=== PATIENT | male | born 1955 | race American Indian/Alaskan Native ===

== ENCOUNTER 2019-08-22 09:07 | Day surgery (SDC) | payer BC, MEDICARE ==
[2019-08-22] MEDS ORDERED: SODIUM CHLORIDE 0.9% 500 ML 500 ML IV SCH (10:00)
[2019-08-22 10:09] LABS: Basophils # (Auto) 0.1 K/mm3 (0.0-0.1); Basophils % (Auto) 2.2 % (0.0-1.8); Eosinophils # (Auto) 0.2 K/mm3 (0.0-0.4); Eosinophils % (Auto) 3.5 % (0.0-4.3); Hematocrit 35.5 % (35.5-45.6); Hemoglobin 11.8 gm/dl (11.8-15.2); Lymphocytes # (Auto) 2.1 K/mm3 (1.2-5.4); Lymphocytes % (Auto) 31.2 % (13.4-35.0); Mean Corpuscular HGB Conc 33 % (32-34); Mean Corpuscular Volume 80 fl (84-94); Monocytes # (Auto) 0.6 K/mm3 (0.0-0.8); Monocytes % (Auto) 9.3 % (0.0-7.3); Platelet Count 508 K/mm3 (140-440); Red Blood Count 4.47 M/mm3 (3.65-5.03)
[2019-08-22 10:13] LABS: INR 1.38 (0.87-1.13)
[2019-08-22 10:14] LABS: Partial Thromboplastin Time 30.3 Sec. (24.2-36.6)
[2019-08-22 10:20] LABS: Calcium 10.3 mg/dL (8.4-10.2)
[2019-08-22] MEDS ORDERED: HEPARIN/NS 5000 UNIT/500ML 1,500 ML IR ONE (11:43)
[2019-08-22] MEDS ORDERED: LIDOCAINE 1%/EPINEPHRINE 1:100,000 VIAL (20 ML) INFILTRATI ONE (11:43)
[2019-08-22] MEDS ORDERED: NITROGLYCERIN SYRINGE 3 ML ONE (11:46)
[2019-08-22] MEDS ORDERED: SODIUM CHLORIDE 0.9% 500 ML 500 ML ONE (12:04)
[2019-08-22] MEDS: fentaNYL 100 MCG/2 ML INJ ONE ×4 (12:10→13:40)
[2019-08-22] MEDS: MIDAZOLAM 2 MG/2 ML INJ ONE ×4 (12:10→13:40)
[2019-08-22] MEDS ORDERED: VERAPAMIL 5 MG/2 ML INJ ONE (12:27)
[2019-08-22] MEDS ORDERED: SODIUM CHLORIDE 0.9% 1000 ML 1,000 ML ONE (12:27)
[2019-08-22] MEDS ORDERED: NITROGLYCERIN DRIP 50 MG/250 ML BOTTLE ONE (12:27)
[2019-08-22] MEDS: HEPARIN 10,000 UNITS/10 ML VIAL ONE ×2 (12:34→13:19)
--- NOTE | 2019-08-22 13:51 | Short Stay Summary ---
Short Stay Documentation Date of service: 08/22/19 Narrative H&P: See H&P - History H&P: obtained from office - Allergies and Medications Current Medications: Allergies No Known Allergies Allergy (Verified 02/18/19 14:44) Home Medications Medication Instructions Recorded Confirmed Last Taken Type Dorzolamide HCl/Timolol Maleat 1 drop OU BID 02/18/19 08/22/19 08/22/19 History [Dorzolamide-Timolol Eye Drops] Aspirin EC [Halfprin EC] 81 mg PO QDAY #30 tablet 08/12/19 08/22/19 08/22/19 Rx AtorvaSTATin [Lipitor] 40 mg PO QHS #30 tablet 08/12/19 08/22/19 08/21/19 Rx Clopidogrel [Plavix] 75 mg PO QDAY #30 tablet 08/12/19 08/22/19 08/22/19 Rx Furosemide [Lasix TAB] 40 mg PO BID #60 tablet 08/12/19 08/22/19 08/22/19 Rx Spironolactone [Aldactone] 25 mg PO QDAY #30 tablet 08/12/19 08/22/19 08/22/19 Rx hydroCHLOROthiazide [HCTZ] 12.5 mg PO QDAY #30 capsule 08/12/19 08/22/19 08/22/19 Rx lisinopriL [Zestril TAB] 5 mg PO QDAY #30 tablet 08/12/19 08/22/19 08/22/19 Rx oxyCODONE /ACETAMINOPHEN [Percocet 1 tab PO Q6HR PRN #20 tablet 08/12/19 08/22/19 08/21/19 Rx 5/325 mg] Active Medications Sodium Chloride (Nacl 0.9% 500 Ml) 500 mls @ 50 mls/hr IV DIRECT THOMPSON Last Admin: 08/22/19 12:00 Dose: 100 mls Documented by: - Brief post op/procedure progress note Date of procedure: 08/22/19 Pre-op diagnosis: Peripheral Vascular Disease with L Lower Extremity Critical Limb Ischemia Post-op diagnosis: same Procedure: 1. Ultrasound-Guided Access Right Common Femoral Artery 2. Diagnostic Left Lower Extremity Arteriogram (No Previous Films for Comparison) 3. Atherectomy with Angioplasty of Left SFA and Popliteal Artery with CSI 1.25 Solid Diamondback Orbital Atherectomy Catheter and 6.0 x 200 Angiosculpt Balloon and 6.0 x 150 IN.PACT Drug-Coated Balloon 4. Atherectomy with Angioplasty of Left Posterior Tibial Artery with CSI 1.25 Solid Diamondback Orbital Atherectomy Catheter and 3.0-3.5 x 220 Nanocross Balloon and 4.0 x 150 IN.PACT Drug-Coated Balloon x 2 5. Closure of Right Femoral Arteriotomy with Pro-[place] Closure Device 6. Radiologic Supervision with Interpretation Anesthesia: local, other (Monitored moderate sedation) Surgeon: URIAH JERRY Estimated blood loss: minimal Pathology: none Condition: stable - Disposition Condition at discharge: Good Disposition: DC-01 TO HOME OR SELFCARE Short Stay Discharge Plan Activity: other (No strenuous activity for 24 hours) Wound: remove dressing (24 hours), other (Do not soak wound in water for 48 hours but okay to wash the wound with soap and water.) Follow up with: URIAH JERRY MD [Staff Physician] - 14 Days
--- NOTE | 2019-08-22 13:53 | Operative Report ---
Operative Report Operative Report: Date of Procedure: 08/22/2019 Pre-operative Diagnosis: Peripheral Vascular Disease with Left Lower Extremity Critical Limb Ischemia Post-operative Diagnosis: Same Procedure(s): 1. Ultrasound-Guided Access Right Common Femoral Artery 2. Diagnostic Left Lower Extremity Arteriogram (No Previous Films for Salvatore rees) 3. Atherectomy with Angioplasty of Left SFA and Popliteal Artery with CSI 1.25 Solid Diamondback Orbital Atherectomy Catheter and 6.0 x 200 Angiosculpt Balloon and 6.0 x 150 IN.PACT Drug-Coated Balloon 4. Atherectomy with Angioplasty of Left Posterior Tibial Artery with CSI 1.25 Solid Diamondback Orbital Atherectomy Catheter and 3.0-3.5 x 220 Nanocross Balloon and 4.0 x 150 IN.PACT Drug-Coated Balloon x 2 5. Closure of Right Femoral Arteriotomy with Pro-[place] Closure Device 6. Radiologic Supervision with Interpretation Surgeon: Flaquito Nair M.D. Supervisor Telephone Answering Service: None Anesthesia: 1% Lidocaine/Monitored Moderate Sedation EBL: Minimal Counts: Correct Complications: None Condition: Stable Specimen: None Indication: The patient is a 63-year-old male with a history of peripheral vascular disease who has left leg rest pain with gangrene of his left first toe. He had a four- vessel coronary artery bypass in February 2019 and remained in the hospital for approximately 3 months in rehab prior to his discharge. He had intervention on his right lower extremity in June for a nonhealing ulcer and has now developed rest pain in his left lower extremity with the gangrene of his left first toe. Since his right lower extremity intervention he has also required a Life Vest secondary to cardiac arrhythmias. He had an ultrasound that demonstrated femoropopliteal disease as well as tibial disease. He is in need of a diagnostic left lower extremity arteriogram with possible intervention. He was given the risk, benefits, and alternative procedures and consented to the proc edure. Angiogram Findings: The diagnostic left lower extremity arteriogram revealed the left common iliac, hypogastric, and external iliac artery were patent without significant flow- limiting stenosis. The left common femoral artery was patent without evidence of flow-limiting stenosis. The profunda artery was diffusely diseased with severe stenosis in the distal branches. The SFA was diffusely diseased with stenosis ranging from 50 to 75%. The popliteal artery was diffusely diseased with multiple segments of stenosis and occluded in the above knee popliteal artery without evidence of reconstitution. All the tibial vessels were occluded at their origin in the posterior tibial artery reconstituted through collaterals in the distal third of the calf and was patent into the foot with an incomplete arch however was the only pedal vessel that appeared patent in the foot. After intervention the SFA and popliteal artery were patent with less than 15% residual stenosis. The posterior tibial artery was patent with less than 10% residual stenosis. Description of Procedure: The patient was brought to the Court Advocate and laid in supine position. After a timeout was performed his right groin was prepped and draped in normal sterile fashion. Ultrasound was used to identify the right common femoral artery and confirm patency. Once patency was confirmed the overlying skin and soft tissue was anesthetized with lidocaine. An 11 blade was used to make a small stab incision and a curved hemostat was used with ultrasound guidance to bluntly dissect down to the anterior surface of the artery. A 21-gauge micropuncture needle was used with ultrasound guidance to enter the right common femoral artery and a 0.018 wire was advanced into the artery. The needle was removed and a micropuncture sheath was advanced over the wire by Seldinger technique. The inner dilator and wire were removed and a 0.035 Bentson wire was advanced to the aorta under fluoroscopy. The micropuncture sheath was exchanged for 5 Congolese sheath by Seldinger technique. An Omni Flush catheter was advanced over the wire and the catheter and wire were advanced up and over the bifurcation and a left lower extremity arteriogram was performed with the previously described findings. The Bentson wire was then advanced into the distal popliteal artery and the 5 Congolese sheath was exchanged for 6 Congolese 65 cm destination sheath by Seldinger technique. At this point the patient was systemically heparinized with 6000 units of heparin IV. I advanced a Navicross catheter over the Bentson wire and then exchanged the Bentson wire for a 0.018 V18 and was able to traverse the occluded popliteal artery and was able to advance the catheter and wire into the occluded posterior tibial artery within the pedal arch. The wire was advanced into the arch however the catheter would not advance so I exchanged the catheter for a 0.018 crossing catheter. I removed the wire and performed an arteriogram confirming that the catheter was within the vessel and then advanced a 0.014 Viper Wire into the distal posterior tibial artery and then used a CSI 1.25 Solid Diamondback Orbital Atherectomy Catheter to perform atherectomy of the proximal and mid posterior tibial artery, the popliteal artery, and the mid and distal SFA. After performing atherectomy I performed angioplasty of the posterior tibial artery using a 3.0-3.5 x 220 Nanocross extending from the ankle throughout the artery followed by a low pressure inflation in the mid and proximal artery with a 4.0 x 150 IN.PACT Drug-Coated Balloon. This resulted in less than 10% residual stenosis of the posterior tibial artery and tibioperoneal trunk. I used 6.0 x 150 IN.PACT Drug-Coated Balloon to perform angioplasty of the distal popliteal artery resulting in less than 15% residual stenosis in the majority of the artery however there was a short segment in the above-knee portion with approximately 85% residual stenosis so I used a 6.0 x 200 Angioscul pt Balloon to perform angioplasty in this segment as well as the remainder of the popliteal artery and SFA with a result of less than 15% residual stenosis throughout the popliteal artery and SFA. I then pulled the sheath back into the right external iliac artery and advanced the Bentson wire into the aorta and used a Pro-glide closure device to close the right femoral arteriotomy. The right groin was then dressed with a sterile dressing and the patient was transported into the recovery area in stable condition.
[2019-08-22] MEDS ORDERED: oxyCODONE /ACETAMINOPHEN 5-325MG TAB PO PRN (14:00)
[2019-08-22 16:10] VITALS: BP 115/57
== END 2019-08-22 16:50 | disposition home or self-care (01) ==
LOC: CATHLABREC 09:07
PROVIDERS: ATTEND Surgery Vascular Surgery
DX: I73.9 Peripheral vascular disease, unspecified (principal); I99.8 Other disorder of circulatory system; J43.9 Emphysema, unspecified; I11.0 Hypertensive heart disease with heart failure; I50.9 Heart failure, unspecified; H40.9 Unspecified glaucoma; I25.118 Atherosclerotic heart disease of native coronary artery with other forms of angina pectoris; Z79.82 Long term (current) use of aspirin; Z68.25 Body mass index [BMI] 25.0-25.9, adult; Z86.73 Personal history of transient ischemic attack (TIA), and cerebral infarction without residual deficits; Z79.899 Other long term (current) drug therapy; Z87.891 Personal history of nicotine dependence; Z98.890 Other specified postprocedural states; Z95.1 Presence of aortocoronary bypass graft
CPT/HCPCS: 36415; 37225; 37229; 75710; 76937; 80048; 85025; 85610; 85730; 99156; 99157; C1724; C1725; C1760; C1769; C1887; C2623; J1644; J2250; J3010; J7030; J7040; Q9967

== ENCOUNTER 2019-09-07 11:22 | Outpatient (CLI) | payer BC, MEDICARE ==
[2019-09-07] MEDS ORDERED: LIDOCAINE (4%) 40 MG/ML TOPICAL SOLN 50 ML BOTTLE TP ONE (11:40)
== END 2019-09-07 11:23 | disposition home or self-care (01) ==
LOC: WOUND 11:22
PROVIDERS: ATTEND Surgery
DX: L89.153 Pressure ulcer of sacral region, stage 3 (principal); L89.626 Pressure-induced deep tissue damage of left heel; L89.616 Pressure-induced deep tissue damage of right heel; I70.262 Atherosclerosis of native arteries of extremities with gangrene, left leg; I70.261 Atherosclerosis of native arteries of extremities with gangrene, right leg; I11.0 Hypertensive heart disease with heart failure; I50.9 Heart failure, unspecified; I25.2 Old myocardial infarction; Z86.73 Personal history of transient ischemic attack (TIA), and cerebral infarction without residual deficits; Z87.891 Personal history of nicotine dependence; Z95.1 Presence of aortocoronary bypass graft

== ENCOUNTER 2020-01-04 10:23 | Outpatient (CLI) | payer BC, MEDICARE ==
[2020-01-04] MEDS ORDERED: LIDOCAINE (4%) 40 MG/ML TOPICAL SOLN 50 ML BOTTLE TP ONE (10:41)
[2020-01-04] MEDS ORDERED: SILVER NITRATE APPLICATOR 1 EA TP ONE (11:00)
== END 2020-01-04 10:24 | disposition home or self-care (01) ==
LOC: WOUND 10:23
PROVIDERS: ATTEND Surgery
DX: T87.89 Other complications of amputation stump (principal); L89.153 Pressure ulcer of sacral region, stage 3; I70.244 Atherosclerosis of native arteries of left leg with ulceration of heel and midfoot; L89.626 Pressure-induced deep tissue damage of left heel; I70.234 Atherosclerosis of native arteries of right leg with ulceration of heel and midfoot; L89.616 Pressure-induced deep tissue damage of right heel; I70.235 Atherosclerosis of native arteries of right leg with ulceration of other part of foot; L97.513 Non-pressure chronic ulcer of other part of right foot with necrosis of muscle; I70.262 Atherosclerosis of native arteries of extremities with gangrene, left leg; I11.0 Hypertensive heart disease with heart failure; I50.9 Heart failure, unspecified; I25.2 Old myocardial infarction; I25.10 Atherosclerotic heart disease of native coronary artery without angina pectoris; Z86.73 Personal history of transient ischemic attack (TIA), and cerebral infarction without residual deficits; Z87.891 Personal history of nicotine dependence; Z95.1 Presence of aortocoronary bypass graft

== ENCOUNTER 2020-01-18 09:57 | Outpatient (CLI) | payer MEDICARE ==
[2020-01-18] MEDS ORDERED: LIDOCAINE (4%) 40 MG/ML TOPICAL SOLN 50 ML BOTTLE TP ONE (10:25)
== END 2020-01-18 09:58 | disposition home or self-care (01) ==
LOC: WOUND 09:57
PROVIDERS: ATTEND Surgery
DX: T87.89 Other complications of amputation stump (principal); I70.235 Atherosclerosis of native arteries of right leg with ulceration of other part of foot; L97.515 Non-pressure chronic ulcer of other part of right foot with muscle involvement without evidence of necrosis; I70.234 Atherosclerosis of native arteries of right leg with ulceration of heel and midfoot; L89.616 Pressure-induced deep tissue damage of right heel; L97.411 Non-pressure chronic ulcer of right heel and midfoot limited to breakdown of skin; L89.153 Pressure ulcer of sacral region, stage 3; L84 Corns and callosities; I70.262 Atherosclerosis of native arteries of extremities with gangrene, left leg; I11.0 Hypertensive heart disease with heart failure; I50.9 Heart failure, unspecified; I25.2 Old myocardial infarction; I25.10 Atherosclerotic heart disease of native coronary artery without angina pectoris; Z86.73 Personal history of transient ischemic attack (TIA), and cerebral infarction without residual deficits; Z87.891 Personal history of nicotine dependence; Z95.1 Presence of aortocoronary bypass graft; Y83.5 Amputation of limb(s) as the cause of abnormal reaction of the patient, or of later complication, without mention of misadventure at the time of the procedure

== ENCOUNTER 2020-01-18 12:23 | Emergency (ER) | payer BC, MEDICAID, MEDICARE ==
--- NOTE | 2020-01-18 13:28 | Emergency Department Report ---
ED Syncope HPI - General Chief Complaint: Weakness Stated Complaint: PASSED OUT Time Seen by Provider: 01/18/20 13:16 Source: family Exam Limitations: no limitations - History of Present Illness Initial Comments: 65-year-old male with history of CAD, cardiomyopathy with LifeVest, seizure disorder, COPD, hypertension, glaucoma, presents to ED following syncopal episode. Patient had an appointment with the wound care physician for follow-up following amputation of left forefoot and right toes. Patient and report that patient lost "a lot" of blood from his right foot during the office visit. After leaving, was wheeling patient in the wheelchair which she noticed that he had passed out. Patient states he does remember feeling lightheaded and slightly nauseated prior to passing out. Patient denies any chest pain, shortness of breath, headache, palpitations, or electrical shock from his LifeVest. Consulting Sales Executive: Dr Guerra Timing/Prior Episodes: single episode today Precipitating Factors: Positive: lightheadedness, nausea. Negative: diaphoresis, pain, rapid heart beat Context: sitting Loss of Consciousness: brief (seconds) Current Symptoms: back to normal. denies: chest pain, headache - Related Data Allergies/Adverse Reactions: Allergies No Known Allergies Allergy (Verified 01/17/20 15:57) Home Medications: Ambulatory Orders Dorzolamide HCl/Timolol Maleat [Dorzolamide-Timolol Eye Drops] 1 drop OU BID 02/18/19 Aspirin EC [Halfprin EC] 81 mg PO QDAY #30 tablet 08/12/19 AtorvaSTATin [Lipitor] 40 mg PO QHS #30 tablet 08/12/19 Clopidogrel [Plavix] 75 mg PO QDAY #30 tablet 08/12/19 Furosemide [Lasix TAB] 40 mg PO QDAY tablet 09/22/19 carvediloL [Coreg] 3.125 mg PO BID #60 tablet 09/22/19 Apixaban [Eliquis] 5 mg PO BID #60 tablet 10/12/19 Nitroglycerin [Nitrostat] 0.4 mg SL Q5M PRN 10/17/19 lisinopriL [Zestril TAB] 5 mg PO QDAY 10/17/19 Oxycodone HCl/Acetaminophen [Percocet 7.5/325 mg] 1 each PO Q6HR PRN #40 tablet 10/19/19 Azithromycin [Zithromax TAB] 500 mg PO QDAY #2 tablet 11/03/19 oxyCODONE /ACETAMINOPHEN [Percocet 5/325] 1 tab PO TID PRN #15 tablet 11/03/19 ED Review of Systems ROS: Stated complaint: PASSED OUT Other details as noted in HPI Comment: All other systems reviewed and negative Constitutional: denies: chills, fever Respiratory: denies: cough, shortness of breath Cardiovascular: denies: chest pain, palpitations Gastrointestinal: nausea. denies: abdominal pain, vomiting, diarrhea Neurological: denies: headache ED Past Medical Hx - Past Medical History Previous Medical History?: Yes Hx Hypertension: Yes Hx CVA: Yes (right sided weakness from previous stroke) Hx Heart Attack/AMI: Yes (s/p CABG 02/2019; EF 10-15%) Hx Congestive Heart Failure: Yes (CHRONIC HEART FAILURE) Hx Liver Disease: No Hx Renal Disease: No Hx Seizures: Yes Hx COPD: No (noted in chart however patient and deny. No inhalers in med list.) Hx HIV: No Additional medical history: Glaucoma. Legally blind - Surgical History Past Surgical History?: Yes Hx Open Heart Surgery: Yes (CABG X 4 VESSELS 02/2019) Hx Internal Defibrillator: No (wears life vest) Additional Surgical History: Hernia, CABG 4 vessel - Social History Smoking Status: Never Smoker - Medications Home Medications: Home Medications Medication Instructions Recorded Confirmed Last Taken Type Dorzolamide HCl/Timolol Maleat 1 drop OU BID 02/18/19 01/17/20 10/25/19 History [Dorzolamide-Timolol Eye Drops] Aspirin EC [Halfprin EC] 81 mg PO QDAY #30 tablet 08/12/19 01/17/20 10/25/19 Rx AtorvaSTATin [Lipitor] 40 mg PO QHS #30 tablet 08/12/19 01/17/20 10/25/19 Rx Clopidogrel [Plavix] 75 mg PO QDAY #30 tablet 08/12/19 01/17/20 10/25/19 Rx Furosemide [Lasix TAB] 40 mg PO QDAY tablet 09/22/19 01/17/20 10/25/19 Rx carvediloL [Coreg] 3.125 mg PO BID #60 tablet 09/22/19 01/17/20 10/25/19 Rx Apixaban [Eliquis] 5 mg PO BID #60 tablet 10/12/19 01/17/20 10/25/19 Rx Nitroglycerin [Nitrostat] 0.4 mg SL Q5M PRN 10/17/19 01/17/20 Unknown History lisinopriL [Zestril TAB] 5 mg PO QDAY 10/17/19 01/17/20 10/25/19 History Oxycodone HCl/Acetaminophen 1 each PO Q6HR PRN #40 tablet 10/19/19 01/17/20 10/25/19 Rx [Percocet 7.5/325 mg] Azithromycin [Zithromax TAB] 500 mg PO QDAY #2 tablet 11/03/19 01/17/20 Unknown Rx oxyCODONE /ACETAMINOPHEN [Percocet 1 tab PO TID PRN #15 tablet 11/03/19 01/17/20 Unknown Rx 5/325] ED Physical Exam - General Limitations: No Limitations General appearance: alert, in no apparent distress - Head Head exam: Present: atraumatic, normocephalic - Eye Eye exam: Present: normal appearance - ENT ENT exam: Present: mucous membranes moist - Neck Neck exam: Present: normal inspection - Respiratory Respiratory exam: Present: normal lung sounds bilaterally. Absent: respiratory distress - Cardiovascular Cardiovascular Exam: Present: regular rate, normal rhythm - GI/Abdominal GI/Abdominal exam: Present: soft. Absent: distended, tenderness - Extremities Exam Extremities exam: Present: other (bilateral feet in bandages w/ obvious left forefoot amputation) - Neurological Exam Neurological exam: Present: alert, oriented X3 - Psychiatric Psychiatric exam: Present: normal affect, normal mood - Skin Skin exam: Present: warm, dry, intact, normal color ED Course Vital Signs 01/18/20 13:58 Temperature 97.8 F Pulse Rate 58 L Respiratory 18 Rate Blood Pressure 127/48 [Left] O2 Sat by Pulse 98 Oximetry - Reevaluation(s) Reevaluation #1: 01/18/20 14:54 Marco A contacted for interrogation of patient's LifeVest. However, has to go home to get another part of the device. When she returns we will re-contact Marco A. - Consultations Consultation #1: 01/18/20 14:[address] Trimble for review. No STEMI. Suggested obtaining interrogation of LifeVest as arrhythmia may be a cause of patient's syncopal episode. Consultation #2: 01/18/20 15:[address] Guerra, patient's county agricultural agent. Would like a return call after LifeVest is interrogated. ED Medical Decision Making - Lab Data Result diagrams: 01/18/20 13:26 01/18/20 13:26 - EKG Data -: EKG Interpreted by [facility] EKG shows normal: sinus rhythm - EKG Data When compared to previous EKG there are: no significant change (compared to 09/2019) Interpretation: other (LBBB) - Radiology Data Radiology results: report reviewed, image reviewed Critical care attestation.: If time is entered above; I have spent that time in minutes in the direct care of this critically ill patient, excluding procedure time. ED Disposition Clinical Impression: Syncope Condition: Stable Instructions: Syncope (ED)
[2020-01-18 13:46] LABS: Basophils # (Auto) 0.1 K/mm3 (0.0-0.1); Basophils % (Auto) 0.7 % (0.0-1.8); Eosinophils # (Auto) 0.1 K/mm3 (0.0-0.4); Eosinophils % (Auto) 1.9 % (0.0-4.3); Hematocrit 31.5 % (35.5-45.6); Hemoglobin 10.5 gm/dl (11.8-15.2); Lymphocytes # (Auto) 2.3 K/mm3 (1.2-5.4); Lymphocytes % (Auto) 29.5 % (13.4-35.0); Mean Corpuscular HGB Conc 33 % (32-34); Mean Corpuscular Volume 84 fl (84-94); Monocytes # (Auto) 0.4 K/mm3 (0.0-0.8); Monocytes % (Auto) 5.3 % (0.0-7.3); Platelet Count 312 K/mm3 (140-440); Red Blood Count 3.76 M/mm3 (3.65-5.03); Red Cell Distribution Width 14.9 % (13.2-15.2)
[2020-01-18 13:56] LABS: INR 1.66 (0.87-1.13)
[2020-01-18 13:57] LABS: Partial Thromboplastin Time 31.1 Sec. (24.2-36.6)
[2020-01-18 14:06] LABS: BUN/Creatinine Ratio 21; Blood Urea Nitrogen 30 mg/dL (9-20); Calcium 9.9 mg/dL (8.4-10.2); Hemolysis Index 28
--- NOTE | 2020-01-18 15:17 | XRay Report ---
CHEST 1 VIEW INDICATION: syncope COMPARISON: 09/30/2019 FINDINGS: Support devices: Previous sternotomy. External site monitor. Heart: Normal and unchanged Lungs/Pleura: No acute pulmonary or pleural findings. IMPRESSION: 1. No acute disease and no interval change. Signer Name: Balaji Diaz MD Signed: 01/18/2020 3:12 PM Workstation Name: [id number]
--- NOTE | 2020-01-18 16:52 | Emergency Department Report ---
Blank Doc - Documentation Documentation: LifeVest textile designs sales representative came to interrogate the patient's LifeVest and it does not show any arrhythmias. Spoke with Dr. Guerra and the patient can follow-up and his clinic as outpatient. This was discussed with the patient who understood the plan of care.
[2020-01-18 19:04] VITALS: BP 110/47
== END 2020-01-18 17:20 | disposition home or self-care (01) ==
LOC: ED 12:23
DX: R55 Syncope and collapse (principal); I50.9 Heart failure, unspecified; I11.0 Hypertensive heart disease with heart failure; R56.9 Unspecified convulsions; I25.2 Old myocardial infarction; Z86.73 Personal history of transient ischemic attack (TIA), and cerebral infarction without residual deficits; Z98.890 Other specified postprocedural states; Z79.2 Long term (current) use of antibiotics; Z79.899 Other long term (current) drug therapy
CPT/HCPCS: 36415; 71045; 80048; 82962; 84484; 85025; 85610; 85730; 93005

== ENCOUNTER 2020-01-20 07:47 | Day surgery (SDC) | payer BC, MEDICAID, MEDICARE ==
--- NOTE | 2020-01-19 10:47 | Anesthesia Consultation ---
Anesthesia Consult and Med Hx Date of service: 01/20/20 - Airway Anesthetic Teeth Evaluation: Poor ROM Head & Neck: Adequate Mental/Hyoid Distance: Adequate Mallampati Class: Class I Intubation Access Assessment: Probably Good - Pulmonary Exam CTA: Yes - Cardiac Exam Cardiac Exam: RRR - Pre-Operative Health Status ASA Pre-Surgery Classification: ASA4 Proposed Anesthetic Plan: MAC Nerve Block: Ank - Pulmonary Hx Smoking: Yes (quit 01/2019) SOB: Yes (chronic VALDEZ) Hx Sleep Apnea: No ([place]ICA PRE SCREEN HIGH RISK) - Cardiovascular System Hx Hypertension: Yes Hx Coronary Artery Disease: Yes Hx Heart Attack/AMI: Yes (s/p CABG 02/2019; EF 10-15%) Hx Cardia Arrhythmia: No (chronic LBBB on EKG) Hx Internal Defibrillator: No (wears life vest) Hx Peripheral Vascular Disease: Yes (s/p L TMA) - Central Nervous System CVA: Yes (residual right side weakness) Hx Psychiatric Problems: No - Gastrointestinal Hx Gastroesophageal Reflux Disease: No - Endocrine Hx Renal Disease: Yes (CKD) Hx Liver Disease: No Hx Insulin Dependent Diabetes: No Hx Non-Insulin Dependent Diabetes: No Hx Thyroid Disease: No - Hematic Hx Anemia: Yes - Other Systems Hx Obesity: No - Additional Comments Anesthesia Medical History Comments: Patient was evaluated in ED 01/18/20 for syncopal episode while in wound clinic. Life vest was interrogated; no arrhtyhmias and vest functioning properly. Additional work up was significant only for anemia. Patient required no additional interventions and was d/c'd home from the ED. ED physican notes and studies reviewed. Again discussed with patient and the high risk for adverse cardiac events periperatively given severity of medical conditions. Both verbalized understanding. Will plan for MAC + regional block as patient reports this worked well for similar procedure done on the other foot previously.
[~2020-01-20 07:47] MED LIST: LACTATED RINGERS 1,000 ML IV SCH; MIDAZOLAM 2 MG/2 ML INJ IV NR; ceFAZolin/Water 2 GM/20 ML 2 GM/20 ML SYRINGE IV NR
[2020-01-20] MEDS ORDERED: BUPIVACAINE/PF (0.5%) 5 MG/1 ML 30 ML VIAL INFILTRATI ONE (08:11)
--- NOTE | 2020-01-20 09:28 | Anesthesia Day of Surgery ---
Anesthesia Day of Surgery - Day of Surgery Patient Examined: Yes Patient H&P Reviewed: Yes Patient is NPO: Yes
[2020-01-20] MEDS ORDERED: MIDAZOLAM 2 MG/2 ML INJ ONE (09:50)
[2020-01-20] MEDS ORDERED: fentaNYL 100 MCG/2 ML INJ ONE ×2 (09:56→12:12)
[2020-01-20] MEDS ORDERED: KETAMINE/STERILE WATER 50 MG/ML SYRINGE ONE (09:57)
[2020-01-20] MEDS ORDERED: LIDOCAINE (1%) 10 MG/1 ML VIAL 20 ML MDV ONE (10:34)
[2020-01-20] MEDS ORDERED: SODIUM CHLORIDE 0.9% IRR 1,500 ML BOTTLE IR ONE (10:53)
[2020-01-20] MEDS ORDERED: LIDOCAINE (1%) 10 MG/1 ML VIAL 20 ML MDV INFILTRATI ONE (10:53)
--- NOTE | 2020-01-20 11:47 | Short Stay Summary ---
Short Stay Documentation Date of service: 01/20/20 Narrative H&P: See H&P - History H&P: obtained from office - Allergies and Medications Current Medications: Allergies No Known Allergies Allergy (Verified 01/17/20 15:57) Home Medications Medication Instructions Recorded Confirmed Last Taken Type Dorzolamide HCl/Timolol Maleat 1 drop OU BID 02/18/19 01/17/20 01/19/20 History [Dorzolamide-Timolol Eye Drops] Aspirin EC [Halfprin EC] 81 mg PO QDAY #30 tablet 08/12/19 01/17/20 01/19/20 Rx AtorvaSTATin [Lipitor] 40 mg PO QHS #30 tablet 08/12/19 01/17/20 01/19/20 Rx Clopidogrel [Plavix] 75 mg PO QDAY #30 tablet 08/12/19 01/20/20 01/19/20 Rx Furosemide [Lasix TAB] 40 mg PO QDAY tablet 09/22/19 01/17/20 01/19/20 Rx carvediloL [Coreg] 3.125 mg PO BID #60 tablet 09/22/19 01/17/20 01/19/20 Rx Apixaban [Eliquis] 5 mg PO BID #60 tablet 10/12/19 01/20/20 01/20/20 07:15 Rx Nitroglycerin [Nitrostat] 0.4 mg SL Q5M PRN 10/17/19 01/17/20 Unknown History lisinopriL [Zestril TAB] 5 mg PO QDAY 10/17/19 01/17/20 01/19/20 History Azithromycin [Zithromax TAB] 500 mg PO QDAY #2 tablet 11/03/19 01/17/20 01/19/20 Rx oxyCODONE /ACETAMINOPHEN [Percocet 1 tab PO TID PRN #15 tablet 11/03/19 01/17/20 01/19/20 Rx 5/325] Active Medications Cefazolin Sodium (Ancef/Sterile Water 2 Gm/20 Ml) 2 gm in 20 mls @ 80 mls/hr IV PREOP NR; Protocol Stop: 01/20/20 23:00 Lactated Ringer's (Lactated Ringers) 1,000 mls @ 50 mls/hr IV DIRECT THOMPSON Stop: 01/20/20 23:59 Last Admin: 01/20/20 09:10 Dose: 50 mls/hr Documented by: Midazolam HCl (Versed) 2 mg IV PREOP NR Stop: 01/20/20 23:59 Last Admin: 01/20/20 09:15 Dose: 2 mg Documented by: - Brief post op/procedure progress note Date of procedure: 01/20/20 Pre-op diagnosis: Peripheral Vascular Disease with Right Lower Extremity Gangrene Post-op diagnosis: same Procedure: Right Transmetatarsal Amputation Anesthesia: MAC, regional Surgeon: URIAH JERRY Estimated blood loss: other (300 ml) Pathology: list (Right Forefoot) Specimen disposition: to lab Condition: stable - Disposition Condition at discharge: Good Disposition: DC- TO HOME OR SELFCARE Short Stay Discharge Plan Activity: other Weight Bearing Status: Non-Weight Bearing (Right Foot) Wound: remove dressing (48 hours, then change dressing daily. After initial dressing is removed, okay to wash the wound with soap and water but do not soak in water) Follow up with: URIAH JERRY MD [Staff Physician] - 14 Days Prescriptions: Oxycodone HCl/Acetaminophen [Percocet 10/325 mg] 1 each PO Q6HR PRN #40 tablet PRN Reason: Pain
--- NOTE | 2020-01-20 11:54 | Operative Report ---
Operative Report Operative Report: Date of procedure: 01/20/2020 Pre-operative diagnosis: Peripheral Vascular Disease with Right Foot Gangrene Post-operative diagnosis: Same Procedure(s): 1. Right transmetatarsal Amputation Surgeon: Flaquito Nair MD Personnel Records Clerk: None Anesthesia: Regional Block/MAC EBL: 300 mL Counts: Correct Complications: None Condition: Stable Findings: Right foot transmetatarsal amputation was performed and all tissue was healthy and viable. Wound was closed without tension on the incision. Specimen: Right forefoot sent for pathology Indication: The patient is a 64-year-old male with a history of peripheral vascular disease who had a revascularization of his right lower extremity for nonhealing wounds. He had a amputation of his right fifth digit and despite that the wound has healed poorly and is progressed to have gangrene of multiple toes of the right foot. He has adequate flow in the hindfoot so he is a candidate for a transmetatarsal amputation. He was given the risk, benefits, and alternative procedures and consented to the procedure. Description of Procedure: Prior to the patient being transported to the operating room he had an ankle block performed in the preoperative area. The patient was then brought to the operating room and laid in supine position. After he was adequately sedated his right foot was prepped and draped in normal sterile fashion. A transverse incision was then created along the midportion of the metatarsals and carried distally to create a posterior flap. Additional lidocaine was used to further achieve anesthesia in the area of the distal forefoot. Electrocautery was used to take the dissection down to the metatarsals and the periosteum was then elevated on each metatarsal. The oscillating saw was then used to transect each metatarsal and then electrocautery was used to divide the remaining soft tissue and the specimen was passed off. Cautery was then used to achieve hemostasis within the wound and then a rasp was used to smooth each edge of the bone. The wound was copiously irrigated with saline. The wound was then closed in 2 layers using 2-0 Vicryl to reapproximate the deep dermal layer and salma in the skin. The wound was then dressed with Xeroform gauze, fluffs, Kerlix, and an Salvador bandage. The patient tolerated procedure well. All sponge, needle, and instrument counts were correct. The patient was taken to the recovery area in stable condition.
[2020-01-20] MEDS ORDERED: fentaNYL 100 MCG/2 ML INJ IV PRN (12:09)
[2020-01-20] MEDS: fentaNYL 100 MCG/2 ML INJ IV PRN ×2 (12:13→12:30)
--- NOTE | 2020-01-20 13:36 | Post Anesthesia Evaluation ---
- Post Anesthesia Evaluation Patient Participated: Yes Airway Patent: Yes Stable Respiratory Function: Yes Nausea/Vomiting: No Temp > 96.8F: Yes Pain Manageable: Yes Adequeate Hydration: Yes Anesthesia Complications: No
[2020-01-20 14:10] VITALS: BP 143/80
== END 2020-01-20 07:48 | disposition home or self-care (01) ==
LOC: OR 07:47 → EDSTATUS 09:30
PROVIDERS: ATTEND Surgery Vascular Surgery
DX: I70.235 Atherosclerosis of native arteries of right leg with ulceration of other part of foot (principal); Z20.828 Contact with and (suspected) exposure to other viral communicable diseases; I25.2 Old myocardial infarction; J43.9 Emphysema, unspecified; I25.118 Atherosclerotic heart disease of native coronary artery with other forms of angina pectoris; H40.9 Unspecified glaucoma; I13.0 Hypertensive heart and chronic kidney disease with heart failure and stage 1 through stage 4 chronic kidney disease, or unspecified chronic kidney disease; N18.9 Chronic kidney disease, unspecified; I50.9 Heart failure, unspecified; E78.5 Hyperlipidemia, unspecified; E66.9 Obesity, unspecified; Z68.35 Body mass index [BMI] 35.0-35.9, adult; Z79.899 Other long term (current) drug therapy; Z79.82 Long term (current) use of aspirin; Z86.79 Personal history of other diseases of the circulatory system; Z90.49 Acquired absence of other specified parts of digestive tract; Z98.890 Other specified postprocedural states; Z91.81 History of falling; Z95.1 Presence of aortocoronary bypass graft; Z89.431 Acquired absence of right foot; Z86.73 Personal history of transient ischemic attack (TIA), and cerebral infarction without residual deficits; Z86.69 Personal history of other diseases of the nervous system and sense organs; Z82.49 Family history of ischemic heart disease and other diseases of the circulatory system
CPT/HCPCS: 28805; 88307; 88311; J0690; J2250; J3010; J3490; J7120; U0003

== ENCOUNTER 2020-02-15 09:59 | Outpatient (CLI) | payer BC, MEDICAID ==
[2020-02-15] MEDS ORDERED: LIDOCAINE (4%) 40 MG/ML TOPICAL SOLN 50 ML BOTTLE TP NR (10:03)
== END 2020-02-15 10:00 | disposition home or self-care (01) ==
LOC: WOUND 09:59
PROVIDERS: ATTEND Surgery
DX: T87.89 Other complications of amputation stump (principal); I70.235 Atherosclerosis of native arteries of right leg with ulceration of other part of foot; L97.512 Non-pressure chronic ulcer of other part of right foot with fat layer exposed; I70.234 Atherosclerosis of native arteries of right leg with ulceration of heel and midfoot; L89.616 Pressure-induced deep tissue damage of right heel; L89.153 Pressure ulcer of sacral region, stage 3; L84 Corns and callosities; I70.262 Atherosclerosis of native arteries of extremities with gangrene, left leg; I11.0 Hypertensive heart disease with heart failure; I50.9 Heart failure, unspecified; I25.2 Old myocardial infarction; I25.10 Atherosclerotic heart disease of native coronary artery without angina pectoris; Z86.73 Personal history of transient ischemic attack (TIA), and cerebral infarction without residual deficits; Z87.891 Personal history of nicotine dependence; Z95.1 Presence of aortocoronary bypass graft; Y83.5 Amputation of limb(s) as the cause of abnormal reaction of the patient, or of later complication, without mention of misadventure at the time of the procedure

== ENCOUNTER 2020-02-22 09:24 | Outpatient (CLI) | payer BC, MEDICAID ==
[2020-02-22] MEDS ORDERED: LIDOCAINE (4%) 40 MG/ML TOPICAL SOLN 50 ML BOTTLE TP ONE (09:32)
== END 2020-02-22 09:25 | disposition home or self-care (01) ==
LOC: WOUND 09:24
PROVIDERS: ATTEND Surgery
DX: T87.89 Other complications of amputation stump (principal); L95.9 Vasculitis limited to the skin, unspecified; L97.512 Non-pressure chronic ulcer of other part of right foot with fat layer exposed; I70.262 Atherosclerosis of native arteries of extremities with gangrene, left leg; L97.821 Non-pressure chronic ulcer of other part of left lower leg limited to breakdown of skin; I70.261 Atherosclerosis of native arteries of extremities with gangrene, right leg; L97.811 Non-pressure chronic ulcer of other part of right lower leg limited to breakdown of skin; L89.153 Pressure ulcer of sacral region, stage 3; L84 Corns and callosities; I11.0 Hypertensive heart disease with heart failure; I50.9 Heart failure, unspecified; I25.2 Old myocardial infarction; I25.10 Atherosclerotic heart disease of native coronary artery without angina pectoris; Z86.73 Personal history of transient ischemic attack (TIA), and cerebral infarction without residual deficits; Z87.891 Personal history of nicotine dependence; Z95.1 Presence of aortocoronary bypass graft; Y83.5 Amputation of limb(s) as the cause of abnormal reaction of the patient, or of later complication, without mention of misadventure at the time of the procedure

== ENCOUNTER 2020-02-29 09:33 | Outpatient (CLI) | payer BC, MEDICAID ==
[2020-02-29] MEDS ORDERED: LIDOCAINE (4%) 40 MG/ML TOPICAL SOLN 50 ML BOTTLE TP ONE (09:34)
== END 2020-02-29 09:34 | disposition home or self-care (01) ==
LOC: WOUND 09:33
PROVIDERS: ATTEND Surgery
DX: T87.89 Other complications of amputation stump (principal); I70.262 Atherosclerosis of native arteries of extremities with gangrene, left leg; L97.526 Non-pressure chronic ulcer of other part of left foot with bone involvement without evidence of necrosis; L97.821 Non-pressure chronic ulcer of other part of left lower leg limited to breakdown of skin; I70.261 Atherosclerosis of native arteries of extremities with gangrene, right leg; L97.811 Non-pressure chronic ulcer of other part of right lower leg limited to breakdown of skin; L89.153 Pressure ulcer of sacral region, stage 3; L84 Corns and callosities; L95.9 Vasculitis limited to the skin, unspecified; I11.0 Hypertensive heart disease with heart failure; I50.9 Heart failure, unspecified; I25.2 Old myocardial infarction; I25.10 Atherosclerotic heart disease of native coronary artery without angina pectoris; Z86.73 Personal history of transient ischemic attack (TIA), and cerebral infarction without residual deficits; Z87.891 Personal history of nicotine dependence; Z95.1 Presence of aortocoronary bypass graft; Y83.5 Amputation of limb(s) as the cause of abnormal reaction of the patient, or of later complication, without mention of misadventure at the time of the procedure

== ENCOUNTER 2020-03-07 09:35 | Outpatient (CLI) | payer BC, MEDICAID ==
[2020-03-07] MEDS ORDERED: LIDOCAINE (4%) 40 MG/ML TOPICAL SOLN 50 ML BOTTLE TP ONE (09:40)
== END 2020-03-07 09:36 | disposition home or self-care (01) ==
LOC: WOUND 09:35
PROVIDERS: ATTEND Surgery
DX: T87.89 Other complications of amputation stump (principal); I70.263 Atherosclerosis of native arteries of extremities with gangrene, bilateral legs; L97.812 Non-pressure chronic ulcer of other part of right lower leg with fat layer exposed; L89.153 Pressure ulcer of sacral region, stage 3; L84 Corns and callosities; L95.9 Vasculitis limited to the skin, unspecified; I11.0 Hypertensive heart disease with heart failure; I50.9 Heart failure, unspecified; I25.2 Old myocardial infarction; I25.10 Atherosclerotic heart disease of native coronary artery without angina pectoris; Z86.73 Personal history of transient ischemic attack (TIA), and cerebral infarction without residual deficits; Z87.891 Personal history of nicotine dependence; Z95.1 Presence of aortocoronary bypass graft; Y83.5 Amputation of limb(s) as the cause of abnormal reaction of the patient, or of later complication, without mention of misadventure at the time of the procedure

== ENCOUNTER 2020-03-28 09:02 | Outpatient (CLI) | payer BC, MEDICAID ==
[2020-03-28] MEDS ORDERED: LIDOCAINE (4%) 40 MG/ML TOPICAL SOLN 50 ML BOTTLE TP ONE (09:05)
== END 2020-03-28 09:03 | disposition home or self-care (01) ==
LOC: WOUND 09:02
PROVIDERS: ATTEND Surgery
DX: T87.89 Other complications of amputation stump (principal); I70.263 Atherosclerosis of native arteries of extremities with gangrene, bilateral legs; L97.812 Non-pressure chronic ulcer of other part of right lower leg with fat layer exposed; L89.153 Pressure ulcer of sacral region, stage 3; L84 Corns and callosities; L95.9 Vasculitis limited to the skin, unspecified; I11.0 Hypertensive heart disease with heart failure; I50.9 Heart failure, unspecified; I25.2 Old myocardial infarction; I25.10 Atherosclerotic heart disease of native coronary artery without angina pectoris; Z86.73 Personal history of transient ischemic attack (TIA), and cerebral infarction without residual deficits; Z87.891 Personal history of nicotine dependence; Z95.1 Presence of aortocoronary bypass graft; Y83.5 Amputation of limb(s) as the cause of abnormal reaction of the patient, or of later complication, without mention of misadventure at the time of the procedure

== ENCOUNTER 2020-04-25 08:40 | Outpatient (CLI) | payer BC, MEDICARE ==
[2020-04-25] MEDS ORDERED: LIDOCAINE (4%) 40 MG/ML TOPICAL SOLN 50 ML BOTTLE TP ONE (08:54)
== END 2020-04-25 08:41 | disposition home or self-care (01) ==
LOC: WOUND 08:40
PROVIDERS: ATTEND Surgery
DX: T87.89 Other complications of amputation stump (principal); I70.263 Atherosclerosis of native arteries of extremities with gangrene, bilateral legs; L97.815 Non-pressure chronic ulcer of other part of right lower leg with muscle involvement without evidence of necrosis; L89.153 Pressure ulcer of sacral region, stage 3; L84 Corns and callosities; L95.9 Vasculitis limited to the skin, unspecified; I11.0 Hypertensive heart disease with heart failure; I50.9 Heart failure, unspecified; I25.2 Old myocardial infarction; I25.10 Atherosclerotic heart disease of native coronary artery without angina pectoris; Z86.73 Personal history of transient ischemic attack (TIA), and cerebral infarction without residual deficits; Z87.891 Personal history of nicotine dependence; Z95.1 Presence of aortocoronary bypass graft; Y83.5 Amputation of limb(s) as the cause of abnormal reaction of the patient, or of later complication, without mention of misadventure at the time of the procedure

== ENCOUNTER 2020-05-23 09:50 | Outpatient (CLI) | payer BC, MEDICARE | END 2020-05-23 09:51 | disposition home or self-care (01) | LOC: WOUND 09:50 | PROVIDERS: ATTEND Surgery | DX: T87.89 Other complications of amputation stump (principal); I70.263 Atherosclerosis of native arteries of extremities with gangrene, bilateral legs; L89.153 Pressure ulcer of sacral region, stage 3; L84 Corns and callosities; L95.9 Vasculitis limited to the skin, unspecified; I11.0 Hypertensive heart disease with heart failure; I50.9 Heart failure, unspecified; I25.2 Old myocardial infarction; I25.10 Atherosclerotic heart disease of native coronary artery without angina pectoris; Z86.73 Personal history of transient ischemic attack (TIA), and cerebral infarction without residual deficits; Z87.891 Personal history of nicotine dependence; Z95.1 Presence of aortocoronary bypass graft; Y83.5 Amputation of limb(s) as the cause of abnormal reaction of the patient, or of later complication, without mention of misadventure at the time of the procedure ==

== ENCOUNTER 2020-06-06 09:52 | Outpatient (CLI) | payer BC, MEDICARE ==
[2020-06-06] MEDS ORDERED: LIDOCAINE (4%) 40 MG/ML TOPICAL SOLN 50 ML BOTTLE TP ONE (09:53)
== END 2020-06-06 09:53 | disposition home or self-care (01) ==
LOC: WOUND 09:52
PROVIDERS: ATTEND Surgery
DX: T87.89 Other complications of amputation stump (principal); I70.263 Atherosclerosis of native arteries of extremities with gangrene, bilateral legs; L89.153 Pressure ulcer of sacral region, stage 3; L84 Corns and callosities; L95.9 Vasculitis limited to the skin, unspecified; I11.0 Hypertensive heart disease with heart failure; I50.9 Heart failure, unspecified; I25.2 Old myocardial infarction; I25.10 Atherosclerotic heart disease of native coronary artery without angina pectoris; Z86.73 Personal history of transient ischemic attack (TIA), and cerebral infarction without residual deficits; Z87.891 Personal history of nicotine dependence; Z95.1 Presence of aortocoronary bypass graft; Y83.5 Amputation of limb(s) as the cause of abnormal reaction of the patient, or of later complication, without mention of misadventure at the time of the procedure

== ENCOUNTER 2020-06-13 13:17 | Outpatient (CLI) | payer BC, MEDICARE ==
[2020-06-13] MEDS ORDERED: LIDOCAINE (4%) 40 MG/ML TOPICAL SOLN 50 ML BOTTLE TP ONE (13:43)
== END 2020-06-13 13:18 | disposition home or self-care (01) ==
LOC: WOUND 13:17
PROVIDERS: ATTEND Surgery
DX: T87.89 Other complications of amputation stump (principal); I70.263 Atherosclerosis of native arteries of extremities with gangrene, bilateral legs; L89.153 Pressure ulcer of sacral region, stage 3; L84 Corns and callosities; L95.9 Vasculitis limited to the skin, unspecified; I11.0 Hypertensive heart disease with heart failure; I50.9 Heart failure, unspecified; I25.2 Old myocardial infarction; I25.10 Atherosclerotic heart disease of native coronary artery without angina pectoris; Z86.73 Personal history of transient ischemic attack (TIA), and cerebral infarction without residual deficits; Z87.891 Personal history of nicotine dependence; Z95.1 Presence of aortocoronary bypass graft; Y83.5 Amputation of limb(s) as the cause of abnormal reaction of the patient, or of later complication, without mention of misadventure at the time of the procedure

== ENCOUNTER 2020-06-20 13:10 | Outpatient (CLI) | payer BC, MEDICARE ==
[2020-06-20] MEDS ORDERED: LIDOCAINE (4%) 40 MG/ML TOPICAL SOLN 50 ML BOTTLE TP ONE (13:31)
== END 2020-06-20 13:11 | disposition home or self-care (01) ==
LOC: WOUND 13:10
PROVIDERS: ATTEND Surgery
DX: T87.89 Other complications of amputation stump (principal); I70.263 Atherosclerosis of native arteries of extremities with gangrene, bilateral legs; L89.153 Pressure ulcer of sacral region, stage 3; L84 Corns and callosities; I11.0 Hypertensive heart disease with heart failure; I50.9 Heart failure, unspecified; I25.2 Old myocardial infarction; I25.10 Atherosclerotic heart disease of native coronary artery without angina pectoris; Z86.73 Personal history of transient ischemic attack (TIA), and cerebral infarction without residual deficits; Z87.891 Personal history of nicotine dependence; Z95.1 Presence of aortocoronary bypass graft; Y83.5 Amputation of limb(s) as the cause of abnormal reaction of the patient, or of later complication, without mention of misadventure at the time of the procedure

== ENCOUNTER 2020-06-27 14:15 | Outpatient (CLI) | payer BC, MEDICARE ==
[2020-06-27] MEDS ORDERED: LIDOCAINE (4%) 40 MG/ML TOPICAL SOLN 50 ML BOTTLE TP ONE (14:36)
== END 2020-06-27 14:16 | disposition home or self-care (01) ==
LOC: WOUND 14:15
PROVIDERS: ATTEND Surgery
DX: T87.89 Other complications of amputation stump (principal); I70.263 Atherosclerosis of native arteries of extremities with gangrene, bilateral legs; L89.153 Pressure ulcer of sacral region, stage 3; L84 Corns and callosities; I11.0 Hypertensive heart disease with heart failure; I50.9 Heart failure, unspecified; I25.2 Old myocardial infarction; I25.10 Atherosclerotic heart disease of native coronary artery without angina pectoris; Z86.73 Personal history of transient ischemic attack (TIA), and cerebral infarction without residual deficits; Z87.891 Personal history of nicotine dependence; Z95.1 Presence of aortocoronary bypass graft; Y83.5 Amputation of limb(s) as the cause of abnormal reaction of the patient, or of later complication, without mention of misadventure at the time of the procedure

== ENCOUNTER 2020-07-25 11:12 | Outpatient (CLI) | payer BC, MEDICAID ==
[2020-07-25] MEDS ORDERED: LIDOCAINE (4%) 40 MG/ML TOPICAL SOLN 50 ML BOTTLE TP ONE (11:48)
== END 2020-07-25 11:13 | disposition home or self-care (01) ==
LOC: WOUND 11:12
PROVIDERS: ATTEND Surgery
DX: T87.89 Other complications of amputation stump (principal); L89.153 Pressure ulcer of sacral region, stage 3; I70.263 Atherosclerosis of native arteries of extremities with gangrene, bilateral legs; L84 Corns and callosities; I11.0 Hypertensive heart disease with heart failure; I50.9 Heart failure, unspecified; I25.2 Old myocardial infarction; I25.10 Atherosclerotic heart disease of native coronary artery without angina pectoris; Z86.73 Personal history of transient ischemic attack (TIA), and cerebral infarction without residual deficits; Z87.891 Personal history of nicotine dependence; Z95.1 Presence of aortocoronary bypass graft; Y83.5 Amputation of limb(s) as the cause of abnormal reaction of the patient, or of later complication, without mention of misadventure at the time of the procedure

== ENCOUNTER 2020-08-08 09:25 | Outpatient (CLI) | payer BC, MEDICARE ==
[2020-08-08] MEDS ORDERED: LIDOCAINE (4%) 40 MG/ML TOPICAL SOLN 50 ML BOTTLE TP ONE (10:18)
== END 2020-08-08 09:26 | disposition home or self-care (01) ==
LOC: WOUND 09:25
PROVIDERS: ATTEND Surgery
DX: T87.89 Other complications of amputation stump (principal); E11.622 Type 2 diabetes mellitus with other skin ulcer; L89.153 Pressure ulcer of sacral region, stage 3; L98.495 Non-pressure chronic ulcer of skin of other sites with muscle involvement without evidence of necrosis; I70.263 Atherosclerosis of native arteries of extremities with gangrene, bilateral legs; E11.52 Type 2 diabetes mellitus with diabetic peripheral angiopathy with gangrene; E11.22 Type 2 diabetes mellitus with diabetic chronic kidney disease; I13.0 Hypertensive heart and chronic kidney disease with heart failure and stage 1 through stage 4 chronic kidney disease, or unspecified chronic kidney disease; I50.9 Heart failure, unspecified; N18.9 Chronic kidney disease, unspecified; I25.2 Old myocardial infarction; L84 Corns and callosities; I25.10 Atherosclerotic heart disease of native coronary artery without angina pectoris; Z86.73 Personal history of transient ischemic attack (TIA), and cerebral infarction without residual deficits; Z87.891 Personal history of nicotine dependence; Z79.82 Long term (current) use of aspirin; Z79.4 Long term (current) use of insulin; Z79.01 Long term (current) use of anticoagulants; Z95.0 Presence of cardiac pacemaker; Z95.1 Presence of aortocoronary bypass graft; Y83.5 Amputation of limb(s) as the cause of abnormal reaction of the patient, or of later complication, without mention of misadventure at the time of the procedure

== ENCOUNTER 2020-08-15 09:19 | Outpatient (CLI) | payer MEDICARE ==
[2020-08-15] MEDS ORDERED: LIDOCAINE (4%) 40 MG/ML TOPICAL SOLN 50 ML BOTTLE TP ONE (10:00)
== END 2020-08-15 09:20 | disposition home or self-care (01) ==
LOC: WOUND 09:19
PROVIDERS: ATTEND Surgery
DX: T87.89 Other complications of amputation stump (principal); E11.621 Type 2 diabetes mellitus with foot ulcer; I70.262 Atherosclerosis of native arteries of extremities with gangrene, left leg; L97.524 Non-pressure chronic ulcer of other part of left foot with necrosis of bone; E11.52 Type 2 diabetes mellitus with diabetic peripheral angiopathy with gangrene; E11.22 Type 2 diabetes mellitus with diabetic chronic kidney disease; I13.0 Hypertensive heart and chronic kidney disease with heart failure and stage 1 through stage 4 chronic kidney disease, or unspecified chronic kidney disease; I50.9 Heart failure, unspecified; N18.9 Chronic kidney disease, unspecified; I25.2 Old myocardial infarction; I25.10 Atherosclerotic heart disease of native coronary artery without angina pectoris; Z86.73 Personal history of transient ischemic attack (TIA), and cerebral infarction without residual deficits; Z87.891 Personal history of nicotine dependence; Z79.82 Long term (current) use of aspirin; Z79.4 Long term (current) use of insulin; Z79.01 Long term (current) use of anticoagulants; Z95.0 Presence of cardiac pacemaker; Z95.1 Presence of aortocoronary bypass graft; Y83.5 Amputation of limb(s) as the cause of abnormal reaction of the patient, or of later complication, without mention of misadventure at the time of the procedure

== ENCOUNTER 2020-08-29 08:34 | Outpatient (CLI) | payer BC, MEDICARE | END 2020-08-29 08:35 | disposition home or self-care (01) | LOC: WOUND 08:34 | PROVIDERS: ATTEND Surgery | DX: T87.89 Other complications of amputation stump (principal); E11.621 Type 2 diabetes mellitus with foot ulcer; I70.262 Atherosclerosis of native arteries of extremities with gangrene, left leg; L97.524 Non-pressure chronic ulcer of other part of left foot with necrosis of bone; E11.52 Type 2 diabetes mellitus with diabetic peripheral angiopathy with gangrene; E11.22 Type 2 diabetes mellitus with diabetic chronic kidney disease; I13.0 Hypertensive heart and chronic kidney disease with heart failure and stage 1 through stage 4 chronic kidney disease, or unspecified chronic kidney disease; I50.9 Heart failure, unspecified; N18.9 Chronic kidney disease, unspecified; I25.2 Old myocardial infarction; I25.10 Atherosclerotic heart disease of native coronary artery without angina pectoris; Z86.73 Personal history of transient ischemic attack (TIA), and cerebral infarction without residual deficits; Z87.891 Personal history of nicotine dependence; Z79.82 Long term (current) use of aspirin; Z79.4 Long term (current) use of insulin; Z79.01 Long term (current) use of anticoagulants; Z95.0 Presence of cardiac pacemaker; Z95.1 Presence of aortocoronary bypass graft; Y83.5 Amputation of limb(s) as the cause of abnormal reaction of the patient, or of later complication, without mention of misadventure at the time of the procedure ==

== ENCOUNTER 2020-09-05 09:42 | Outpatient (CLI) | payer BC ==
[2020-09-05] MEDS ORDERED: LIDOCAINE (4%) 40 MG/ML TOPICAL SOLN 50 ML BOTTLE TP ONE (09:58)
== END 2020-09-05 09:43 | disposition home or self-care (01) ==
LOC: WOUND 09:42
PROVIDERS: ATTEND Surgery
DX: T87.89 Other complications of amputation stump (principal); E11.621 Type 2 diabetes mellitus with foot ulcer; I70.262 Atherosclerosis of native arteries of extremities with gangrene, left leg; L97.524 Non-pressure chronic ulcer of other part of left foot with necrosis of bone; E11.52 Type 2 diabetes mellitus with diabetic peripheral angiopathy with gangrene; E11.22 Type 2 diabetes mellitus with diabetic chronic kidney disease; I13.0 Hypertensive heart and chronic kidney disease with heart failure and stage 1 through stage 4 chronic kidney disease, or unspecified chronic kidney disease; I50.9 Heart failure, unspecified; N18.9 Chronic kidney disease, unspecified; I25.2 Old myocardial infarction; I25.10 Atherosclerotic heart disease of native coronary artery without angina pectoris; Z86.73 Personal history of transient ischemic attack (TIA), and cerebral infarction without residual deficits; Z87.891 Personal history of nicotine dependence; Z79.82 Long term (current) use of aspirin; Z79.4 Long term (current) use of insulin; Z79.01 Long term (current) use of anticoagulants; Z95.0 Presence of cardiac pacemaker; Z95.1 Presence of aortocoronary bypass graft; Y83.5 Amputation of limb(s) as the cause of abnormal reaction of the patient, or of later complication, without mention of misadventure at the time of the procedure

== ENCOUNTER 2020-09-07 11:15 | Outpatient (CLI) | payer BC ==
--- NOTE | 2020-09-07 12:29 | Cat Scan Report ---
CT LEFT LOWER EXTREMITY WITHOUT CONTRAST INDICATION : CHRONIC ULCER OF OTHER PART OF THE LEFT FOOT. TECHNIQUE: Axial imaging performed through the distal left lower extremity without the use of contra st. All CT scans at this location are performed using CT dose reduction for ALARA by means of automa priscilla exposure control. COMPARISON: None FINDINGS: The distal foot has been amputated near the base of the metatarsals. There is moderate to s evere osteopenia throughout the visualized distal left lower extremity. There is soft tissue ulcerati on with packing gauze adjacent to the remaining distal first and second metatarsals. No convincing pe riostitis or bony destruction is detected to suggest osteomyelitis. No fluid collection or soft tissu e gas is identified. IMPRESSION: Amputation of the distal left foot as described with soft tissue ulceration adjacent to t he remaining first and second metatarsals but no convincing evidence for osteomyelitis. If further ev aluation is needed MRI preferably with IV contrast or triple phase bone scan could be obtained. Signer Name: Derik Lizarraga Jr, MD Signed: 09/07/2020 12:25 PM Workstation Name: [id number]
== END 2020-09-07 11:16 | disposition home or self-care (01) ==
LOC: CT 11:15
PROVIDERS: ATTEND Surgery
DX: L97.524 Non-pressure chronic ulcer of other part of left foot with necrosis of bone (principal); M85.862 Other specified disorders of bone density and structure, left lower leg

== ENCOUNTER 2020-09-12 08:11 | Outpatient (CLI) | payer BC, MEDICAID ==
[2020-09-12] MEDS ORDERED: LIDOCAINE (4%) 40 MG/ML TOPICAL SOLN 50 ML BOTTLE TP SCH (08:30)
== END 2020-09-12 08:12 | disposition home or self-care (01) ==
LOC: WOUND 08:11
PROVIDERS: ATTEND Surgery
DX: T87.89 Other complications of amputation stump (principal); E11.621 Type 2 diabetes mellitus with foot ulcer; I70.262 Atherosclerosis of native arteries of extremities with gangrene, left leg; L97.524 Non-pressure chronic ulcer of other part of left foot with necrosis of bone; E11.52 Type 2 diabetes mellitus with diabetic peripheral angiopathy with gangrene; E11.22 Type 2 diabetes mellitus with diabetic chronic kidney disease; I13.0 Hypertensive heart and chronic kidney disease with heart failure and stage 1 through stage 4 chronic kidney disease, or unspecified chronic kidney disease; I50.9 Heart failure, unspecified; N18.9 Chronic kidney disease, unspecified; I25.2 Old myocardial infarction; I25.10 Atherosclerotic heart disease of native coronary artery without angina pectoris; Z86.73 Personal history of transient ischemic attack (TIA), and cerebral infarction without residual deficits; Z87.891 Personal history of nicotine dependence; Z79.82 Long term (current) use of aspirin; Z79.4 Long term (current) use of insulin; Z79.01 Long term (current) use of anticoagulants; Z95.0 Presence of cardiac pacemaker; Z95.1 Presence of aortocoronary bypass graft; Y83.5 Amputation of limb(s) as the cause of abnormal reaction of the patient, or of later complication, without mention of misadventure at the time of the procedure

== ENCOUNTER 2020-09-26 08:38 | Outpatient (CLI) | payer BC, MEDICAID ==
[2020-09-26] MEDS ORDERED: LIDOCAINE (4%) 40 MG/ML TOPICAL SOLN 50 ML BOTTLE TP ONE (14:04)
== END 2020-09-26 08:39 | disposition home or self-care (01) ==
LOC: WOUND 08:38
PROVIDERS: ATTEND Surgery
DX: T87.89 Other complications of amputation stump (principal); E11.621 Type 2 diabetes mellitus with foot ulcer; I70.262 Atherosclerosis of native arteries of extremities with gangrene, left leg; L97.524 Non-pressure chronic ulcer of other part of left foot with necrosis of bone; E11.52 Type 2 diabetes mellitus with diabetic peripheral angiopathy with gangrene; E11.22 Type 2 diabetes mellitus with diabetic chronic kidney disease; I13.0 Hypertensive heart and chronic kidney disease with heart failure and stage 1 through stage 4 chronic kidney disease, or unspecified chronic kidney disease; I50.9 Heart failure, unspecified; N18.9 Chronic kidney disease, unspecified; I25.2 Old myocardial infarction; I25.10 Atherosclerotic heart disease of native coronary artery without angina pectoris; Z86.73 Personal history of transient ischemic attack (TIA), and cerebral infarction without residual deficits; Z87.891 Personal history of nicotine dependence; Z79.82 Long term (current) use of aspirin; Z79.4 Long term (current) use of insulin; Z79.01 Long term (current) use of anticoagulants; Z95.0 Presence of cardiac pacemaker; Z95.1 Presence of aortocoronary bypass graft; Y83.5 Amputation of limb(s) as the cause of abnormal reaction of the patient, or of later complication, without mention of misadventure at the time of the procedure

== ENCOUNTER 2020-10-03 08:49 | Outpatient (CLI) | payer BC, MEDICAID ==
[2020-10-03] MEDS ORDERED: LIDOCAINE (4%) 40 MG/ML TOPICAL SOLN 50 ML BOTTLE TP ONE (08:58)
== END 2020-10-03 08:50 | disposition home or self-care (01) ==
LOC: WOUND 08:49
PROVIDERS: ATTEND Surgery
DX: E11.621 Type 2 diabetes mellitus with foot ulcer (principal); I70.262 Atherosclerosis of native arteries of extremities with gangrene, left leg; L97.524 Non-pressure chronic ulcer of other part of left foot with necrosis of bone; T87.89 Other complications of amputation stump; E11.22 Type 2 diabetes mellitus with diabetic chronic kidney disease; I13.0 Hypertensive heart and chronic kidney disease with heart failure and stage 1 through stage 4 chronic kidney disease, or unspecified chronic kidney disease; I50.9 Heart failure, unspecified; N18.9 Chronic kidney disease, unspecified; I25.2 Old myocardial infarction; I25.10 Atherosclerotic heart disease of native coronary artery without angina pectoris; Z86.73 Personal history of transient ischemic attack (TIA), and cerebral infarction without residual deficits; Z87.891 Personal history of nicotine dependence; Z79.82 Long term (current) use of aspirin; Z79.4 Long term (current) use of insulin; Z79.01 Long term (current) use of anticoagulants; Z95.0 Presence of cardiac pacemaker; Z95.1 Presence of aortocoronary bypass graft; Y83.5 Amputation of limb(s) as the cause of abnormal reaction of the patient, or of later complication, without mention of misadventure at the time of the procedure

== ENCOUNTER 2020-10-08 09:00 | Outpatient (CLI) | payer BC, MEDICAID ==
--- NOTE | 2020-10-08 14:36 | Nuclear Medicine Report ---
THREE PHASE BONE SCAN, LEFT HISTORY: Evaluate for osteomyelitis or cellulitis, diabetes, partial left foot amputation COMPARISON: CT left lower extremity 09/08/2019 TECHNIQUE: Following administration of Tc-99m-MDP, sequential immediate dynamic and early static imag es of the left foot were acquired followed by anterior and posterior delayed images several hours lat er. RADIOPHARMACEUTICAL: 26.5 mCi Tc-99m-MDP. FINDINGS: FLOW AND BLOOD POOL IMAGING: There is increased radiotracer accumulation in the distal left foot on the blood flow and blood flow images. DELAYED IMAGING: There is focal increased uptake in the distal left foot in the vicinity of the first metatarsal. Additional Findings: None. IMPRESSION: Findings consistent with osteomyelitis of the distal left foot as described. Signer Name: Derik Lizarraga Jr, MD Signed: 10/08/2020 2:31 PM Workstation Name: [id number]
== END 2020-10-08 09:01 | disposition home or self-care (01) ==
LOC: NM 09:00
PROVIDERS: ATTEND Surgery
DX: E11.9 Type 2 diabetes mellitus without complications (principal); Z89.432 Acquired absence of left foot
CPT/HCPCS: 78315; A9503

== ENCOUNTER 2020-10-10 09:14 | Outpatient (CLI) | payer BC, MEDICAID ==
[2020-10-10] MEDS ORDERED: LIDOCAINE (4%) 40 MG/ML TOPICAL SOLN 50 ML BOTTLE TP ONE (09:30)
== END 2020-10-10 09:15 | disposition home or self-care (01) ==
LOC: WOUND 09:14
PROVIDERS: ATTEND Surgery
DX: E11.621 Type 2 diabetes mellitus with foot ulcer (principal); I70.262 Atherosclerosis of native arteries of extremities with gangrene, left leg; L97.524 Non-pressure chronic ulcer of other part of left foot with necrosis of bone; T87.89 Other complications of amputation stump; E11.22 Type 2 diabetes mellitus with diabetic chronic kidney disease; I13.0 Hypertensive heart and chronic kidney disease with heart failure and stage 1 through stage 4 chronic kidney disease, or unspecified chronic kidney disease; I50.9 Heart failure, unspecified; N18.9 Chronic kidney disease, unspecified; I25.2 Old myocardial infarction; I25.10 Atherosclerotic heart disease of native coronary artery without angina pectoris; Z86.73 Personal history of transient ischemic attack (TIA), and cerebral infarction without residual deficits; Z87.891 Personal history of nicotine dependence; Z79.82 Long term (current) use of aspirin; Z79.4 Long term (current) use of insulin; Z79.01 Long term (current) use of anticoagulants; Z95.0 Presence of cardiac pacemaker; Z95.1 Presence of aortocoronary bypass graft; Y83.5 Amputation of limb(s) as the cause of abnormal reaction of the patient, or of later complication, without mention of misadventure at the time of the procedure

== ENCOUNTER 2020-10-24 09:24 | Outpatient (CLI) | payer BC, MEDICAID ==
[2020-10-24] MEDS ORDERED: LIDOCAINE (4%) 40 MG/ML TOPICAL SOLN 50 ML BOTTLE TP ONE (09:45)
== END 2020-10-24 09:25 | disposition home or self-care (01) ==
LOC: WOUND 09:24
PROVIDERS: ATTEND Surgery
DX: T87.89 Other complications of amputation stump (principal); E11.621 Type 2 diabetes mellitus with foot ulcer; I70.262 Atherosclerosis of native arteries of extremities with gangrene, left leg; L97.524 Non-pressure chronic ulcer of other part of left foot with necrosis of bone; E11.22 Type 2 diabetes mellitus with diabetic chronic kidney disease; I13.0 Hypertensive heart and chronic kidney disease with heart failure and stage 1 through stage 4 chronic kidney disease, or unspecified chronic kidney disease; I50.9 Heart failure, unspecified; N18.9 Chronic kidney disease, unspecified; I25.2 Old myocardial infarction; I25.10 Atherosclerotic heart disease of native coronary artery without angina pectoris; Z86.73 Personal history of transient ischemic attack (TIA), and cerebral infarction without residual deficits; Z87.891 Personal history of nicotine dependence; Z79.82 Long term (current) use of aspirin; Z79.4 Long term (current) use of insulin; Z79.01 Long term (current) use of anticoagulants; Z95.0 Presence of cardiac pacemaker; Z95.1 Presence of aortocoronary bypass graft; Y83.5 Amputation of limb(s) as the cause of abnormal reaction of the patient, or of later complication, without mention of misadventure at the time of the procedure

== ENCOUNTER 2020-11-14 08:31 | Outpatient (CLI) | payer BC, MEDICAID ==
[2020-11-14] MEDS ORDERED: LIDOCAINE (4%) 40 MG/ML TOPICAL SOLN 50 ML BOTTLE TP ONE (08:52)
== END 2020-11-14 08:32 | disposition home or self-care (01) ==
LOC: WOUND 08:31
PROVIDERS: ATTEND Surgery
DX: E11.69 Type 2 diabetes mellitus with other specified complication (principal); M86.672 Other chronic osteomyelitis, left ankle and foot; T87.89 Other complications of amputation stump; E11.621 Type 2 diabetes mellitus with foot ulcer; I70.262 Atherosclerosis of native arteries of extremities with gangrene, left leg; L97.524 Non-pressure chronic ulcer of other part of left foot with necrosis of bone; E11.22 Type 2 diabetes mellitus with diabetic chronic kidney disease; I13.0 Hypertensive heart and chronic kidney disease with heart failure and stage 1 through stage 4 chronic kidney disease, or unspecified chronic kidney disease; I50.9 Heart failure, unspecified; N18.9 Chronic kidney disease, unspecified; I25.2 Old myocardial infarction; I25.10 Atherosclerotic heart disease of native coronary artery without angina pectoris; Z86.73 Personal history of transient ischemic attack (TIA), and cerebral infarction without residual deficits; Z87.891 Personal history of nicotine dependence; Z79.82 Long term (current) use of aspirin; Z79.4 Long term (current) use of insulin; Z79.01 Long term (current) use of anticoagulants; Z95.0 Presence of cardiac pacemaker; Z95.1 Presence of aortocoronary bypass graft; Y83.5 Amputation of limb(s) as the cause of abnormal reaction of the patient, or of later complication, without mention of misadventure at the time of the procedure
CPT/HCPCS: 11043; 82962; G0277; 99183

== ENCOUNTER 2020-11-15 08:10 | Outpatient (CLI) | payer BC, MEDICAID | END 2020-11-15 08:11 | disposition home or self-care (01) | LOC: WOUND 08:10 | PROVIDERS: ATTEND Internal Medicine | DX: E11.69 Type 2 diabetes mellitus with other specified complication (principal); M86.672 Other chronic osteomyelitis, left ankle and foot; T87.89 Other complications of amputation stump; E11.621 Type 2 diabetes mellitus with foot ulcer; I70.262 Atherosclerosis of native arteries of extremities with gangrene, left leg; L97.524 Non-pressure chronic ulcer of other part of left foot with necrosis of bone; E11.22 Type 2 diabetes mellitus with diabetic chronic kidney disease; I13.0 Hypertensive heart and chronic kidney disease with heart failure and stage 1 through stage 4 chronic kidney disease, or unspecified chronic kidney disease; I50.9 Heart failure, unspecified; N18.9 Chronic kidney disease, unspecified; I25.2 Old myocardial infarction; I25.10 Atherosclerotic heart disease of native coronary artery without angina pectoris; Z86.73 Personal history of transient ischemic attack (TIA), and cerebral infarction without residual deficits; Z87.891 Personal history of nicotine dependence; Z79.82 Long term (current) use of aspirin; Z79.4 Long term (current) use of insulin; Z79.01 Long term (current) use of anticoagulants; Z95.0 Presence of cardiac pacemaker; Z95.1 Presence of aortocoronary bypass graft; Y83.5 Amputation of limb(s) as the cause of abnormal reaction of the patient, or of later complication, without mention of misadventure at the time of the procedure | CPT/HCPCS: 82962; G0277; 99183 ==

== ENCOUNTER 2020-11-16 08:16 | Outpatient (CLI) | payer BC, MEDICAID | END 2020-11-16 08:17 | disposition home or self-care (01) | LOC: WOUND 08:16 | PROVIDERS: ATTEND Internal Medicine | DX: E11.69 Type 2 diabetes mellitus with other specified complication (principal); M86.672 Other chronic osteomyelitis, left ankle and foot; T87.89 Other complications of amputation stump; E11.621 Type 2 diabetes mellitus with foot ulcer; I70.262 Atherosclerosis of native arteries of extremities with gangrene, left leg; L89.626 Pressure-induced deep tissue damage of left heel; L97.421 Non-pressure chronic ulcer of left heel and midfoot limited to breakdown of skin; L97.411 Non-pressure chronic ulcer of right heel and midfoot limited to breakdown of skin; L97.524 Non-pressure chronic ulcer of other part of left foot with necrosis of bone; L97.511 Non-pressure chronic ulcer of other part of right foot limited to breakdown of skin; E11.52 Type 2 diabetes mellitus with diabetic peripheral angiopathy with gangrene; E11.22 Type 2 diabetes mellitus with diabetic chronic kidney disease; I13.0 Hypertensive heart and chronic kidney disease with heart failure and stage 1 through stage 4 chronic kidney disease, or unspecified chronic kidney disease; I50.9 Heart failure, unspecified; N18.9 Chronic kidney disease, unspecified; I25.2 Old myocardial infarction; I25.10 Atherosclerotic heart disease of native coronary artery without angina pectoris; Z86.73 Personal history of transient ischemic attack (TIA), and cerebral infarction without residual deficits; Z87.891 Personal history of nicotine dependence; Z79.82 Long term (current) use of aspirin; Z79.4 Long term (current) use of insulin; Z79.01 Long term (current) use of anticoagulants; Z95.0 Presence of cardiac pacemaker; Z95.1 Presence of aortocoronary bypass graft; Y83.5 Amputation of limb(s) as the cause of abnormal reaction of the patient, or of later complication, without mention of misadventure at the time of the procedure | CPT/HCPCS: 82962; G0277; 99183 ==

== ENCOUNTER 2020-11-20 08:00 | Outpatient (CLI) | payer BC, MEDICAID | END 2020-11-20 08:01 | disposition home or self-care (01) | LOC: WOUND 08:00 | PROVIDERS: ATTEND Internal Medicine | DX: E11.69 Type 2 diabetes mellitus with other specified complication (principal); M86.672 Other chronic osteomyelitis, left ankle and foot; T87.89 Other complications of amputation stump; E11.621 Type 2 diabetes mellitus with foot ulcer; I70.262 Atherosclerosis of native arteries of extremities with gangrene, left leg; L89.626 Pressure-induced deep tissue damage of left heel; L97.421 Non-pressure chronic ulcer of left heel and midfoot limited to breakdown of skin; L97.411 Non-pressure chronic ulcer of right heel and midfoot limited to breakdown of skin; L97.524 Non-pressure chronic ulcer of other part of left foot with necrosis of bone; L97.511 Non-pressure chronic ulcer of other part of right foot limited to breakdown of skin; E11.52 Type 2 diabetes mellitus with diabetic peripheral angiopathy with gangrene; E11.22 Type 2 diabetes mellitus with diabetic chronic kidney disease; I13.0 Hypertensive heart and chronic kidney disease with heart failure and stage 1 through stage 4 chronic kidney disease, or unspecified chronic kidney disease; I50.9 Heart failure, unspecified; N18.9 Chronic kidney disease, unspecified; I25.2 Old myocardial infarction; I25.10 Atherosclerotic heart disease of native coronary artery without angina pectoris; Z86.73 Personal history of transient ischemic attack (TIA), and cerebral infarction without residual deficits; Z87.891 Personal history of nicotine dependence; Z79.82 Long term (current) use of aspirin; Z79.4 Long term (current) use of insulin; Z79.01 Long term (current) use of anticoagulants; Z95.0 Presence of cardiac pacemaker; Z95.1 Presence of aortocoronary bypass graft; Y83.5 Amputation of limb(s) as the cause of abnormal reaction of the patient, or of later complication, without mention of misadventure at the time of the procedure | CPT/HCPCS: 82962; G0277; 99183 ==

== ENCOUNTER 2020-11-21 08:00 | Outpatient (CLI) | payer BC, MEDICAID ==
[2020-11-21] MEDS ORDERED: LIDOCAINE (4%) 40 MG/ML TOPICAL SOLN 50 ML BOTTLE TP ONE (10:44)
== END 2020-11-21 23:59 | disposition home or self-care (01) ==
LOC: WOUND 08:00
PROVIDERS: ATTEND Surgery
DX: E11.69 Type 2 diabetes mellitus with other specified complication (principal); M86.672 Other chronic osteomyelitis, left ankle and foot; T87.89 Other complications of amputation stump; E11.621 Type 2 diabetes mellitus with foot ulcer; L97.524 Non-pressure chronic ulcer of other part of left foot with necrosis of bone; I70.262 Atherosclerosis of native arteries of extremities with gangrene, left leg; L89.626 Pressure-induced deep tissue damage of left heel; L97.421 Non-pressure chronic ulcer of left heel and midfoot limited to breakdown of skin; L97.411 Non-pressure chronic ulcer of right heel and midfoot limited to breakdown of skin; L97.511 Non-pressure chronic ulcer of other part of right foot limited to breakdown of skin; E11.22 Type 2 diabetes mellitus with diabetic chronic kidney disease; I13.0 Hypertensive heart and chronic kidney disease with heart failure and stage 1 through stage 4 chronic kidney disease, or unspecified chronic kidney disease; N18.9 Chronic kidney disease, unspecified; I50.9 Heart failure, unspecified; I25.2 Old myocardial infarction; I25.10 Atherosclerotic heart disease of native coronary artery without angina pectoris; E11.52 Type 2 diabetes mellitus with diabetic peripheral angiopathy with gangrene; Z86.73 Personal history of transient ischemic attack (TIA), and cerebral infarction without residual deficits; Z87.891 Personal history of nicotine dependence; Z79.82 Long term (current) use of aspirin; Z79.4 Long term (current) use of insulin; Z79.01 Long term (current) use of anticoagulants; Z95.0 Presence of cardiac pacemaker; Z95.1 Presence of aortocoronary bypass graft; Y83.5 Amputation of limb(s) as the cause of abnormal reaction of the patient, or of later complication, without mention of misadventure at the time of the procedure
CPT/HCPCS: 11043; 82962; G0277; 99183

== ENCOUNTER 2020-11-23 08:00 | Outpatient (CLI) | payer BC, MEDICAID | END 2020-11-23 23:59 | disposition home or self-care (01) | LOC: WOUND 08:00 | PROVIDERS: ATTEND Internal Medicine | DX: E11.69 Type 2 diabetes mellitus with other specified complication (principal); M86.372 Chronic multifocal osteomyelitis, left ankle and foot; T87.89 Other complications of amputation stump; E11.621 Type 2 diabetes mellitus with foot ulcer; I70.262 Atherosclerosis of native arteries of extremities with gangrene, left leg; L89.626 Pressure-induced deep tissue damage of left heel; L97.524 Non-pressure chronic ulcer of other part of left foot with necrosis of bone; L97.421 Non-pressure chronic ulcer of left heel and midfoot limited to breakdown of skin; L97.511 Non-pressure chronic ulcer of other part of right foot limited to breakdown of skin; E11.52 Type 2 diabetes mellitus with diabetic peripheral angiopathy with gangrene; E11.22 Type 2 diabetes mellitus with diabetic chronic kidney disease; I13.0 Hypertensive heart and chronic kidney disease with heart failure and stage 1 through stage 4 chronic kidney disease, or unspecified chronic kidney disease; I50.9 Heart failure, unspecified; N18.9 Chronic kidney disease, unspecified; I25.2 Old myocardial infarction; I25.10 Atherosclerotic heart disease of native coronary artery without angina pectoris; Z86.73 Personal history of transient ischemic attack (TIA), and cerebral infarction without residual deficits; Z87.891 Personal history of nicotine dependence; Z79.82 Long term (current) use of aspirin; Z79.4 Long term (current) use of insulin; Z79.01 Long term (current) use of anticoagulants; Z95.0 Presence of cardiac pacemaker; Z95.1 Presence of aortocoronary bypass graft; Y83.5 Amputation of limb(s) as the cause of abnormal reaction of the patient, or of later complication, without mention of misadventure at the time of the procedure | CPT/HCPCS: 82962; G0277; 99183 ==

== ENCOUNTER 2020-11-26 08:25 | Outpatient (CLI) | payer BC, MEDICAID | END 2020-11-26 08:26 | disposition home or self-care (01) | LOC: WOUND 08:25 | PROVIDERS: ATTEND Surgery | DX: E11.69 Type 2 diabetes mellitus with other specified complication (principal); M86.672 Other chronic osteomyelitis, left ankle and foot; T87.89 Other complications of amputation stump; E11.621 Type 2 diabetes mellitus with foot ulcer; I70.262 Atherosclerosis of native arteries of extremities with gangrene, left leg; L89.626 Pressure-induced deep tissue damage of left heel; L97.421 Non-pressure chronic ulcer of left heel and midfoot limited to breakdown of skin; L97.411 Non-pressure chronic ulcer of right heel and midfoot limited to breakdown of skin; L97.524 Non-pressure chronic ulcer of other part of left foot with necrosis of bone; L97.511 Non-pressure chronic ulcer of other part of right foot limited to breakdown of skin; E11.52 Type 2 diabetes mellitus with diabetic peripheral angiopathy with gangrene; E11.22 Type 2 diabetes mellitus with diabetic chronic kidney disease; I13.0 Hypertensive heart and chronic kidney disease with heart failure and stage 1 through stage 4 chronic kidney disease, or unspecified chronic kidney disease; I50.9 Heart failure, unspecified; N18.9 Chronic kidney disease, unspecified; I25.2 Old myocardial infarction; I25.10 Atherosclerotic heart disease of native coronary artery without angina pectoris; Z86.73 Personal history of transient ischemic attack (TIA), and cerebral infarction without residual deficits; Z87.891 Personal history of nicotine dependence; Z79.82 Long term (current) use of aspirin; Z79.4 Long term (current) use of insulin; Z79.01 Long term (current) use of anticoagulants; Z95.0 Presence of cardiac pacemaker; Z95.1 Presence of aortocoronary bypass graft; Y83.5 Amputation of limb(s) as the cause of abnormal reaction of the patient, or of later complication, without mention of misadventure at the time of the procedure | CPT/HCPCS: 82962; G0277; 99183 ==

== ENCOUNTER 2020-11-27 08:14 | Outpatient (CLI) | payer BC, MEDICAID | END 2020-11-27 08:15 | disposition home or self-care (01) | LOC: WOUND 08:14 | PROVIDERS: ATTEND Internal Medicine | DX: M86.672 Other chronic osteomyelitis, left ankle and foot (principal); E11.621 Type 2 diabetes mellitus with foot ulcer; L97.524 Non-pressure chronic ulcer of other part of left foot with necrosis of bone; E11.69 Type 2 diabetes mellitus with other specified complication; T87.89 Other complications of amputation stump; I70.262 Atherosclerosis of native arteries of extremities with gangrene, left leg; L89.626 Pressure-induced deep tissue damage of left heel; L97.421 Non-pressure chronic ulcer of left heel and midfoot limited to breakdown of skin; L97.411 Non-pressure chronic ulcer of right heel and midfoot limited to breakdown of skin; L97.511 Non-pressure chronic ulcer of other part of right foot limited to breakdown of skin; E11.22 Type 2 diabetes mellitus with diabetic chronic kidney disease; I13.0 Hypertensive heart and chronic kidney disease with heart failure and stage 1 through stage 4 chronic kidney disease, or unspecified chronic kidney disease; N18.9 Chronic kidney disease, unspecified; I50.9 Heart failure, unspecified; E11.52 Type 2 diabetes mellitus with diabetic peripheral angiopathy with gangrene; I25.10 Atherosclerotic heart disease of native coronary artery without angina pectoris; I25.2 Old myocardial infarction; Z86.73 Personal history of transient ischemic attack (TIA), and cerebral infarction without residual deficits; Z95.1 Presence of aortocoronary bypass graft; Z87.891 Personal history of nicotine dependence; Z79.82 Long term (current) use of aspirin; Z79.899 Other long term (current) drug therapy; Z79.4 Long term (current) use of insulin; Z79.01 Long term (current) use of anticoagulants; Z95.0 Presence of cardiac pacemaker; Y83.5 Amputation of limb(s) as the cause of abnormal reaction of the patient, or of later complication, without mention of misadventure at the time of the procedure | CPT/HCPCS: 82962; G0277; 99183 ==

== ENCOUNTER 2020-11-28 08:05 | Outpatient (CLI) | payer BC, MEDICAID ==
[2020-11-28] MEDS ORDERED: LIDOCAINE (4%) 40 MG/ML TOPICAL SOLN 50 ML BOTTLE TP SCH (11:30)
== END 2020-11-28 08:06 | disposition home or self-care (01) ==
LOC: WOUND 08:05
PROVIDERS: ATTEND Surgery
DX: E11.69 Type 2 diabetes mellitus with other specified complication (principal); M86.672 Other chronic osteomyelitis, left ankle and foot; T87.89 Other complications of amputation stump; E11.621 Type 2 diabetes mellitus with foot ulcer; L97.524 Non-pressure chronic ulcer of other part of left foot with necrosis of bone; E11.22 Type 2 diabetes mellitus with diabetic chronic kidney disease; I13.0 Hypertensive heart and chronic kidney disease with heart failure and stage 1 through stage 4 chronic kidney disease, or unspecified chronic kidney disease; I50.9 Heart failure, unspecified; N18.9 Chronic kidney disease, unspecified; I25.2 Old myocardial infarction; I25.10 Atherosclerotic heart disease of native coronary artery without angina pectoris; Y83.5 Amputation of limb(s) as the cause of abnormal reaction of the patient, or of later complication, without mention of misadventure at the time of the procedure; Z86.73 Personal history of transient ischemic attack (TIA), and cerebral infarction without residual deficits; Z87.891 Personal history of nicotine dependence; Z79.82 Long term (current) use of aspirin; Z79.2 Long term (current) use of antibiotics; Z79.4 Long term (current) use of insulin; Z95.0 Presence of cardiac pacemaker; Z95.1 Presence of aortocoronary bypass graft
CPT/HCPCS: 11043; 82962; G0277; 99183

== ENCOUNTER 2020-11-29 08:08 | Outpatient (CLI) | payer BC, MEDICAID | END 2020-11-29 08:09 | disposition home or self-care (01) | LOC: WOUND 08:08 | PROVIDERS: ATTEND Internal Medicine | DX: E11.69 Type 2 diabetes mellitus with other specified complication (principal); M86.672 Other chronic osteomyelitis, left ankle and foot; T87.89 Other complications of amputation stump; E11.621 Type 2 diabetes mellitus with foot ulcer; L97.524 Non-pressure chronic ulcer of other part of left foot with necrosis of bone; E11.22 Type 2 diabetes mellitus with diabetic chronic kidney disease; I13.0 Hypertensive heart and chronic kidney disease with heart failure and stage 1 through stage 4 chronic kidney disease, or unspecified chronic kidney disease; I50.9 Heart failure, unspecified; N18.9 Chronic kidney disease, unspecified; I25.2 Old myocardial infarction; I25.10 Atherosclerotic heart disease of native coronary artery without angina pectoris; Z86.73 Personal history of transient ischemic attack (TIA), and cerebral infarction without residual deficits; Z87.891 Personal history of nicotine dependence; Z79.82 Long term (current) use of aspirin; Z79.2 Long term (current) use of antibiotics; Z79.4 Long term (current) use of insulin; Z95.0 Presence of cardiac pacemaker; Z95.1 Presence of aortocoronary bypass graft; Y83.5 Amputation of limb(s) as the cause of abnormal reaction of the patient, or of later complication, without mention of misadventure at the time of the procedure | CPT/HCPCS: 82962; G0277; 99183 ==

== ENCOUNTER 2020-11-30 08:00 | Outpatient (CLI) | payer BC, MEDICAID | END 2020-11-30 23:59 | disposition home or self-care (01) | LOC: WOUND 08:00 | PROVIDERS: ATTEND Internal Medicine | DX: E11.69 Type 2 diabetes mellitus with other specified complication (principal); M86.672 Other chronic osteomyelitis, left ankle and foot; T87.89 Other complications of amputation stump; E11.621 Type 2 diabetes mellitus with foot ulcer; L97.524 Non-pressure chronic ulcer of other part of left foot with necrosis of bone; E11.22 Type 2 diabetes mellitus with diabetic chronic kidney disease; I13.0 Hypertensive heart and chronic kidney disease with heart failure and stage 1 through stage 4 chronic kidney disease, or unspecified chronic kidney disease; I50.9 Heart failure, unspecified; N18.9 Chronic kidney disease, unspecified; I25.2 Old myocardial infarction; I25.10 Atherosclerotic heart disease of native coronary artery without angina pectoris; Z86.73 Personal history of transient ischemic attack (TIA), and cerebral infarction without residual deficits; Z87.891 Personal history of nicotine dependence; Z79.82 Long term (current) use of aspirin; Z79.2 Long term (current) use of antibiotics; Z79.4 Long term (current) use of insulin; Z95.0 Presence of cardiac pacemaker; Z95.1 Presence of aortocoronary bypass graft; Y83.5 Amputation of limb(s) as the cause of abnormal reaction of the patient, or of later complication, without mention of misadventure at the time of the procedure | CPT/HCPCS: 82962; G0277; 99183 ==

== ENCOUNTER 2020-12-03 08:23 | Outpatient (CLI) | payer BC, MEDICAID | END 2020-12-03 08:24 | disposition home or self-care (01) | LOC: WOUND 08:23 | PROVIDERS: ATTEND Internal Medicine | DX: E11.69 Type 2 diabetes mellitus with other specified complication (principal); M86.672 Other chronic osteomyelitis, left ankle and foot; T87.89 Other complications of amputation stump; E11.621 Type 2 diabetes mellitus with foot ulcer; I70.262 Atherosclerosis of native arteries of extremities with gangrene, left leg; L97.524 Non-pressure chronic ulcer of other part of left foot with necrosis of bone; E11.22 Type 2 diabetes mellitus with diabetic chronic kidney disease; I13.0 Hypertensive heart and chronic kidney disease with heart failure and stage 1 through stage 4 chronic kidney disease, or unspecified chronic kidney disease; I50.9 Heart failure, unspecified; N18.9 Chronic kidney disease, unspecified; I25.2 Old myocardial infarction; I25.10 Atherosclerotic heart disease of native coronary artery without angina pectoris; Z86.73 Personal history of transient ischemic attack (TIA), and cerebral infarction without residual deficits; Z87.891 Personal history of nicotine dependence; Z79.82 Long term (current) use of aspirin; Z79.4 Long term (current) use of insulin; Z79.01 Long term (current) use of anticoagulants; Z95.0 Presence of cardiac pacemaker; Z95.1 Presence of aortocoronary bypass graft; Y83.5 Amputation of limb(s) as the cause of abnormal reaction of the patient, or of later complication, without mention of misadventure at the time of the procedure | CPT/HCPCS: 82962; G0277; 99183 ==

== ENCOUNTER 2020-12-04 08:04 | Outpatient (CLI) | payer BC, MEDICAID | END 2020-12-04 08:05 | disposition home or self-care (01) | LOC: WOUND 08:04 | PROVIDERS: ATTEND Internal Medicine | DX: E11.69 Type 2 diabetes mellitus with other specified complication (principal); M86.672 Other chronic osteomyelitis, left ankle and foot; T87.89 Other complications of amputation stump; E11.621 Type 2 diabetes mellitus with foot ulcer; I70.262 Atherosclerosis of native arteries of extremities with gangrene, left leg; L89.626 Pressure-induced deep tissue damage of left heel; L97.421 Non-pressure chronic ulcer of left heel and midfoot limited to breakdown of skin; L97.411 Non-pressure chronic ulcer of right heel and midfoot limited to breakdown of skin; L97.524 Non-pressure chronic ulcer of other part of left foot with necrosis of bone; L97.511 Non-pressure chronic ulcer of other part of right foot limited to breakdown of skin; E11.52 Type 2 diabetes mellitus with diabetic peripheral angiopathy with gangrene; E11.22 Type 2 diabetes mellitus with diabetic chronic kidney disease; I13.0 Hypertensive heart and chronic kidney disease with heart failure and stage 1 through stage 4 chronic kidney disease, or unspecified chronic kidney disease; I50.9 Heart failure, unspecified; N18.9 Chronic kidney disease, unspecified; I25.2 Old myocardial infarction; I25.10 Atherosclerotic heart disease of native coronary artery without angina pectoris; Z86.73 Personal history of transient ischemic attack (TIA), and cerebral infarction without residual deficits; Z87.891 Personal history of nicotine dependence; Z79.82 Long term (current) use of aspirin; Z79.4 Long term (current) use of insulin; Z79.01 Long term (current) use of anticoagulants; Z95.0 Presence of cardiac pacemaker; Z95.1 Presence of aortocoronary bypass graft; Y83.5 Amputation of limb(s) as the cause of abnormal reaction of the patient, or of later complication, without mention of misadventure at the time of the procedure | CPT/HCPCS: 82962; G0277; 99183 ==

== ENCOUNTER 2020-12-05 08:11 | Outpatient (CLI) | payer BC, MEDICAID ==
[2020-12-05] MEDS ORDERED: LIDOCAINE (4%) 40 MG/ML TOPICAL SOLN 50 ML BOTTLE TP ONE (10:51)
== END 2020-12-05 08:12 | disposition home or self-care (01) ==
LOC: WOUND 08:11
PROVIDERS: ATTEND Surgery
DX: E11.69 Type 2 diabetes mellitus with other specified complication (principal); M86.672 Other chronic osteomyelitis, left ankle and foot; T87.89 Other complications of amputation stump; E11.621 Type 2 diabetes mellitus with foot ulcer; I70.262 Atherosclerosis of native arteries of extremities with gangrene, left leg; L97.524 Non-pressure chronic ulcer of other part of left foot with necrosis of bone; E11.51 Type 2 diabetes mellitus with diabetic peripheral angiopathy without gangrene; E11.22 Type 2 diabetes mellitus with diabetic chronic kidney disease; I11.0 Hypertensive heart disease with heart failure; I50.9 Heart failure, unspecified; N18.9 Chronic kidney disease, unspecified; I25.2 Old myocardial infarction; I25.10 Atherosclerotic heart disease of native coronary artery without angina pectoris; Z86.73 Personal history of transient ischemic attack (TIA), and cerebral infarction without residual deficits; Z87.891 Personal history of nicotine dependence; Z79.82 Long term (current) use of aspirin; Z79.4 Long term (current) use of insulin; Z79.01 Long term (current) use of anticoagulants; Z95.0 Presence of cardiac pacemaker; Z95.1 Presence of aortocoronary bypass graft; Y83.5 Amputation of limb(s) as the cause of abnormal reaction of the patient, or of later complication, without mention of misadventure at the time of the procedure
CPT/HCPCS: 11043; 82962; G0277; 99183

== ENCOUNTER 2020-12-06 14:47 | Outpatient (CLI) | payer BC, MEDICAID | END 2020-12-06 14:48 | disposition home or self-care (01) | LOC: WOUND 14:47 | PROVIDERS: ATTEND Surgery | DX: E11.69 Type 2 diabetes mellitus with other specified complication (principal); M86.672 Other chronic osteomyelitis, left ankle and foot; T87.89 Other complications of amputation stump; E11.621 Type 2 diabetes mellitus with foot ulcer; I70.262 Atherosclerosis of native arteries of extremities with gangrene, left leg; L89.626 Pressure-induced deep tissue damage of left heel; L97.421 Non-pressure chronic ulcer of left heel and midfoot limited to breakdown of skin; L97.411 Non-pressure chronic ulcer of right heel and midfoot limited to breakdown of skin; L97.524 Non-pressure chronic ulcer of other part of left foot with necrosis of bone; L97.511 Non-pressure chronic ulcer of other part of right foot limited to breakdown of skin; E11.52 Type 2 diabetes mellitus with diabetic peripheral angiopathy with gangrene; E11.22 Type 2 diabetes mellitus with diabetic chronic kidney disease; I13.0 Hypertensive heart and chronic kidney disease with heart failure and stage 1 through stage 4 chronic kidney disease, or unspecified chronic kidney disease; I50.9 Heart failure, unspecified; N18.9 Chronic kidney disease, unspecified; I25.2 Old myocardial infarction; I25.10 Atherosclerotic heart disease of native coronary artery without angina pectoris; Z86.73 Personal history of transient ischemic attack (TIA), and cerebral infarction without residual deficits; Z87.891 Personal history of nicotine dependence; Z79.82 Long term (current) use of aspirin; Z79.4 Long term (current) use of insulin; Z79.01 Long term (current) use of anticoagulants; Z95.0 Presence of cardiac pacemaker; Z95.1 Presence of aortocoronary bypass graft; Y83.5 Amputation of limb(s) as the cause of abnormal reaction of the patient, or of later complication, without mention of misadventure at the time of the procedure | CPT/HCPCS: 82962; G0277; 99183 ==

== ENCOUNTER 2020-12-07 08:00 | Outpatient (CLI) | payer BC, MEDICAID | END 2020-12-07 23:59 | disposition home or self-care (01) | LOC: WOUND 08:00 | PROVIDERS: ATTEND Internal Medicine | DX: E11.69 Type 2 diabetes mellitus with other specified complication (principal); M86.672 Other chronic osteomyelitis, left ankle and foot; T87.89 Other complications of amputation stump; E11.621 Type 2 diabetes mellitus with foot ulcer; L97.524 Non-pressure chronic ulcer of other part of left foot with necrosis of bone; E11.22 Type 2 diabetes mellitus with diabetic chronic kidney disease; I13.0 Hypertensive heart and chronic kidney disease with heart failure and stage 1 through stage 4 chronic kidney disease, or unspecified chronic kidney disease; I50.9 Heart failure, unspecified; N18.9 Chronic kidney disease, unspecified; I25.2 Old myocardial infarction; I25.10 Atherosclerotic heart disease of native coronary artery without angina pectoris; Z86.73 Personal history of transient ischemic attack (TIA), and cerebral infarction without residual deficits; Z87.891 Personal history of nicotine dependence; Z79.82 Long term (current) use of aspirin; Z79.2 Long term (current) use of antibiotics; Z79.4 Long term (current) use of insulin | CPT/HCPCS: 82962; G0277; 99183 ==

== ENCOUNTER 2020-12-11 08:00 | Outpatient (CLI) | payer BC, MEDICAID | END 2020-12-11 08:01 | disposition home or self-care (01) | LOC: WOUND 08:00 | PROVIDERS: ATTEND Internal Medicine | DX: E11.69 Type 2 diabetes mellitus with other specified complication (principal); M86.672 Other chronic osteomyelitis, left ankle and foot; T87.89 Other complications of amputation stump; E11.621 Type 2 diabetes mellitus with foot ulcer; L97.524 Non-pressure chronic ulcer of other part of left foot with necrosis of bone; E11.22 Type 2 diabetes mellitus with diabetic chronic kidney disease; I13.0 Hypertensive heart and chronic kidney disease with heart failure and stage 1 through stage 4 chronic kidney disease, or unspecified chronic kidney disease; I50.9 Heart failure, unspecified; N18.9 Chronic kidney disease, unspecified; I25.2 Old myocardial infarction; I25.10 Atherosclerotic heart disease of native coronary artery without angina pectoris; Z86.73 Personal history of transient ischemic attack (TIA), and cerebral infarction without residual deficits; Z87.891 Personal history of nicotine dependence; Z79.82 Long term (current) use of aspirin; Z79.2 Long term (current) use of antibiotics; Z79.4 Long term (current) use of insulin; Z95.0 Presence of cardiac pacemaker; Z95.1 Presence of aortocoronary bypass graft; Y83.5 Amputation of limb(s) as the cause of abnormal reaction of the patient, or of later complication, without mention of misadventure at the time of the procedure | CPT/HCPCS: 82962; G0277; 99183 ==

== ENCOUNTER 2020-12-12 11:03 | Outpatient (CLI) | payer BC, MEDICAID ==
[2020-12-12] MEDS ORDERED: LIDOCAINE (4%) 40 MG/ML TOPICAL SOLN 50 ML BOTTLE TP ONE (12:05)
== END 2020-12-12 11:04 | disposition home or self-care (01) ==
LOC: WOUND 11:03
PROVIDERS: ATTEND Surgery
DX: E11.69 Type 2 diabetes mellitus with other specified complication (principal); M86.672 Other chronic osteomyelitis, left ankle and foot; T87.89 Other complications of amputation stump; E11.621 Type 2 diabetes mellitus with foot ulcer; I70.262 Atherosclerosis of native arteries of extremities with gangrene, left leg; L89.626 Pressure-induced deep tissue damage of left heel; L97.421 Non-pressure chronic ulcer of left heel and midfoot limited to breakdown of skin; L97.411 Non-pressure chronic ulcer of right heel and midfoot limited to breakdown of skin; L97.524 Non-pressure chronic ulcer of other part of left foot with necrosis of bone; L97.511 Non-pressure chronic ulcer of other part of right foot limited to breakdown of skin; E11.52 Type 2 diabetes mellitus with diabetic peripheral angiopathy with gangrene; E11.22 Type 2 diabetes mellitus with diabetic chronic kidney disease; I13.0 Hypertensive heart and chronic kidney disease with heart failure and stage 1 through stage 4 chronic kidney disease, or unspecified chronic kidney disease; I50.9 Heart failure, unspecified; N18.9 Chronic kidney disease, unspecified; I25.2 Old myocardial infarction; I25.10 Atherosclerotic heart disease of native coronary artery without angina pectoris; Z86.73 Personal history of transient ischemic attack (TIA), and cerebral infarction without residual deficits; Z87.891 Personal history of nicotine dependence; Z79.82 Long term (current) use of aspirin; Z79.4 Long term (current) use of insulin; Z79.01 Long term (current) use of anticoagulants; Z95.0 Presence of cardiac pacemaker; Z95.1 Presence of aortocoronary bypass graft; Y83.5 Amputation of limb(s) as the cause of abnormal reaction of the patient, or of later complication, without mention of misadventure at the time of the procedure
CPT/HCPCS: 11043; 82962; G0277; 99183

== ENCOUNTER 2020-12-13 08:12 | Outpatient (CLI) | payer BC, MEDICAID | END 2020-12-13 08:13 | disposition home or self-care (01) | LOC: WOUND 08:12 | PROVIDERS: ATTEND Internal Medicine | DX: E11.69 Type 2 diabetes mellitus with other specified complication (principal); M86.672 Other chronic osteomyelitis, left ankle and foot; T87.89 Other complications of amputation stump; E11.621 Type 2 diabetes mellitus with foot ulcer; I70.262 Atherosclerosis of native arteries of extremities with gangrene, left leg; L89.626 Pressure-induced deep tissue damage of left heel; L97.421 Non-pressure chronic ulcer of left heel and midfoot limited to breakdown of skin; L97.411 Non-pressure chronic ulcer of right heel and midfoot limited to breakdown of skin; L97.524 Non-pressure chronic ulcer of other part of left foot with necrosis of bone; L97.511 Non-pressure chronic ulcer of other part of right foot limited to breakdown of skin; E11.52 Type 2 diabetes mellitus with diabetic peripheral angiopathy with gangrene; E11.22 Type 2 diabetes mellitus with diabetic chronic kidney disease; I13.0 Hypertensive heart and chronic kidney disease with heart failure and stage 1 through stage 4 chronic kidney disease, or unspecified chronic kidney disease; I50.9 Heart failure, unspecified; N18.9 Chronic kidney disease, unspecified; I25.2 Old myocardial infarction; I25.10 Atherosclerotic heart disease of native coronary artery without angina pectoris; Z86.73 Personal history of transient ischemic attack (TIA), and cerebral infarction without residual deficits; Z87.891 Personal history of nicotine dependence; Z79.82 Long term (current) use of aspirin; Z79.4 Long term (current) use of insulin; Z79.01 Long term (current) use of anticoagulants; Z95.0 Presence of cardiac pacemaker; Z95.1 Presence of aortocoronary bypass graft; Y83.5 Amputation of limb(s) as the cause of abnormal reaction of the patient, or of later complication, without mention of misadventure at the time of the procedure | CPT/HCPCS: 82962; G0277; 99183 ==

== ENCOUNTER 2020-12-18 08:00 | Outpatient (CLI) | payer BC, MEDICAID | END 2020-12-18 08:01 | disposition home or self-care (01) | LOC: WOUND 08:00 | PROVIDERS: ATTEND Internal Medicine | DX: E11.69 Type 2 diabetes mellitus with other specified complication (principal); M86.372 Chronic multifocal osteomyelitis, left ankle and foot; T87.89 Other complications of amputation stump; E11.621 Type 2 diabetes mellitus with foot ulcer; I70.262 Atherosclerosis of native arteries of extremities with gangrene, left leg; L89.626 Pressure-induced deep tissue damage of left heel; L97.421 Non-pressure chronic ulcer of left heel and midfoot limited to breakdown of skin; L97.411 Non-pressure chronic ulcer of right heel and midfoot limited to breakdown of skin; L97.524 Non-pressure chronic ulcer of other part of left foot with necrosis of bone; L97.511 Non-pressure chronic ulcer of other part of right foot limited to breakdown of skin; E11.52 Type 2 diabetes mellitus with diabetic peripheral angiopathy with gangrene; E11.22 Type 2 diabetes mellitus with diabetic chronic kidney disease; I13.0 Hypertensive heart and chronic kidney disease with heart failure and stage 1 through stage 4 chronic kidney disease, or unspecified chronic kidney disease; I50.9 Heart failure, unspecified; N18.9 Chronic kidney disease, unspecified; I25.2 Old myocardial infarction; I25.10 Atherosclerotic heart disease of native coronary artery without angina pectoris; Z86.73 Personal history of transient ischemic attack (TIA), and cerebral infarction without residual deficits; Z87.891 Personal history of nicotine dependence; Z79.82 Long term (current) use of aspirin; Z79.4 Long term (current) use of insulin; Z79.01 Long term (current) use of anticoagulants; Z95.0 Presence of cardiac pacemaker; Z95.1 Presence of aortocoronary bypass graft; Y83.8 Other surgical procedures as the cause of abnormal reaction of the patient, or of later complication, without mention of misadventure at the time of the procedure | CPT/HCPCS: 82962; G0277; 99183 ==

== ENCOUNTER 2020-12-19 08:21 | Outpatient (CLI) | payer BC, MEDICAID ==
[2020-12-19] MEDS ORDERED: LIDOCAINE (4%) 40 MG/ML TOPICAL SOLN 50 ML BOTTLE TP SCH (08:30)
== END 2020-12-19 08:22 | disposition home or self-care (01) ==
LOC: WOUND 08:21
PROVIDERS: ATTEND Surgery
DX: E11.69 Type 2 diabetes mellitus with other specified complication (principal); M86.372 Chronic multifocal osteomyelitis, left ankle and foot; T87.89 Other complications of amputation stump; E11.621 Type 2 diabetes mellitus with foot ulcer; I70.262 Atherosclerosis of native arteries of extremities with gangrene, left leg; L89.626 Pressure-induced deep tissue damage of left heel; L97.524 Non-pressure chronic ulcer of other part of left foot with necrosis of bone; L97.421 Non-pressure chronic ulcer of left heel and midfoot limited to breakdown of skin; L97.411 Non-pressure chronic ulcer of right heel and midfoot limited to breakdown of skin; L97.511 Non-pressure chronic ulcer of other part of right foot limited to breakdown of skin; E11.52 Type 2 diabetes mellitus with diabetic peripheral angiopathy with gangrene; E11.22 Type 2 diabetes mellitus with diabetic chronic kidney disease; I13.0 Hypertensive heart and chronic kidney disease with heart failure and stage 1 through stage 4 chronic kidney disease, or unspecified chronic kidney disease; I50.9 Heart failure, unspecified; N18.9 Chronic kidney disease, unspecified; I25.2 Old myocardial infarction; I25.10 Atherosclerotic heart disease of native coronary artery without angina pectoris; Z86.73 Personal history of transient ischemic attack (TIA), and cerebral infarction without residual deficits; Z87.891 Personal history of nicotine dependence; Z79.82 Long term (current) use of aspirin; Z79.4 Long term (current) use of insulin; Z79.01 Long term (current) use of anticoagulants; Z95.0 Presence of cardiac pacemaker; Z95.1 Presence of aortocoronary bypass graft; Y83.8 Other surgical procedures as the cause of abnormal reaction of the patient, or of later complication, without mention of misadventure at the time of the procedure
CPT/HCPCS: 11043; 82962; G0277; 99183

== ENCOUNTER 2020-12-20 08:00 | Outpatient (CLI) | payer BC, MEDICAID | END 2020-12-20 23:59 | disposition home or self-care (01) | LOC: WOUND 08:00 | PROVIDERS: ATTEND Internal Medicine | DX: E11.69 Type 2 diabetes mellitus with other specified complication (principal); M86.372 Chronic multifocal osteomyelitis, left ankle and foot; T87.89 Other complications of amputation stump; E11.621 Type 2 diabetes mellitus with foot ulcer; I70.262 Atherosclerosis of native arteries of extremities with gangrene, left leg; L89.626 Pressure-induced deep tissue damage of left heel; L97.524 Non-pressure chronic ulcer of other part of left foot with necrosis of bone; L97.421 Non-pressure chronic ulcer of left heel and midfoot limited to breakdown of skin; L97.411 Non-pressure chronic ulcer of right heel and midfoot limited to breakdown of skin; L97.511 Non-pressure chronic ulcer of other part of right foot limited to breakdown of skin; E11.52 Type 2 diabetes mellitus with diabetic peripheral angiopathy with gangrene; E11.22 Type 2 diabetes mellitus with diabetic chronic kidney disease; I13.0 Hypertensive heart and chronic kidney disease with heart failure and stage 1 through stage 4 chronic kidney disease, or unspecified chronic kidney disease; I50.9 Heart failure, unspecified; N18.9 Chronic kidney disease, unspecified; I25.2 Old myocardial infarction; I25.10 Atherosclerotic heart disease of native coronary artery without angina pectoris; Z86.73 Personal history of transient ischemic attack (TIA), and cerebral infarction without residual deficits; Z87.891 Personal history of nicotine dependence; Z79.82 Long term (current) use of aspirin; Z79.4 Long term (current) use of insulin; Z79.01 Long term (current) use of anticoagulants; Z95.0 Presence of cardiac pacemaker; Z95.1 Presence of aortocoronary bypass graft; Y83.5 Amputation of limb(s) as the cause of abnormal reaction of the patient, or of later complication, without mention of misadventure at the time of the procedure | CPT/HCPCS: 82962; G0277; 99183 ==

== ENCOUNTER 2020-12-25 08:00 | Outpatient (CLI) | payer BC, MEDICAID | END 2020-12-25 08:01 | disposition home or self-care (01) | LOC: WOUND 08:00 | PROVIDERS: ATTEND Surgery | DX: E11.69 Type 2 diabetes mellitus with other specified complication (principal); M86.372 Chronic multifocal osteomyelitis, left ankle and foot; T87.89 Other complications of amputation stump; E11.621 Type 2 diabetes mellitus with foot ulcer; I70.262 Atherosclerosis of native arteries of extremities with gangrene, left leg; L89.626 Pressure-induced deep tissue damage of left heel; L97.524 Non-pressure chronic ulcer of other part of left foot with necrosis of bone; L97.421 Non-pressure chronic ulcer of left heel and midfoot limited to breakdown of skin; L97.411 Non-pressure chronic ulcer of right heel and midfoot limited to breakdown of skin; L97.511 Non-pressure chronic ulcer of other part of right foot limited to breakdown of skin; E11.52 Type 2 diabetes mellitus with diabetic peripheral angiopathy with gangrene; E11.22 Type 2 diabetes mellitus with diabetic chronic kidney disease; I13.0 Hypertensive heart and chronic kidney disease with heart failure and stage 1 through stage 4 chronic kidney disease, or unspecified chronic kidney disease; I50.9 Heart failure, unspecified; N18.9 Chronic kidney disease, unspecified; I25.2 Old myocardial infarction; I25.10 Atherosclerotic heart disease of native coronary artery without angina pectoris; Z86.73 Personal history of transient ischemic attack (TIA), and cerebral infarction without residual deficits; Z87.891 Personal history of nicotine dependence; Z79.82 Long term (current) use of aspirin; Z79.4 Long term (current) use of insulin; Z79.01 Long term (current) use of anticoagulants; Z95.0 Presence of cardiac pacemaker; Z95.1 Presence of aortocoronary bypass graft; Y83.5 Amputation of limb(s) as the cause of abnormal reaction of the patient, or of later complication, without mention of misadventure at the time of the procedure | CPT/HCPCS: 82962; G0277; 99183 ==

== ENCOUNTER 2020-12-26 08:00 | Outpatient (CLI) | payer BC, MEDICAID ==
[2020-12-26] MEDS ORDERED: LIDOCAINE (4%) 40 MG/ML TOPICAL SOLN 50 ML BOTTLE TP ONE (11:04)
== END 2020-12-26 08:01 | disposition home or self-care (01) ==
LOC: WOUND 08:00
PROVIDERS: ATTEND Surgery
DX: E11.69 Type 2 diabetes mellitus with other specified complication (principal); M86.372 Chronic multifocal osteomyelitis, left ankle and foot; T87.89 Other complications of amputation stump; E11.621 Type 2 diabetes mellitus with foot ulcer; I70.262 Atherosclerosis of native arteries of extremities with gangrene, left leg; L89.626 Pressure-induced deep tissue damage of left heel; L97.524 Non-pressure chronic ulcer of other part of left foot with necrosis of bone; L97.421 Non-pressure chronic ulcer of left heel and midfoot limited to breakdown of skin; L97.411 Non-pressure chronic ulcer of right heel and midfoot limited to breakdown of skin; L97.511 Non-pressure chronic ulcer of other part of right foot limited to breakdown of skin; E11.52 Type 2 diabetes mellitus with diabetic peripheral angiopathy with gangrene; E11.22 Type 2 diabetes mellitus with diabetic chronic kidney disease; I13.0 Hypertensive heart and chronic kidney disease with heart failure and stage 1 through stage 4 chronic kidney disease, or unspecified chronic kidney disease; I50.9 Heart failure, unspecified; N18.9 Chronic kidney disease, unspecified; I25.2 Old myocardial infarction; I25.10 Atherosclerotic heart disease of native coronary artery without angina pectoris; Z86.73 Personal history of transient ischemic attack (TIA), and cerebral infarction without residual deficits; Z87.891 Personal history of nicotine dependence; Z79.82 Long term (current) use of aspirin; Z79.4 Long term (current) use of insulin; Z79.01 Long term (current) use of anticoagulants; Z95.0 Presence of cardiac pacemaker; Z95.1 Presence of aortocoronary bypass graft; Y83.5 Amputation of limb(s) as the cause of abnormal reaction of the patient, or of later complication, without mention of misadventure at the time of the procedure
CPT/HCPCS: 11043; 82962; G0277; 99183

== ENCOUNTER 2020-12-27 08:00 | Outpatient (CLI) | payer BC, MEDICAID | END 2020-12-27 08:01 | disposition home or self-care (01) | LOC: WOUND 08:00 | PROVIDERS: ATTEND Surgery | DX: E11.69 Type 2 diabetes mellitus with other specified complication (principal); M86.372 Chronic multifocal osteomyelitis, left ankle and foot; T87.89 Other complications of amputation stump; E11.621 Type 2 diabetes mellitus with foot ulcer; I70.262 Atherosclerosis of native arteries of extremities with gangrene, left leg; L89.626 Pressure-induced deep tissue damage of left heel; L97.524 Non-pressure chronic ulcer of other part of left foot with necrosis of bone; L97.421 Non-pressure chronic ulcer of left heel and midfoot limited to breakdown of skin; L97.511 Non-pressure chronic ulcer of other part of right foot limited to breakdown of skin; E11.52 Type 2 diabetes mellitus with diabetic peripheral angiopathy with gangrene; E11.22 Type 2 diabetes mellitus with diabetic chronic kidney disease; I13.0 Hypertensive heart and chronic kidney disease with heart failure and stage 1 through stage 4 chronic kidney disease, or unspecified chronic kidney disease; I50.9 Heart failure, unspecified; N18.9 Chronic kidney disease, unspecified; I25.2 Old myocardial infarction; I25.10 Atherosclerotic heart disease of native coronary artery without angina pectoris; Z86.73 Personal history of transient ischemic attack (TIA), and cerebral infarction without residual deficits; Z87.891 Personal history of nicotine dependence; Z79.82 Long term (current) use of aspirin; Z79.4 Long term (current) use of insulin; Z79.01 Long term (current) use of anticoagulants; Z95.0 Presence of cardiac pacemaker; Z95.1 Presence of aortocoronary bypass graft; Y83.5 Amputation of limb(s) as the cause of abnormal reaction of the patient, or of later complication, without mention of misadventure at the time of the procedure | CPT/HCPCS: 82962; G0277; 99183 ==

== ENCOUNTER 2020-12-28 08:09 | Outpatient (CLI) | payer BC, MEDICAID | END 2020-12-28 08:10 | disposition home or self-care (01) | LOC: WOUND 08:09 | PROVIDERS: ATTEND Surgery | DX: E11.69 Type 2 diabetes mellitus with other specified complication (principal); M86.372 Chronic multifocal osteomyelitis, left ankle and foot; T87.89 Other complications of amputation stump; E11.621 Type 2 diabetes mellitus with foot ulcer; I70.262 Atherosclerosis of native arteries of extremities with gangrene, left leg; L89.626 Pressure-induced deep tissue damage of left heel; L97.524 Non-pressure chronic ulcer of other part of left foot with necrosis of bone; L97.421 Non-pressure chronic ulcer of left heel and midfoot limited to breakdown of skin; L97.511 Non-pressure chronic ulcer of other part of right foot limited to breakdown of skin; E11.52 Type 2 diabetes mellitus with diabetic peripheral angiopathy with gangrene; E11.22 Type 2 diabetes mellitus with diabetic chronic kidney disease; I13.0 Hypertensive heart and chronic kidney disease with heart failure and stage 1 through stage 4 chronic kidney disease, or unspecified chronic kidney disease; I50.9 Heart failure, unspecified; N18.9 Chronic kidney disease, unspecified; I25.2 Old myocardial infarction; I25.10 Atherosclerotic heart disease of native coronary artery without angina pectoris; Z86.73 Personal history of transient ischemic attack (TIA), and cerebral infarction without residual deficits; Z87.891 Personal history of nicotine dependence; Z79.82 Long term (current) use of aspirin; Z79.4 Long term (current) use of insulin; Z79.01 Long term (current) use of anticoagulants; Z95.0 Presence of cardiac pacemaker; Z95.1 Presence of aortocoronary bypass graft; Y83.5 Amputation of limb(s) as the cause of abnormal reaction of the patient, or of later complication, without mention of misadventure at the time of the procedure | CPT/HCPCS: 82962; G0277; 99183 ==

== ENCOUNTER 2020-12-31 08:00 | Outpatient (CLI) | payer BC, MEDICAID | END 2020-12-31 08:01 | disposition home or self-care (01) | LOC: WOUND 08:00 | PROVIDERS: ATTEND Surgery | DX: E11.69 Type 2 diabetes mellitus with other specified complication (principal); M86.672 Other chronic osteomyelitis, left ankle and foot; T87.89 Other complications of amputation stump; E11.621 Type 2 diabetes mellitus with foot ulcer; I70.262 Atherosclerosis of native arteries of extremities with gangrene, left leg; L89.626 Pressure-induced deep tissue damage of left heel; L97.524 Non-pressure chronic ulcer of other part of left foot with necrosis of bone; L97.421 Non-pressure chronic ulcer of left heel and midfoot limited to breakdown of skin; L97.511 Non-pressure chronic ulcer of other part of right foot limited to breakdown of skin; E11.52 Type 2 diabetes mellitus with diabetic peripheral angiopathy with gangrene; E11.22 Type 2 diabetes mellitus with diabetic chronic kidney disease; I13.0 Hypertensive heart and chronic kidney disease with heart failure and stage 1 through stage 4 chronic kidney disease, or unspecified chronic kidney disease; I50.9 Heart failure, unspecified; N18.9 Chronic kidney disease, unspecified; I25.2 Old myocardial infarction; I25.10 Atherosclerotic heart disease of native coronary artery without angina pectoris; Z86.73 Personal history of transient ischemic attack (TIA), and cerebral infarction without residual deficits; Z87.891 Personal history of nicotine dependence; Z79.82 Long term (current) use of aspirin; Z79.4 Long term (current) use of insulin; Z79.01 Long term (current) use of anticoagulants; Z95.0 Presence of cardiac pacemaker; Z95.1 Presence of aortocoronary bypass graft; Y83.5 Amputation of limb(s) as the cause of abnormal reaction of the patient, or of later complication, without mention of misadventure at the time of the procedure | CPT/HCPCS: 82962; G0277; 99183 ==

== ENCOUNTER 2021-01-01 08:00 | Outpatient (CLI) | payer BC, MEDICAID | END 2021-01-01 23:59 | disposition home or self-care (01) | LOC: WOUND 08:00 | PROVIDERS: ATTEND Internal Medicine | DX: E11.69 Type 2 diabetes mellitus with other specified complication (principal); M86.672 Other chronic osteomyelitis, left ankle and foot; T87.89 Other complications of amputation stump; E11.621 Type 2 diabetes mellitus with foot ulcer; I70.262 Atherosclerosis of native arteries of extremities with gangrene, left leg; L89.626 Pressure-induced deep tissue damage of left heel; L97.524 Non-pressure chronic ulcer of other part of left foot with necrosis of bone; L97.421 Non-pressure chronic ulcer of left heel and midfoot limited to breakdown of skin; L97.511 Non-pressure chronic ulcer of other part of right foot limited to breakdown of skin; E11.52 Type 2 diabetes mellitus with diabetic peripheral angiopathy with gangrene; E11.22 Type 2 diabetes mellitus with diabetic chronic kidney disease; I13.0 Hypertensive heart and chronic kidney disease with heart failure and stage 1 through stage 4 chronic kidney disease, or unspecified chronic kidney disease; I50.9 Heart failure, unspecified; N18.9 Chronic kidney disease, unspecified; I25.2 Old myocardial infarction; I25.10 Atherosclerotic heart disease of native coronary artery without angina pectoris; Z86.73 Personal history of transient ischemic attack (TIA), and cerebral infarction without residual deficits; Z87.891 Personal history of nicotine dependence; Z79.82 Long term (current) use of aspirin; Z79.4 Long term (current) use of insulin; Z79.01 Long term (current) use of anticoagulants; Z95.0 Presence of cardiac pacemaker; Z95.1 Presence of aortocoronary bypass graft; Y83.5 Amputation of limb(s) as the cause of abnormal reaction of the patient, or of later complication, without mention of misadventure at the time of the procedure | CPT/HCPCS: 82962; G0277; 99183 ==

== ENCOUNTER 2021-01-02 08:19 | Outpatient (CLI) | payer BC, MEDICAID ==
[2021-01-02] MEDS ORDERED: LIDOCAINE (4%) 40 MG/ML TOPICAL SOLN 50 ML BOTTLE TP SCH (12:00)
== END 2021-01-02 08:20 | disposition home or self-care (01) ==
LOC: WOUND 08:19
PROVIDERS: ATTEND Surgery
DX: E11.69 Type 2 diabetes mellitus with other specified complication (principal); M86.672 Other chronic osteomyelitis, left ankle and foot; T87.89 Other complications of amputation stump; E11.621 Type 2 diabetes mellitus with foot ulcer; I70.262 Atherosclerosis of native arteries of extremities with gangrene, left leg; L89.626 Pressure-induced deep tissue damage of left heel; L97.524 Non-pressure chronic ulcer of other part of left foot with necrosis of bone; L97.421 Non-pressure chronic ulcer of left heel and midfoot limited to breakdown of skin; L97.511 Non-pressure chronic ulcer of other part of right foot limited to breakdown of skin; E11.52 Type 2 diabetes mellitus with diabetic peripheral angiopathy with gangrene; E11.22 Type 2 diabetes mellitus with diabetic chronic kidney disease; I13.0 Hypertensive heart and chronic kidney disease with heart failure and stage 1 through stage 4 chronic kidney disease, or unspecified chronic kidney disease; I50.9 Heart failure, unspecified; N18.9 Chronic kidney disease, unspecified; I25.2 Old myocardial infarction; I25.10 Atherosclerotic heart disease of native coronary artery without angina pectoris; Z86.73 Personal history of transient ischemic attack (TIA), and cerebral infarction without residual deficits; Z87.891 Personal history of nicotine dependence; Z79.82 Long term (current) use of aspirin; Z79.4 Long term (current) use of insulin; Z79.01 Long term (current) use of anticoagulants; Z95.0 Presence of cardiac pacemaker; Z95.1 Presence of aortocoronary bypass graft; Y83.5 Amputation of limb(s) as the cause of abnormal reaction of the patient, or of later complication, without mention of misadventure at the time of the procedure
CPT/HCPCS: 11043; 82962; G0277; 99183

== ENCOUNTER 2021-01-03 08:08 | Outpatient (CLI) | payer BC, MEDICAID | END 2021-01-03 08:09 | disposition home or self-care (01) | LOC: WOUND 08:08 | PROVIDERS: ATTEND Internal Medicine | DX: E11.69 Type 2 diabetes mellitus with other specified complication (principal); M86.672 Other chronic osteomyelitis, left ankle and foot; T87.89 Other complications of amputation stump; E11.621 Type 2 diabetes mellitus with foot ulcer; I70.262 Atherosclerosis of native arteries of extremities with gangrene, left leg; L89.626 Pressure-induced deep tissue damage of left heel; L97.524 Non-pressure chronic ulcer of other part of left foot with necrosis of bone; L97.421 Non-pressure chronic ulcer of left heel and midfoot limited to breakdown of skin; L97.511 Non-pressure chronic ulcer of other part of right foot limited to breakdown of skin; E11.52 Type 2 diabetes mellitus with diabetic peripheral angiopathy with gangrene; E11.22 Type 2 diabetes mellitus with diabetic chronic kidney disease; I13.0 Hypertensive heart and chronic kidney disease with heart failure and stage 1 through stage 4 chronic kidney disease, or unspecified chronic kidney disease; I50.9 Heart failure, unspecified; N18.9 Chronic kidney disease, unspecified; I25.2 Old myocardial infarction; I25.10 Atherosclerotic heart disease of native coronary artery without angina pectoris; Z86.73 Personal history of transient ischemic attack (TIA), and cerebral infarction without residual deficits; Z87.891 Personal history of nicotine dependence; Z79.82 Long term (current) use of aspirin; Z79.4 Long term (current) use of insulin; Z79.01 Long term (current) use of anticoagulants; Z95.0 Presence of cardiac pacemaker; Z95.1 Presence of aortocoronary bypass graft; Y83.5 Amputation of limb(s) as the cause of abnormal reaction of the patient, or of later complication, without mention of misadventure at the time of the procedure | CPT/HCPCS: 82962; G0277; 99183 ==

== ENCOUNTER 2021-01-04 08:00 | Outpatient (CLI) | payer BC, MEDICAID | END 2021-01-04 23:59 | disposition home or self-care (01) | LOC: WOUND 08:00 | PROVIDERS: ATTEND Internal Medicine | DX: E11.69 Type 2 diabetes mellitus with other specified complication (principal); M86.672 Other chronic osteomyelitis, left ankle and foot; T87.89 Other complications of amputation stump; E11.621 Type 2 diabetes mellitus with foot ulcer; I70.262 Atherosclerosis of native arteries of extremities with gangrene, left leg; L89.626 Pressure-induced deep tissue damage of left heel; L97.524 Non-pressure chronic ulcer of other part of left foot with necrosis of bone; L97.421 Non-pressure chronic ulcer of left heel and midfoot limited to breakdown of skin; L97.511 Non-pressure chronic ulcer of other part of right foot limited to breakdown of skin; E11.52 Type 2 diabetes mellitus with diabetic peripheral angiopathy with gangrene; E11.22 Type 2 diabetes mellitus with diabetic chronic kidney disease; I13.0 Hypertensive heart and chronic kidney disease with heart failure and stage 1 through stage 4 chronic kidney disease, or unspecified chronic kidney disease; I50.9 Heart failure, unspecified; N18.9 Chronic kidney disease, unspecified; I25.2 Old myocardial infarction; I25.10 Atherosclerotic heart disease of native coronary artery without angina pectoris; Z86.73 Personal history of transient ischemic attack (TIA), and cerebral infarction without residual deficits; Z87.891 Personal history of nicotine dependence; Z79.82 Long term (current) use of aspirin; Z79.4 Long term (current) use of insulin; Z79.01 Long term (current) use of anticoagulants; Z95.0 Presence of cardiac pacemaker; Z95.1 Presence of aortocoronary bypass graft; Y83.5 Amputation of limb(s) as the cause of abnormal reaction of the patient, or of later complication, without mention of misadventure at the time of the procedure | CPT/HCPCS: 82962; G0277; 99183 ==

== ENCOUNTER 2021-01-08 08:00 | Outpatient (CLI) | payer BC, MEDICAID | END 2021-01-08 08:01 | disposition home or self-care (01) | LOC: WOUND 08:00 | PROVIDERS: ATTEND Internal Medicine | DX: E11.69 Type 2 diabetes mellitus with other specified complication (principal); M86.672 Other chronic osteomyelitis, left ankle and foot; T87.89 Other complications of amputation stump; E11.621 Type 2 diabetes mellitus with foot ulcer; L97.524 Non-pressure chronic ulcer of other part of left foot with necrosis of bone; L97.421 Non-pressure chronic ulcer of left heel and midfoot limited to breakdown of skin; L97.511 Non-pressure chronic ulcer of other part of right foot limited to breakdown of skin; E11.52 Type 2 diabetes mellitus with diabetic peripheral angiopathy with gangrene; E11.22 Type 2 diabetes mellitus with diabetic chronic kidney disease; I13.0 Hypertensive heart and chronic kidney disease with heart failure and stage 1 through stage 4 chronic kidney disease, or unspecified chronic kidney disease; I50.9 Heart failure, unspecified; N18.9 Chronic kidney disease, unspecified; I25.2 Old myocardial infarction; I25.10 Atherosclerotic heart disease of native coronary artery without angina pectoris; Z86.73 Personal history of transient ischemic attack (TIA), and cerebral infarction without residual deficits; Z87.891 Personal history of nicotine dependence; Z79.82 Long term (current) use of aspirin; Z79.4 Long term (current) use of insulin; Z79.01 Long term (current) use of anticoagulants; Z95.0 Presence of cardiac pacemaker; Z95.1 Presence of aortocoronary bypass graft; Y83.5 Amputation of limb(s) as the cause of abnormal reaction of the patient, or of later complication, without mention of misadventure at the time of the procedure | CPT/HCPCS: 82962; G0277; 99183 ==

== ENCOUNTER 2021-01-09 08:00 | Outpatient (CLI) | payer BC, MEDICAID ==
[2021-01-09] MEDS ORDERED: LIDOCAINE (4%) 40 MG/ML TOPICAL SOLN 50 ML BOTTLE TP ONE (11:28)
== END 2021-01-09 08:01 | disposition home or self-care (01) ==
LOC: WOUND 08:00
PROVIDERS: ATTEND Surgery
DX: E11.69 Type 2 diabetes mellitus with other specified complication (principal); M86.672 Other chronic osteomyelitis, left ankle and foot; T87.89 Other complications of amputation stump; E11.621 Type 2 diabetes mellitus with foot ulcer; I70.262 Atherosclerosis of native arteries of extremities with gangrene, left leg; L89.626 Pressure-induced deep tissue damage of left heel; L97.524 Non-pressure chronic ulcer of other part of left foot with necrosis of bone; L97.421 Non-pressure chronic ulcer of left heel and midfoot limited to breakdown of skin; L97.511 Non-pressure chronic ulcer of other part of right foot limited to breakdown of skin; E11.52 Type 2 diabetes mellitus with diabetic peripheral angiopathy with gangrene; E11.22 Type 2 diabetes mellitus with diabetic chronic kidney disease; I13.0 Hypertensive heart and chronic kidney disease with heart failure and stage 1 through stage 4 chronic kidney disease, or unspecified chronic kidney disease; I50.9 Heart failure, unspecified; N18.9 Chronic kidney disease, unspecified; I25.2 Old myocardial infarction; I25.10 Atherosclerotic heart disease of native coronary artery without angina pectoris; Z86.73 Personal history of transient ischemic attack (TIA), and cerebral infarction without residual deficits; Z87.891 Personal history of nicotine dependence; Z79.82 Long term (current) use of aspirin; Z79.4 Long term (current) use of insulin; Z79.01 Long term (current) use of anticoagulants; Z95.0 Presence of cardiac pacemaker; Z95.1 Presence of aortocoronary bypass graft; Y83.5 Amputation of limb(s) as the cause of abnormal reaction of the patient, or of later complication, without mention of misadventure at the time of the procedure
CPT/HCPCS: 11043; G0277; 99183

== ENCOUNTER 2021-01-10 08:00 | Outpatient (CLI) | payer BC, MEDICAID | END 2021-01-10 23:59 | disposition home or self-care (01) | LOC: WOUND 08:00 | PROVIDERS: ATTEND Internal Medicine | DX: E11.69 Type 2 diabetes mellitus with other specified complication (principal); M86.672 Other chronic osteomyelitis, left ankle and foot; T87.89 Other complications of amputation stump; E11.621 Type 2 diabetes mellitus with foot ulcer; I70.262 Atherosclerosis of native arteries of extremities with gangrene, left leg; L89.626 Pressure-induced deep tissue damage of left heel; L97.524 Non-pressure chronic ulcer of other part of left foot with necrosis of bone; L98.421 Non-pressure chronic ulcer of back limited to breakdown of skin; L97.511 Non-pressure chronic ulcer of other part of right foot limited to breakdown of skin; E11.52 Type 2 diabetes mellitus with diabetic peripheral angiopathy with gangrene; E11.22 Type 2 diabetes mellitus with diabetic chronic kidney disease; I13.0 Hypertensive heart and chronic kidney disease with heart failure and stage 1 through stage 4 chronic kidney disease, or unspecified chronic kidney disease; I50.9 Heart failure, unspecified; N18.9 Chronic kidney disease, unspecified; I25.2 Old myocardial infarction; I25.10 Atherosclerotic heart disease of native coronary artery without angina pectoris; Z86.73 Personal history of transient ischemic attack (TIA), and cerebral infarction without residual deficits; Z87.891 Personal history of nicotine dependence; Z79.82 Long term (current) use of aspirin; Z79.4 Long term (current) use of insulin; Z79.01 Long term (current) use of anticoagulants; Z95.0 Presence of cardiac pacemaker; Z95.1 Presence of aortocoronary bypass graft; Y83.5 Amputation of limb(s) as the cause of abnormal reaction of the patient, or of later complication, without mention of misadventure at the time of the procedure | CPT/HCPCS: 82962; G0277; 99183 ==

== ENCOUNTER 2021-01-14 08:08 | Outpatient (CLI) | payer BC, MEDICAID | END 2021-01-14 08:09 | disposition home or self-care (01) | LOC: WOUND 08:08 | PROVIDERS: ATTEND Surgery | DX: E11.69 Type 2 diabetes mellitus with other specified complication (principal); M86.672 Other chronic osteomyelitis, left ankle and foot; T87.89 Other complications of amputation stump; E11.621 Type 2 diabetes mellitus with foot ulcer; I70.262 Atherosclerosis of native arteries of extremities with gangrene, left leg; L89.626 Pressure-induced deep tissue damage of left heel; L97.524 Non-pressure chronic ulcer of other part of left foot with necrosis of bone; L97.421 Non-pressure chronic ulcer of left heel and midfoot limited to breakdown of skin; L97.511 Non-pressure chronic ulcer of other part of right foot limited to breakdown of skin; E11.52 Type 2 diabetes mellitus with diabetic peripheral angiopathy with gangrene; E11.22 Type 2 diabetes mellitus with diabetic chronic kidney disease; I13.0 Hypertensive heart and chronic kidney disease with heart failure and stage 1 through stage 4 chronic kidney disease, or unspecified chronic kidney disease; I50.9 Heart failure, unspecified; N18.9 Chronic kidney disease, unspecified; I25.2 Old myocardial infarction; I25.10 Atherosclerotic heart disease of native coronary artery without angina pectoris; Z86.73 Personal history of transient ischemic attack (TIA), and cerebral infarction without residual deficits; Z87.891 Personal history of nicotine dependence; Z79.82 Long term (current) use of aspirin; Z79.4 Long term (current) use of insulin; Z79.01 Long term (current) use of anticoagulants; Z95.0 Presence of cardiac pacemaker; Z95.1 Presence of aortocoronary bypass graft; Y83.5 Amputation of limb(s) as the cause of abnormal reaction of the patient, or of later complication, without mention of misadventure at the time of the procedure | CPT/HCPCS: 82962; G0277; 99183 ==

== ENCOUNTER 2021-01-15 08:00 | Outpatient (CLI) | payer BC, MEDICAID | END 2021-01-15 08:01 | disposition home or self-care (01) | LOC: WOUND 08:00 | PROVIDERS: ATTEND Surgery | DX: E11.69 Type 2 diabetes mellitus with other specified complication (principal); M86.672 Other chronic osteomyelitis, left ankle and foot; T87.89 Other complications of amputation stump; E11.621 Type 2 diabetes mellitus with foot ulcer; I70.262 Atherosclerosis of native arteries of extremities with gangrene, left leg; L89.626 Pressure-induced deep tissue damage of left heel; L97.524 Non-pressure chronic ulcer of other part of left foot with necrosis of bone; L97.421 Non-pressure chronic ulcer of left heel and midfoot limited to breakdown of skin; L97.511 Non-pressure chronic ulcer of other part of right foot limited to breakdown of skin; E11.52 Type 2 diabetes mellitus with diabetic peripheral angiopathy with gangrene; E11.22 Type 2 diabetes mellitus with diabetic chronic kidney disease; I13.0 Hypertensive heart and chronic kidney disease with heart failure and stage 1 through stage 4 chronic kidney disease, or unspecified chronic kidney disease; I50.9 Heart failure, unspecified; N18.9 Chronic kidney disease, unspecified; I25.2 Old myocardial infarction; I25.10 Atherosclerotic heart disease of native coronary artery without angina pectoris; Z86.73 Personal history of transient ischemic attack (TIA), and cerebral infarction without residual deficits; Z87.891 Personal history of nicotine dependence; Z79.82 Long term (current) use of aspirin; Z79.4 Long term (current) use of insulin; Z79.01 Long term (current) use of anticoagulants; Z95.0 Presence of cardiac pacemaker; Z95.1 Presence of aortocoronary bypass graft; Y83.5 Amputation of limb(s) as the cause of abnormal reaction of the patient, or of later complication, without mention of misadventure at the time of the procedure | CPT/HCPCS: 82962; G0277; 99183 ==

== ENCOUNTER 2021-01-16 08:00 | Outpatient (CLI) | payer BC, MEDICAID ==
[2021-01-16] MEDS ORDERED: LIDOCAINE (4%) 40 MG/ML TOPICAL SOLN 50 ML BOTTLE TP ONE (10:43)
== END 2021-01-16 08:01 | disposition home or self-care (01) ==
LOC: WOUND 08:00
PROVIDERS: ATTEND Surgery
DX: E11.69 Type 2 diabetes mellitus with other specified complication (principal); M86.672 Other chronic osteomyelitis, left ankle and foot; T87.89 Other complications of amputation stump; E11.621 Type 2 diabetes mellitus with foot ulcer; I70.262 Atherosclerosis of native arteries of extremities with gangrene, left leg; L89.626 Pressure-induced deep tissue damage of left heel; L97.524 Non-pressure chronic ulcer of other part of left foot with necrosis of bone; L97.421 Non-pressure chronic ulcer of left heel and midfoot limited to breakdown of skin; L97.511 Non-pressure chronic ulcer of other part of right foot limited to breakdown of skin; E11.52 Type 2 diabetes mellitus with diabetic peripheral angiopathy with gangrene; E11.22 Type 2 diabetes mellitus with diabetic chronic kidney disease; I13.0 Hypertensive heart and chronic kidney disease with heart failure and stage 1 through stage 4 chronic kidney disease, or unspecified chronic kidney disease; I50.9 Heart failure, unspecified; N18.9 Chronic kidney disease, unspecified; I25.2 Old myocardial infarction; I25.10 Atherosclerotic heart disease of native coronary artery without angina pectoris; Z86.73 Personal history of transient ischemic attack (TIA), and cerebral infarction without residual deficits; Z87.891 Personal history of nicotine dependence; Z79.82 Long term (current) use of aspirin; Z79.4 Long term (current) use of insulin; Z79.01 Long term (current) use of anticoagulants; Z95.0 Presence of cardiac pacemaker; Z95.1 Presence of aortocoronary bypass graft; Y83.5 Amputation of limb(s) as the cause of abnormal reaction of the patient, or of later complication, without mention of misadventure at the time of the procedure
CPT/HCPCS: 11043; 82962; G0277; 99183

== ENCOUNTER 2021-01-17 08:07 | Outpatient (CLI) | payer BC, MEDICAID | END 2021-01-17 08:08 | disposition home or self-care (01) | LOC: WOUND 08:07 | PROVIDERS: ATTEND Internal Medicine | DX: E11.69 Type 2 diabetes mellitus with other specified complication (principal); M86.672 Other chronic osteomyelitis, left ankle and foot; T87.89 Other complications of amputation stump; E11.621 Type 2 diabetes mellitus with foot ulcer; I70.262 Atherosclerosis of native arteries of extremities with gangrene, left leg; L89.626 Pressure-induced deep tissue damage of left heel; L97.524 Non-pressure chronic ulcer of other part of left foot with necrosis of bone; L97.421 Non-pressure chronic ulcer of left heel and midfoot limited to breakdown of skin; L97.511 Non-pressure chronic ulcer of other part of right foot limited to breakdown of skin; E11.52 Type 2 diabetes mellitus with diabetic peripheral angiopathy with gangrene; E11.22 Type 2 diabetes mellitus with diabetic chronic kidney disease; I13.0 Hypertensive heart and chronic kidney disease with heart failure and stage 1 through stage 4 chronic kidney disease, or unspecified chronic kidney disease; I50.9 Heart failure, unspecified; N18.9 Chronic kidney disease, unspecified; I25.2 Old myocardial infarction; I25.10 Atherosclerotic heart disease of native coronary artery without angina pectoris; Z86.73 Personal history of transient ischemic attack (TIA), and cerebral infarction without residual deficits; Z87.891 Personal history of nicotine dependence; Z79.82 Long term (current) use of aspirin; Z79.4 Long term (current) use of insulin; Z79.01 Long term (current) use of anticoagulants; Z95.0 Presence of cardiac pacemaker; Z95.1 Presence of aortocoronary bypass graft; Y83.5 Amputation of limb(s) as the cause of abnormal reaction of the patient, or of later complication, without mention of misadventure at the time of the procedure | CPT/HCPCS: 82962; G0277; 99183 ==

== ENCOUNTER 2021-01-18 09:00 | Outpatient (CLI) | payer BC, MEDICAID | END 2021-01-18 09:01 | disposition home or self-care (01) | LOC: WOUND 09:00 | PROVIDERS: ATTEND Internal Medicine | DX: E11.69 Type 2 diabetes mellitus with other specified complication (principal); M86.672 Other chronic osteomyelitis, left ankle and foot; T87.89 Other complications of amputation stump; E11.621 Type 2 diabetes mellitus with foot ulcer; I70.262 Atherosclerosis of native arteries of extremities with gangrene, left leg; L89.626 Pressure-induced deep tissue damage of left heel; L97.524 Non-pressure chronic ulcer of other part of left foot with necrosis of bone; L97.421 Non-pressure chronic ulcer of left heel and midfoot limited to breakdown of skin; L97.511 Non-pressure chronic ulcer of other part of right foot limited to breakdown of skin; E11.52 Type 2 diabetes mellitus with diabetic peripheral angiopathy with gangrene; E11.22 Type 2 diabetes mellitus with diabetic chronic kidney disease; I13.0 Hypertensive heart and chronic kidney disease with heart failure and stage 1 through stage 4 chronic kidney disease, or unspecified chronic kidney disease; I50.9 Heart failure, unspecified; N18.9 Chronic kidney disease, unspecified; I25.2 Old myocardial infarction; I25.10 Atherosclerotic heart disease of native coronary artery without angina pectoris; Z86.73 Personal history of transient ischemic attack (TIA), and cerebral infarction without residual deficits; Z87.891 Personal history of nicotine dependence; Z79.82 Long term (current) use of aspirin; Z79.4 Long term (current) use of insulin; Z79.01 Long term (current) use of anticoagulants; Z95.0 Presence of cardiac pacemaker; Z95.1 Presence of aortocoronary bypass graft; Y83.5 Amputation of limb(s) as the cause of abnormal reaction of the patient, or of later complication, without mention of misadventure at the time of the procedure | CPT/HCPCS: 82962; G0277; 99183 ==

== ENCOUNTER 2021-01-21 08:15 | Outpatient (CLI) | payer BC, MEDICAID | END 2021-01-21 08:16 | disposition home or self-care (01) | LOC: WOUND 08:15 | PROVIDERS: ATTEND Surgery | DX: E11.69 Type 2 diabetes mellitus with other specified complication (principal); M86.672 Other chronic osteomyelitis, left ankle and foot; T87.89 Other complications of amputation stump; E11.621 Type 2 diabetes mellitus with foot ulcer; I70.262 Atherosclerosis of native arteries of extremities with gangrene, left leg; L89.626 Pressure-induced deep tissue damage of left heel; L97.524 Non-pressure chronic ulcer of other part of left foot with necrosis of bone; L97.421 Non-pressure chronic ulcer of left heel and midfoot limited to breakdown of skin; L97.511 Non-pressure chronic ulcer of other part of right foot limited to breakdown of skin; E11.52 Type 2 diabetes mellitus with diabetic peripheral angiopathy with gangrene; E11.22 Type 2 diabetes mellitus with diabetic chronic kidney disease; I13.0 Hypertensive heart and chronic kidney disease with heart failure and stage 1 through stage 4 chronic kidney disease, or unspecified chronic kidney disease; I50.9 Heart failure, unspecified; N18.9 Chronic kidney disease, unspecified; I25.2 Old myocardial infarction; I25.10 Atherosclerotic heart disease of native coronary artery without angina pectoris; Z86.73 Personal history of transient ischemic attack (TIA), and cerebral infarction without residual deficits; Z87.891 Personal history of nicotine dependence; Z79.82 Long term (current) use of aspirin; Z79.4 Long term (current) use of insulin; Z79.01 Long term (current) use of anticoagulants; Z95.0 Presence of cardiac pacemaker; Z95.1 Presence of aortocoronary bypass graft; Y83.5 Amputation of limb(s) as the cause of abnormal reaction of the patient, or of later complication, without mention of misadventure at the time of the procedure | CPT/HCPCS: 82962; G0277; 99183 ==

== ENCOUNTER 2021-01-22 08:21 | Outpatient (CLI) | payer BC, MEDICAID | END 2021-01-22 08:22 | disposition home or self-care (01) | LOC: WOUND 08:21 | PROVIDERS: ATTEND Internal Medicine | DX: E11.621 Type 2 diabetes mellitus with foot ulcer (principal); L97.524 Non-pressure chronic ulcer of other part of left foot with necrosis of bone; E11.69 Type 2 diabetes mellitus with other specified complication; M86.672 Other chronic osteomyelitis, left ankle and foot; T87.89 Other complications of amputation stump; I70.262 Atherosclerosis of native arteries of extremities with gangrene, left leg; L89.626 Pressure-induced deep tissue damage of left heel; L97.421 Non-pressure chronic ulcer of left heel and midfoot limited to breakdown of skin; L97.511 Non-pressure chronic ulcer of other part of right foot limited to breakdown of skin; E11.52 Type 2 diabetes mellitus with diabetic peripheral angiopathy with gangrene; E11.22 Type 2 diabetes mellitus with diabetic chronic kidney disease; I13.0 Hypertensive heart and chronic kidney disease with heart failure and stage 1 through stage 4 chronic kidney disease, or unspecified chronic kidney disease; I50.9 Heart failure, unspecified; N18.9 Chronic kidney disease, unspecified; I25.2 Old myocardial infarction; I25.10 Atherosclerotic heart disease of native coronary artery without angina pectoris; Z86.73 Personal history of transient ischemic attack (TIA), and cerebral infarction without residual deficits; Z87.891 Personal history of nicotine dependence; Z79.82 Long term (current) use of aspirin; Z79.4 Long term (current) use of insulin; Z95.0 Presence of cardiac pacemaker; Z79.01 Long term (current) use of anticoagulants; Z95.1 Presence of aortocoronary bypass graft; Y83.5 Amputation of limb(s) as the cause of abnormal reaction of the patient, or of later complication, without mention of misadventure at the time of the procedure | CPT/HCPCS: 82962; G0277; 99183 ==

== ENCOUNTER 2021-01-23 08:21 | Outpatient (CLI) | payer BC, MEDICAID ==
[2021-01-23] MEDS ORDERED: LIDOCAINE (4%) 40 MG/ML TOPICAL SOLN 50 ML BOTTLE TP ONE (08:28)
== END 2021-01-23 08:22 | disposition home or self-care (01) ==
LOC: WOUND 08:21
PROVIDERS: ATTEND Surgery
DX: E11.69 Type 2 diabetes mellitus with other specified complication (principal); M86.672 Other chronic osteomyelitis, left ankle and foot; T87.89 Other complications of amputation stump; E11.621 Type 2 diabetes mellitus with foot ulcer; I70.262 Atherosclerosis of native arteries of extremities with gangrene, left leg; L97.524 Non-pressure chronic ulcer of other part of left foot with necrosis of bone; L97.421 Non-pressure chronic ulcer of left heel and midfoot limited to breakdown of skin; L97.511 Non-pressure chronic ulcer of other part of right foot limited to breakdown of skin; E11.52 Type 2 diabetes mellitus with diabetic peripheral angiopathy with gangrene; E11.22 Type 2 diabetes mellitus with diabetic chronic kidney disease; I13.0 Hypertensive heart and chronic kidney disease with heart failure and stage 1 through stage 4 chronic kidney disease, or unspecified chronic kidney disease; I50.9 Heart failure, unspecified; N18.9 Chronic kidney disease, unspecified; I25.2 Old myocardial infarction; I25.10 Atherosclerotic heart disease of native coronary artery without angina pectoris; Z86.73 Personal history of transient ischemic attack (TIA), and cerebral infarction without residual deficits; Z87.891 Personal history of nicotine dependence; Z79.82 Long term (current) use of aspirin; Z79.4 Long term (current) use of insulin; Z79.01 Long term (current) use of anticoagulants; Z95.0 Presence of cardiac pacemaker; Z95.1 Presence of aortocoronary bypass graft; Y83.5 Amputation of limb(s) as the cause of abnormal reaction of the patient, or of later complication, without mention of misadventure at the time of the procedure

== ENCOUNTER 2021-01-30 08:31 | Outpatient (CLI) | payer BC, MEDICAID ==
[2021-01-30] MEDS ORDERED: LIDOCAINE (4%) 40 MG/ML TOPICAL SOLN 50 ML BOTTLE TP SCH (09:00)
== END 2021-01-30 08:32 | disposition home or self-care (01) ==
LOC: WOUND 08:31
PROVIDERS: ATTEND Surgery
DX: T87.89 Other complications of amputation stump (principal); E11.621 Type 2 diabetes mellitus with foot ulcer; I70.262 Atherosclerosis of native arteries of extremities with gangrene, left leg; L97.524 Non-pressure chronic ulcer of other part of left foot with necrosis of bone; L97.511 Non-pressure chronic ulcer of other part of right foot limited to breakdown of skin; L89.626 Pressure-induced deep tissue damage of left heel; L97.421 Non-pressure chronic ulcer of left heel and midfoot limited to breakdown of skin; E11.69 Type 2 diabetes mellitus with other specified complication; M86.672 Other chronic osteomyelitis, left ankle and foot; E11.52 Type 2 diabetes mellitus with diabetic peripheral angiopathy with gangrene; E11.22 Type 2 diabetes mellitus with diabetic chronic kidney disease; I13.0 Hypertensive heart and chronic kidney disease with heart failure and stage 1 through stage 4 chronic kidney disease, or unspecified chronic kidney disease; I50.9 Heart failure, unspecified; N18.9 Chronic kidney disease, unspecified; I25.2 Old myocardial infarction; I25.10 Atherosclerotic heart disease of native coronary artery without angina pectoris; Z86.73 Personal history of transient ischemic attack (TIA), and cerebral infarction without residual deficits; Z87.891 Personal history of nicotine dependence; Z79.82 Long term (current) use of aspirin; Z79.4 Long term (current) use of insulin; Z95.0 Presence of cardiac pacemaker; Z79.01 Long term (current) use of anticoagulants; Z95.1 Presence of aortocoronary bypass graft; Y83.5 Amputation of limb(s) as the cause of abnormal reaction of the patient, or of later complication, without mention of misadventure at the time of the procedure

== ENCOUNTER 2021-02-06 08:15 | Outpatient (CLI) | payer BC, MEDICAID ==
[2021-02-06] MEDS ORDERED: LIDOCAINE (4%) 40 MG/ML TOPICAL SOLN 50 ML BOTTLE TP ONE (08:18)
== END 2021-02-06 08:16 | disposition home or self-care (01) ==
LOC: WOUND 08:15
PROVIDERS: ATTEND Surgery
DX: T87.89 Other complications of amputation stump (principal); E11.621 Type 2 diabetes mellitus with foot ulcer; I70.262 Atherosclerosis of native arteries of extremities with gangrene, left leg; L97.524 Non-pressure chronic ulcer of other part of left foot with necrosis of bone; L97.511 Non-pressure chronic ulcer of other part of right foot limited to breakdown of skin; L89.626 Pressure-induced deep tissue damage of left heel; L97.421 Non-pressure chronic ulcer of left heel and midfoot limited to breakdown of skin; E11.69 Type 2 diabetes mellitus with other specified complication; M86.672 Other chronic osteomyelitis, left ankle and foot; E11.52 Type 2 diabetes mellitus with diabetic peripheral angiopathy with gangrene; E11.22 Type 2 diabetes mellitus with diabetic chronic kidney disease; I13.0 Hypertensive heart and chronic kidney disease with heart failure and stage 1 through stage 4 chronic kidney disease, or unspecified chronic kidney disease; I50.9 Heart failure, unspecified; N18.9 Chronic kidney disease, unspecified; I25.2 Old myocardial infarction; I25.10 Atherosclerotic heart disease of native coronary artery without angina pectoris; Z86.73 Personal history of transient ischemic attack (TIA), and cerebral infarction without residual deficits; Z87.891 Personal history of nicotine dependence; Z79.82 Long term (current) use of aspirin; Z79.4 Long term (current) use of insulin; Z95.0 Presence of cardiac pacemaker; Z95.1 Presence of aortocoronary bypass graft; Z79.01 Long term (current) use of anticoagulants; Y83.5 Amputation of limb(s) as the cause of abnormal reaction of the patient, or of later complication, without mention of misadventure at the time of the procedure

== ENCOUNTER 2021-02-13 08:37 | Outpatient (CLI) | payer BC, MEDICAID ==
[2021-02-13] MEDS ORDERED: LIDOCAINE (4%) 40 MG/ML TOPICAL SOLN 50 ML BOTTLE TP SCH (09:00)
== END 2021-02-13 08:38 | disposition home or self-care (01) ==
LOC: WOUND 08:37
PROVIDERS: ATTEND Surgery
DX: T87.89 Other complications of amputation stump (principal); E11.621 Type 2 diabetes mellitus with foot ulcer; I70.262 Atherosclerosis of native arteries of extremities with gangrene, left leg; L97.524 Non-pressure chronic ulcer of other part of left foot with necrosis of bone; L97.511 Non-pressure chronic ulcer of other part of right foot limited to breakdown of skin; L89.626 Pressure-induced deep tissue damage of left heel; L97.421 Non-pressure chronic ulcer of left heel and midfoot limited to breakdown of skin; E11.69 Type 2 diabetes mellitus with other specified complication; M86.672 Other chronic osteomyelitis, left ankle and foot; E11.52 Type 2 diabetes mellitus with diabetic peripheral angiopathy with gangrene; E11.22 Type 2 diabetes mellitus with diabetic chronic kidney disease; I13.0 Hypertensive heart and chronic kidney disease with heart failure and stage 1 through stage 4 chronic kidney disease, or unspecified chronic kidney disease; I50.9 Heart failure, unspecified; N18.9 Chronic kidney disease, unspecified; I25.2 Old myocardial infarction; I25.10 Atherosclerotic heart disease of native coronary artery without angina pectoris; Z86.73 Personal history of transient ischemic attack (TIA), and cerebral infarction without residual deficits; Z87.891 Personal history of nicotine dependence; Z79.82 Long term (current) use of aspirin; Z79.4 Long term (current) use of insulin; Z95.0 Presence of cardiac pacemaker; Z95.1 Presence of aortocoronary bypass graft; Z79.01 Long term (current) use of anticoagulants; Y83.5 Amputation of limb(s) as the cause of abnormal reaction of the patient, or of later complication, without mention of misadventure at the time of the procedure

== ENCOUNTER 2021-02-27 08:31 | Outpatient (CLI) | payer BC, MEDICAID ==
[2021-02-27] MEDS ORDERED: LIDOCAINE (4%) 40 MG/ML TOPICAL SOLN 50 ML BOTTLE TP ONE (08:36)
== END 2021-02-27 08:32 | disposition home or self-care (01) ==
LOC: WOUND 08:31
PROVIDERS: ATTEND Surgery
DX: T87.89 Other complications of amputation stump (principal); E11.621 Type 2 diabetes mellitus with foot ulcer; I70.262 Atherosclerosis of native arteries of extremities with gangrene, left leg; L97.524 Non-pressure chronic ulcer of other part of left foot with necrosis of bone; L97.511 Non-pressure chronic ulcer of other part of right foot limited to breakdown of skin; L89.626 Pressure-induced deep tissue damage of left heel; L97.421 Non-pressure chronic ulcer of left heel and midfoot limited to breakdown of skin; E11.69 Type 2 diabetes mellitus with other specified complication; M86.672 Other chronic osteomyelitis, left ankle and foot; E11.52 Type 2 diabetes mellitus with diabetic peripheral angiopathy with gangrene; E11.22 Type 2 diabetes mellitus with diabetic chronic kidney disease; I13.0 Hypertensive heart and chronic kidney disease with heart failure and stage 1 through stage 4 chronic kidney disease, or unspecified chronic kidney disease; I50.9 Heart failure, unspecified; N18.9 Chronic kidney disease, unspecified; I25.2 Old myocardial infarction; I25.10 Atherosclerotic heart disease of native coronary artery without angina pectoris; Z86.73 Personal history of transient ischemic attack (TIA), and cerebral infarction without residual deficits; Z87.891 Personal history of nicotine dependence; Z79.82 Long term (current) use of aspirin; Z79.4 Long term (current) use of insulin; Z95.0 Presence of cardiac pacemaker; Z95.1 Presence of aortocoronary bypass graft; Z79.01 Long term (current) use of anticoagulants; Y83.5 Amputation of limb(s) as the cause of abnormal reaction of the patient, or of later complication, without mention of misadventure at the time of the procedure

== ENCOUNTER 2021-03-06 08:47 | Outpatient (CLI) | payer BC, MEDICAID ==
[2021-03-06] MEDS ORDERED: LIDOCAINE (4%) 40 MG/ML TOPICAL SOLN 50 ML BOTTLE TP ONE (08:49)
== END 2021-03-06 08:48 | disposition home or self-care (01) ==
LOC: WOUND 08:47
PROVIDERS: ATTEND Surgery
DX: T87.89 Other complications of amputation stump (principal); E11.621 Type 2 diabetes mellitus with foot ulcer; I70.262 Atherosclerosis of native arteries of extremities with gangrene, left leg; L97.524 Non-pressure chronic ulcer of other part of left foot with necrosis of bone; L97.511 Non-pressure chronic ulcer of other part of right foot limited to breakdown of skin; L89.626 Pressure-induced deep tissue damage of left heel; L97.421 Non-pressure chronic ulcer of left heel and midfoot limited to breakdown of skin; E11.69 Type 2 diabetes mellitus with other specified complication; M86.672 Other chronic osteomyelitis, left ankle and foot; E11.52 Type 2 diabetes mellitus with diabetic peripheral angiopathy with gangrene; E11.22 Type 2 diabetes mellitus with diabetic chronic kidney disease; I13.0 Hypertensive heart and chronic kidney disease with heart failure and stage 1 through stage 4 chronic kidney disease, or unspecified chronic kidney disease; I50.9 Heart failure, unspecified; N18.9 Chronic kidney disease, unspecified; I25.2 Old myocardial infarction; I25.10 Atherosclerotic heart disease of native coronary artery without angina pectoris; Z86.73 Personal history of transient ischemic attack (TIA), and cerebral infarction without residual deficits; Z87.891 Personal history of nicotine dependence; Z79.82 Long term (current) use of aspirin; Z79.4 Long term (current) use of insulin; Z95.0 Presence of cardiac pacemaker; Z95.1 Presence of aortocoronary bypass graft; Z79.01 Long term (current) use of anticoagulants; Y83.5 Amputation of limb(s) as the cause of abnormal reaction of the patient, or of later complication, without mention of misadventure at the time of the procedure

== ENCOUNTER 2021-03-13 09:10 | Outpatient (CLI) | payer BC, MEDICAID ==
[2021-03-13] MEDS ORDERED: LIDOCAINE (4%) 40 MG/ML TOPICAL SOLN 50 ML BOTTLE TP ONE (09:19)
== END 2021-03-13 09:11 | disposition home or self-care (01) ==
LOC: WOUND 09:10
PROVIDERS: ATTEND Surgery
DX: T87.89 Other complications of amputation stump (principal); E11.621 Type 2 diabetes mellitus with foot ulcer; I70.262 Atherosclerosis of native arteries of extremities with gangrene, left leg; L97.524 Non-pressure chronic ulcer of other part of left foot with necrosis of bone; L97.511 Non-pressure chronic ulcer of other part of right foot limited to breakdown of skin; L89.626 Pressure-induced deep tissue damage of left heel; L97.421 Non-pressure chronic ulcer of left heel and midfoot limited to breakdown of skin; E11.69 Type 2 diabetes mellitus with other specified complication; M86.672 Other chronic osteomyelitis, left ankle and foot; E11.52 Type 2 diabetes mellitus with diabetic peripheral angiopathy with gangrene; E11.22 Type 2 diabetes mellitus with diabetic chronic kidney disease; I13.0 Hypertensive heart and chronic kidney disease with heart failure and stage 1 through stage 4 chronic kidney disease, or unspecified chronic kidney disease; I50.9 Heart failure, unspecified; N18.9 Chronic kidney disease, unspecified; I25.2 Old myocardial infarction; I25.10 Atherosclerotic heart disease of native coronary artery without angina pectoris; Z86.73 Personal history of transient ischemic attack (TIA), and cerebral infarction without residual deficits; Z87.891 Personal history of nicotine dependence; Z79.82 Long term (current) use of aspirin; Z79.4 Long term (current) use of insulin; Z95.0 Presence of cardiac pacemaker; Z95.1 Presence of aortocoronary bypass graft; Z79.01 Long term (current) use of anticoagulants; Y83.5 Amputation of limb(s) as the cause of abnormal reaction of the patient, or of later complication, without mention of misadventure at the time of the procedure

== ENCOUNTER 2021-03-20 08:37 | Outpatient (CLI) | payer BC, MEDICAID ==
[2021-03-20] MEDS ORDERED: LIDOCAINE (4%) 40 MG/ML TOPICAL SOLN 50 ML BOTTLE TP ONE (08:41)
== END 2021-03-20 08:38 | disposition home or self-care (01) ==
LOC: WOUND 08:37
PROVIDERS: ATTEND Surgery
DX: T87.89 Other complications of amputation stump (principal); E11.621 Type 2 diabetes mellitus with foot ulcer; I70.262 Atherosclerosis of native arteries of extremities with gangrene, left leg; L97.524 Non-pressure chronic ulcer of other part of left foot with necrosis of bone; L97.511 Non-pressure chronic ulcer of other part of right foot limited to breakdown of skin; L89.626 Pressure-induced deep tissue damage of left heel; L97.421 Non-pressure chronic ulcer of left heel and midfoot limited to breakdown of skin; E11.69 Type 2 diabetes mellitus with other specified complication; M86.672 Other chronic osteomyelitis, left ankle and foot; E11.52 Type 2 diabetes mellitus with diabetic peripheral angiopathy with gangrene; E11.22 Type 2 diabetes mellitus with diabetic chronic kidney disease; I13.0 Hypertensive heart and chronic kidney disease with heart failure and stage 1 through stage 4 chronic kidney disease, or unspecified chronic kidney disease; I50.9 Heart failure, unspecified; N18.9 Chronic kidney disease, unspecified; I25.2 Old myocardial infarction; I25.10 Atherosclerotic heart disease of native coronary artery without angina pectoris; Z86.73 Personal history of transient ischemic attack (TIA), and cerebral infarction without residual deficits; Z87.891 Personal history of nicotine dependence; Z79.82 Long term (current) use of aspirin; Z79.4 Long term (current) use of insulin; Z95.0 Presence of cardiac pacemaker; Z95.1 Presence of aortocoronary bypass graft; Z79.01 Long term (current) use of anticoagulants; Y83.5 Amputation of limb(s) as the cause of abnormal reaction of the patient, or of later complication, without mention of misadventure at the time of the procedure

== ENCOUNTER 2021-03-27 08:51 | Outpatient (CLI) | payer BC, MEDICAID ==
[2021-03-27] MEDS ORDERED: LIDOCAINE (4%) 40 MG/ML TOPICAL SOLN 50 ML BOTTLE TP ONE (08:54)
== END 2021-03-27 08:52 | disposition home or self-care (01) ==
LOC: WOUND 08:51
PROVIDERS: ATTEND Surgery
DX: T87.89 Other complications of amputation stump (principal); E11.621 Type 2 diabetes mellitus with foot ulcer; I70.262 Atherosclerosis of native arteries of extremities with gangrene, left leg; L97.524 Non-pressure chronic ulcer of other part of left foot with necrosis of bone; L97.511 Non-pressure chronic ulcer of other part of right foot limited to breakdown of skin; L89.626 Pressure-induced deep tissue damage of left heel; L97.421 Non-pressure chronic ulcer of left heel and midfoot limited to breakdown of skin; E11.69 Type 2 diabetes mellitus with other specified complication; M86.672 Other chronic osteomyelitis, left ankle and foot; E11.52 Type 2 diabetes mellitus with diabetic peripheral angiopathy with gangrene; E11.22 Type 2 diabetes mellitus with diabetic chronic kidney disease; I13.0 Hypertensive heart and chronic kidney disease with heart failure and stage 1 through stage 4 chronic kidney disease, or unspecified chronic kidney disease; I50.9 Heart failure, unspecified; N18.9 Chronic kidney disease, unspecified; I25.2 Old myocardial infarction; I25.10 Atherosclerotic heart disease of native coronary artery without angina pectoris; Z86.73 Personal history of transient ischemic attack (TIA), and cerebral infarction without residual deficits; Z87.891 Personal history of nicotine dependence; Z79.82 Long term (current) use of aspirin; Z79.4 Long term (current) use of insulin; Z95.0 Presence of cardiac pacemaker; Z95.1 Presence of aortocoronary bypass graft; Z79.01 Long term (current) use of anticoagulants; Y83.5 Amputation of limb(s) as the cause of abnormal reaction of the patient, or of later complication, without mention of misadventure at the time of the procedure

== ENCOUNTER 2021-03-29 06:52 | Day surgery (SDC) | payer BC, MEDICAID, MEDICARE ==
[2021-03-29] MEDS ORDERED: SODIUM CHLORIDE 0.9% 500 ML 500 ML IV SCH (08:00)
[2021-03-29] MEDS ORDERED: HEPARIN/NS 5000 UNIT/500ML 1,000 ML IR ONE (08:37)
[2021-03-29] MEDS ORDERED: LIDOCAINE (2%) 20 MG/1 ML VIAL 20 ML MDV INFILTRATI ONE (08:37)
[2021-03-29 08:49] LABS: BUN/Creatinine Ratio 16; Blood Urea Nitrogen 18 mg/dL (9-20); Calcium 9.3 mg/dL (8.4-10.2); Hemolysis Index 9
[2021-03-29 09:41] LABS: INR 1.11 (0.87-1.13)
[2021-03-29 09:42] LABS: Partial Thromboplastin Time 31.6 Sec. (24.2-36.6)
[2021-03-29 09:50] LABS: Hematocrit 37.8 % (35.5-45.6); Hemoglobin 12.2 gm/dl (11.8-15.2); Mean Corpuscular HGB Conc 32 % (32-34); Mean Corpuscular Volume 81 fl (84-94); Platelet Count 251 K/mm3 (140-440); Red Blood Count 4.67 M/mm3 (3.65-5.03)
[2021-03-29] MEDS ORDERED: ceFAZolin/Water 2 GM/20 ML 2 GM/20 ML SYRINGE IV ONE (10:08)
[2021-03-29] MEDS: MIDAZOLAM 2 MG/2 ML INJ ONE ×2 (10:22→11:06)
[2021-03-29] MEDS: fentaNYL 100 MCG/2 ML INJ ONE ×3 (10:22→11:36)
[2021-03-29] MEDS: HEPARIN 10,000 UNITS/10 ML VIAL ONE ×2 (10:42→11:27)
[2021-03-29] MEDS ORDERED: SODIUM CHLORIDE 0.9% 1000 ML 0 ML ONE (11:00)
[2021-03-29] MEDS ORDERED: hydrALAZINE 20 MG/1 ML INJ ONE (11:49)
[2021-03-29] MEDS ORDERED: fentaNYL 100 MCG/2 ML INJ ONE (11:57)
[2021-03-29] MEDS ORDERED: fentaNYL 100 MCG/2 ML INJ IV ONE ×2 (12:18→12:53)
[2021-03-29] MEDS ORDERED: HEPARIN/NS 5000 UNIT/500ML 500 ML IR ONE (12:21)
[2021-03-29] MEDS ORDERED: HEPARIN 10,000 UNITS/10 ML VIAL IV ONE (12:27)
[2021-03-29] MEDS ORDERED: NITROGLYCERIN SYRINGE 0 ML ONE (12:29)
[2021-03-29] MEDS ORDERED: NITROGLYCERIN 600 MCG/3 ML SYRINGE ART-SHEATH ONE (12:31)
[2021-03-29] MEDS ORDERED: NITROGLYCERIN SYRINGE 3 ML ONE (12:36)
[2021-03-29] MEDS ORDERED: SODIUM CHLORIDE 0.9% 1000 ML 1,000 ML ONE (12:38)
--- NOTE | 2021-03-29 14:04 | Short Stay Summary ---
Short Stay Documentation Date of service: 03/29/21 Narrative H&P: See Mallampati Sheet - History Principal diagnosis: Peripheral Vascular Disease with Poorly Healing Bilateral TMAs Past Medical History: CAD, diabetes, heart failure, hypertension, hyperlipi demia, PVD Past Surgical History: cholecystectomy, CABG, Other (Bilateral transmetatarsal amputations) Social history: - Allergies and Medications Current Medications: Allergies No Known Allergies Allergy (Verified 01/17/20 15:57) Home Medications Medication Instructions Recorded Confirmed Last Taken Type Dorzolamide HCl/Timolol Maleat 1 drop OU BID 02/18/19 03/29/21 03/26/21 History [Dorzolamide-Timolol Eye Drops] 1 DROP AtorvaSTATin [Lipitor] 40 mg PO QHS #30 tablet 08/12/19 03/29/21 03/26/21 Rx 1 TAB Clopidogrel [Plavix] 75 mg PO QDAY #30 tablet 08/12/19 07/30/20 03/27/21 Rx 1 TAB Furosemide [Lasix TAB] 40 mg PO QDAY tablet 09/22/19 03/29/21 03/28/21 Rx 1 TAB carvediloL [Coreg] 3.125 mg PO BID #60 tablet 09/22/19 03/29/21 03/28/21 Rx 3.125 MG Nitroglycerin [Nitrostat] 0.4 mg SL Q5M PRN 10/17/19 03/29/21 Unknown History lisinopriL [Zestril TAB] 5 mg PO QDAY 10/17/19 03/29/21 03/28/21 History 5 MG oxyCODONE /ACETAMINOPHEN [Percocet 1 tab PO Q4H PRN 07/30/20 03/29/21 03/28/21 History 5/325 mg] 2 TABS Insulin NPH/Regular [NovoLIN 70/30] 25 unit SUB-Q QDDIAB 30 Days 08/02/20 03/29/21 Unknown Rx Insulin NPH/Regular [NovoLIN 70/30] 25 unit SUB-Q QPMDIAB 30 Days 08/02/20 03/29/21 Unknown Rx Lispro Insulin [HumaLOG] 0 unit SUB-Q ACHS 30 Days 08/02/20 03/29/21 Unknown Rx Potassium Chloride [K-Dur] 20 meq PO QDAY #30 tablet 0403/29/21 03/28/21 Rx 20 MEQ Gabapentin 400 mg PO Q8HR 03/29/21 03/29/21 03/28/21 History 3 TABS Spironolactone [Aldactone] 25 mg PO DAILY 03/29/21 03/29/21 03/28/21 History 1 TAB Active Medications Sodium Chloride (Nacl 0.9% 500 Ml) 500 mls @ 50 mls/hr IV DIRECT THOMPSON Stop: 03/29/21 23:00 - Brief post op/procedure progress note Date of procedure: 03/29/21 Pre-op diagnosis: PVD with Bilateral Poorly Healing TMA's Post-op diagnosis: same Procedure: 1. Ultrasound-Guided Access Right Common Femoral Artery 2. Diagnostic Aortogram 3. Diagnostic Left Lower Extremity Angiogram 4. Atherectomy with Angioplasty of Left Common Femoral Artery, SFA, and Popliteal Artery with 2.4/3.4 PeerMe Atherectomy Catheter, 7.0 x 80 IN.PACT Drug-Coated Balloon in the Common Femoral Artery, 6.0 x 150 IN.PACT Drug-Coated Balloon in the SFA (x3), and a 5.0 x 150 IN.PACT Drug-Coated Balloon In the Popliteal Artery 5. Angioplasty and Stent of the Left Peroneal Artery with a 3.0 x 100 Angiosculpt Balloon, 4.0 x 150 IN.PACT Drug-Coated Balloon (x2), and a 4.0 x 38 mm and a 4.0 x 30 mm Medtronic Resolute B[place] Drug-Eluting Stent 6. Closure of Right Femoral Arteriotomy with Angio-Seal Closure Device 7. Radiologic Supervision with Interpretation 8. Monitored Moderate Sedation (Total Anesthesia Time: 158 Minutes) Anesthesia: local, other (Monitored Moderate Sedation) Surgeon: URIAH JERRY Estimated blood loss: minimal Pathology: none Condition: stable - Disposition Condition at discharge: Good Disposition: 01 HOME / SELF CARE / HOMELESS Short Stay Discharge Plan Activity: other Wound: remove dressing (In 24 hours), other (Okay to shower and wash the wound with soap and water but do not soak in water for 2 weeks.) Additional Instructions: follow up with primary medical doctor in 1 week return to Emergency Room for medical emergency. Follow up with: URIAH JERRY MD [Staff Physician] - 14 Days Forms: Post Arteriogram Instruct Prescriptions: Apixaban [Eliquis] 5 mg PO BID #60 tablet Aspirin EC [Halfprin EC] 81 mg PO QDAY #90 tablet. Pantoprazole [Protonix] 40 mg PO QDAY #90 tablet
[2021-03-29] MEDS ORDERED: CLOPIDOGREL 300 MG TAB PO ONE (14:12)
--- NOTE | 2021-03-29 14:18 | Operative Report ---
Operative Report Operative Report: Date of Procedure: 03/29/2021 Pre-operative Diagnosis: Peripheral Vascular Disease with Poorly Healing Bilate ral Transmetatarsal Amputations Post-operative Diagnosis: Same Procedure(s): 1. Ultrasound-Guided Access Right Common Femoral Artery 2. Diagnostic Aortogram 3. Diagnostic Left Lower Extremity Angiogram 4. Atherectomy with Angioplasty of Left Common Femoral Artery, SFA, and Popliteal Artery with 2.4/3.4 Jetstream Atherectomy Catheter, 7.0 x 80 IN.PACT Drug-Coated Balloon in the Common Femoral Artery, 6.0 x 150 IN.PACT Drug-Coated Balloon in the SFA (x3), and a 5.0 x 150 IN.PACT Drug-Coated Balloon In the Popliteal Artery 5. Angioplasty and Stent of the Left Peroneal Artery with a 3.0 x 100 Angiosculpt Balloon, 4.0 x 150 IN.PACT Drug-Coated Balloon (x2), and a 4.0 x 38 mm and a 4.0 x 30 mm Medtronic Resolute [place] Drug-Eluting Stent 6. Closure of Right Femoral Arteriotomy with a 6 Tajik Angio-Seal Closure Device 7. Radiologic Supervision with Interpretation 8. Monitored Moderate Sedation (Total Anesthesia Time: 158 Minutes) Surgeon: Flaquito Nair M.D. Wardrobe Technician: Zulema Anesthesia: Local/Monitored Moderate Sedation Total Anesthesia Time: 158 Minutes EBL: Minimal Counts: Correct Complications: None Condition: Stable Specimen: None Indication: The patient is a 65-year-old male with a history of coronary artery disease, diabetes, and peripheral vascular disease who has undergone bilateral transmetatarsal amputations. The left transmetatarsal amputation was performed approximately 1 year ago and had healed however he developed osteomyelitis and has been on antibiotics and undergone hyperbaric oxygen without healing of the wound. He is in need of diagnostic angiogram and possible intervention. He was given the risk, benefits, and alternative procedures and consented to the procedure. Angiographic Findings: The diagnostic aortogram revealed that the aorta was patent with mild ectasia however there was no evidence of aneurysmal dilatation or flow-limiting stenosis. The left common iliac artery was patent without evidence of flow- limiting stenosis. The hypogastric artery was occluded. The external iliac artery was patent without evidence of flow-limiting stenosis. There was approximately 50% stenosis of the common femoral artery. The profunda artery was patent without significant flow-limiting stenosis. The SFA was diffusely diseased with 50 to 75% stenosis. The popliteal artery was diffusely diseased with 50 to 75% stenosis and occlusion in the above-knee popliteal artery in the midsegment. There was no reconstitution within the popliteal artery and all 3 tibial vessels were occluded. There was reconstitution of flow in the distal short segment of the peroneal artery with collateral flow into vessels in the pedal arch including the dorsalis pedis artery. After intervention the common femoral artery was patent with less than 15% residual stenosis. The SFA was patent with less than 20% residual stenosis. The popliteal artery was patent with less than 20% residual stenosis. The peroneal artery was patent with less than 10% residual stenosis and flow into the collateral vessels which supplied flow to the foot. Description of Procedure: The patient was brought to the Shot Grinder Operator and laid in supine position. After time out was performed his right groin was prepped and draped in normal sterile fashion. Ultrasound was used to identify the right common femoral artery and confirm patency. Once patency was confirmed the overlying skin and soft tissue was anesthetized with lidocaine. An 11 blade was used to make a small stab incision and then a curved hemostat was used to bluntly dissect down to the anterior surface of the right common femoral artery. A 21-gauge micropuncture needle was used with ultrasound guidance into the right common femoral artery and a 0.018 micropuncture wire was advanced to the artery. The needle was removed and a micropuncture sheath was placed by Seldinger technique. The dilator and wire were removed and a 0.035 Bentson wire was advanced to the aorta. The micropuncture sheath was removed and a 5 Tajik sheath was placed by Seldinger technique. An Omni Flush catheter was advanced to the aorta and after removing the Bentson wire a diagnostic aortogram was performed the previous described findings. The Bentson wire was reinserted and the wire and catheter were advanced up and over the bifurcation and a left lower extremity angiogram was performed the previously described findings. The Bentson wire was advanced into the popliteal artery at the level of the occlusion and the Omni Flush catheter was removed. The 5 Tajik sheath was then exchanged for a 7 Tajik 65 cm destination sheath by Seldinger technique. At this point the patient was systemically heparinized with 6000 units of heparin IV and this was redosed with 1000 units of heparin IV every 45 minutes into the completion of the case. I then used a Navicross catheter and a 0.018 Gladius Wire and was able to traverse the occluded popliteal artery and reenter into the peroneal artery which was confirmed by angiogram. I then performed angioplasty of the entire peroneal artery and tibial peroneal trunk with a 2.5 x 220 Jethro Balloon. I exchanged the Gladius Wire for a 0.014 Thruway Wire and perform atherectomy of the common femoral artery, SFA, and popliteal artery using a 2.4/3.4 JetInfopia Atherectomy Catheter with both blades down and blades up. I then performed angioplasty of the peroneal artery with a 3.0 x 100 Angiosculpt Balloon followed by angioplasty of the entire artery with a 4.0 x 150 IN.PACT Drug-Coated Balloon (x2) which resulted in less than 10% residual stenosis in the mid and distal segment of the artery. I advanced the Navicross catheter into the peroneal artery and exchanged the wire for the Bentson wire and performed angioplasty of the popliteal artery with a 5.0 x 150 IN.PACT Drug-Coated Balloon which resulted in less than 20% residual stenosis. I performed angioplasty of the SFA with 6.0 x 150 IN.PACT Drug-Coated Balloons (x3) which resulted in less than 20% residual stenosis. I performed angioplasty of the common femoral artery with a 7.0 x 80 IN.PACT Drug-Coated Balloon which resulted in less than 15% residual stenosis. There was sluggish flow within the distal popliteal artery and interrogation revealed approximately 85% residual stenosis within the proximal segment of the peroneal artery and this appeared to be from chronic thrombus. I advanced the Navicross into the peroneal artery and exchanged the Bentson wire for a 0.014 Spartacore Wire. I then advanced a 6 Tajik MP guide catheter into the tibial peroneal trunk and then stented this segment using a 4.0 x 38 mm and a 4.0 x 30 mm Medtronic Resolute [place] Drug-Eluting Stent. This resulted in less than 10% residual stenosis and brisk flow of contrast through the peroneal artery and into the foot through collateral vessels. At this point I pulled the sheath back into the right external iliac artery and remove the Spartacore Wire. I advanced the 0.035 J-wire into the aorta and then remove the sheath. I attempted closure of the right femoral arteriotomy with Pro-[place] Closure Devices x2. These both failed so I placed a 7 Tajik by 11 cm sheath into the right femoral artery. I transported the patient to the recovery area and obtained an Angio-Seal device. Once the Angio-Seal device was obtained I prepped the patient's groin and indwelling sheath in normal sterile fashion and used a 6 Tajik Angio-Seal to close the right femoral arteriotomy. A sterile dressing was then applied. The patient tolerated the procedure well and remained in the recovery area in stable condition.
[2021-03-29] MEDS ORDERED: APIXABAN 5 MG TAB PO SCH (15:00)
[2021-03-29 16:17] VITALS: BP 149/74
== END 2021-03-29 06:53 | disposition home or self-care (01) ==
LOC: CATHLABREC 06:52
PROVIDERS: ATTEND Surgery Vascular Surgery
DX: I70.245 Atherosclerosis of native arteries of left leg with ulceration of other part of foot (principal); Z87.891 Personal history of nicotine dependence; Z79.4 Long term (current) use of insulin; Z79.899 Other long term (current) drug therapy; Z98.890 Other specified postprocedural states
CPT/HCPCS: 36415; 37225; 37230; 76937; 80048; 85027; 85610; 85730; 99156; 99157; C1724; C1725; C1769; C1874; C1887; C2623; J0360; J0690; J1644; J1815; J2250; J3010; J3490; J7030; J7040; Q0162; Q9967

== ENCOUNTER 2021-04-10 08:25 | Outpatient (CLI) | payer BC, MEDICAID, MEDICARE ==
[2021-04-10] MEDS ORDERED: LIDOCAINE (4%) 40 MG/ML TOPICAL SOLN 50 ML BOTTLE TP SCH (09:00)
[2021-04-10] MEDS ORDERED: SILVER NITRATE APPLICATOR 1 EA TP SCH (10:00)
== END 2021-04-10 08:26 | disposition home or self-care (01) ==
LOC: WOUND 08:25
PROVIDERS: ATTEND Surgery
DX: T87.89 Other complications of amputation stump (principal); E11.621 Type 2 diabetes mellitus with foot ulcer; I70.262 Atherosclerosis of native arteries of extremities with gangrene, left leg; L97.524 Non-pressure chronic ulcer of other part of left foot with necrosis of bone; L97.511 Non-pressure chronic ulcer of other part of right foot limited to breakdown of skin; L89.626 Pressure-induced deep tissue damage of left heel; L97.421 Non-pressure chronic ulcer of left heel and midfoot limited to breakdown of skin; E11.69 Type 2 diabetes mellitus with other specified complication; M86.672 Other chronic osteomyelitis, left ankle and foot; E11.52 Type 2 diabetes mellitus with diabetic peripheral angiopathy with gangrene; E11.22 Type 2 diabetes mellitus with diabetic chronic kidney disease; I13.0 Hypertensive heart and chronic kidney disease with heart failure and stage 1 through stage 4 chronic kidney disease, or unspecified chronic kidney disease; I50.9 Heart failure, unspecified; N18.9 Chronic kidney disease, unspecified; I25.2 Old myocardial infarction; I25.10 Atherosclerotic heart disease of native coronary artery without angina pectoris; Z86.73 Personal history of transient ischemic attack (TIA), and cerebral infarction without residual deficits; Z87.891 Personal history of nicotine dependence; Z79.82 Long term (current) use of aspirin; Z79.4 Long term (current) use of insulin; Z95.0 Presence of cardiac pacemaker; Z95.1 Presence of aortocoronary bypass graft; Z79.01 Long term (current) use of anticoagulants; Y83.5 Amputation of limb(s) as the cause of abnormal reaction of the patient, or of later complication, without mention of misadventure at the time of the procedure

== ENCOUNTER 2021-04-16 10:42 | Day surgery (SDC) | payer BC, MEDICAID, MEDICARE ==
[2021-04-16 11:36] LABS: Hemoglobin 11.8 gm/dl (11.8-15.2); Mean Corpuscular HGB Conc 31 % (32-34); Mean Corpuscular Volume 82 fl (84-94); Platelet Count 356 K/mm3 (140-440); Red Blood Count 4.64 M/mm3 (3.65-5.03); Red Cell Distribution Width 17.1 % (13.2-15.2)
[2021-04-16 11:48] LABS: BUN/Creatinine Ratio 13; Blood Urea Nitrogen 12 mg/dL (9-20); Hemolysis Index 937
[2021-04-16] MEDS ORDERED: HEPARIN 10,000 UNITS/10 ML VIAL ONE (11:48)
[2021-04-16] MEDS ORDERED: HEPARIN/NS 5000 UNIT/500ML 1,000 ML IR ONE (11:48)
[2021-04-16] MEDS ORDERED: MIDAZOLAM 2 MG/2 ML INJ ONE ×3 (11:48→15:02)
[2021-04-16 11:49] LABS: INR 1.22 (0.87-1.13)
[2021-04-16] MEDS ORDERED: NITROGLYCERIN SYRINGE 3 ML ONE (11:49)
[2021-04-16] MEDS ORDERED: LIDOCAINE (2%) 20 MG/1 ML VIAL 20 ML MDV INFILTRATI ONE ×3 (11:49→12:48)
[2021-04-16] MEDS ORDERED: fentaNYL 100 MCG/2 ML INJ ONE ×3 (11:49→15:03)
[2021-04-16] MEDS ORDERED: VERAPAMIL 5 MG/2 ML INJ ONE (11:49)
[2021-04-16] MEDS ORDERED: ceFAZolin/Water 2 GM/20 ML 2 GM/20 ML SYRINGE IV ONE (11:50)
[2021-04-16] MEDS ORDERED: SODIUM CHLORIDE 0.9% 500 ML 500 ML IV SCH (12:00)
[2021-04-16] MEDS ORDERED: ceFAZolin/STERILE WATER 2 GM/20 ML SYRINGE IV ONE (12:37)
[2021-04-16] MEDS ORDERED: MIDAZOLAM 2 MG/2 ML INJ IV ONE ×8 (12:38→15:03)
[2021-04-16] MEDS ORDERED: fentaNYL 100 MCG/2 ML INJ IV ONE ×8 (12:39→15:04)
[2021-04-16] MEDS ORDERED: HEPARIN 10,000 UNITS/10 ML VIAL IV ONE ×3 (13:05→14:42)
[2021-04-16] MEDS ORDERED: HEPARIN/NS 5000 UNIT/500ML 500 ML IR ONE (13:15)
[2021-04-16] MEDS ORDERED: NITROGLYCERIN 600 MCG/3 ML SYRINGE ART-SHEATH ONE (15:07)
--- NOTE | 2021-04-16 15:31 | Short Stay Summary ---
Short Stay Documentation Date of service: 04/16/21 Narrative H&P: See H&P - History H&P: obtained from office - Allergies and Medications Current Medications: Allergies No Known Allergies Allergy (Verified 01/17/20 15:57) Home Medications Medication Instructions Recorded Confirmed Last Taken Type Dorzolamide HCl/Timolol Maleat 1 drop OU BID 02/18/19 04/16/21 04/15/21 History [Dorzolamide-Timolol Eye Drops] 1 drop AtorvaSTATin [Lipitor] 40 mg PO QHS #30 tablet 08/12/19 04/16/21 04/15/21 Rx 40 mg Clopidogrel [Plavix] 75 mg PO QDAY #30 tablet 08/12/19 04/16/21 04/15/21 Rx 75 mg Furosemide [Lasix TAB] 40 mg PO QDAY tablet 09/22/19 04/16/21 04/15/21 Rx 40 mg carvediloL [Coreg] 3.125 mg PO BID #60 tablet 09/22/19 04/16/21 04/15/21 Rx 3.125mg Nitroglycerin [Nitrostat] 0.4 mg SL Q5M PRN 10/17/19 04/16/21 Unknown History lisinopriL [Zestril TAB] 5 mg PO QDAY 10/17/19 04/16/21 04/15/21 History 5 mg oxyCODONE /ACETAMINOPHEN [Percocet 1 tab PO Q4H PRN 07/30/20 04/16/21 04/14/21 History 5/325 mg] 1 tab Lispro Insulin [HumaLOG] 0 unit SUB-Q ACHS 30 Days 08/02/20 04/16/21 Unknown Rx Potassium Chloride [K-Dur] 20 meq PO QDAY #30 tablet 08/02/20 04/16/21 04/15/21 Rx 20 meq Apixaban [Eliquis] 5 mg PO BID #60 tablet 03/29/21 04/16/21 04/15/21 Rx 5 mg Aspirin EC [Halfprin EC] 81 mg PO QDAY #90 tablet. 03/29/21 04/16/21 04/15/21 Rx 81 mg Gabapentin 400 mg PO Q8HR 03/29/21 04/16/21 04/15/21 History 400 mg Pantoprazole [Protonix] 40 mg PO QDAY #90 tablet 03/29/21 04/16/21 04/15/21 Rx 40 mg Spironolactone [Aldactone] 25 mg PO DAILY 03/29/21 04/16/21 04/15/21 History 25 mg Active Medications Sodium Chloride (Nacl 0.9% 500 Ml) 500 mls @ 50 mls/hr IV DIRECT THOMPSON - Brief post op/procedure progress note Date of procedure: 04/16/21 Pre-op diagnosis: Right Lower Extremity Critical Limb Ischemia Post-op diagnosis: same Procedure: 1. Ultrasound Guided Access Left Common Femoral Artery 2. Diagnostic Right Lower Extremity Angiogram (The Patient Had a Clinical Change) 3. Angioplasty of the Right Lateral Plantar Artery with a 3.0 x 12o NanoCross Balloon 4. Angioplasty and Stent of Right Posterior Tibial Artery with 2.5 x 220 Jethro Balloon, 3.5 x 100 Angiosculpt Balloon, 4.0 x 150 IN.PACT Drug-Coated Balloon (x3), and 4.0 x 38 mm Medtronic Resolute [place] Drug-Eluting Stent 5. Angioplasty of Right Popliteal Artery with 5.0 x 150 IN.PACT Drug-Coated Balloon 6. Angioplasty of Right SFA with 6.0 x 150 IN.PACT Drug-Coated Balloon 7. Closure of Left Femoral Arteriotomy with Pro-[place] Perclose Closure Device 8. Radiologic Supervision with Interpretation 9. Monitored Moderate Sedation (Total Anesthesia Time: 146 Minutes) Anesthesia: local, other (Monitored Moderate Sedation) Surgeon: URIAH JERRY Estimated blood loss: minimal Pathology: none Condition: stable - Disposition Condition at discharge: Good Disposition: 01 HOME / SELF CARE / HOMELESS Short Stay Discharge Plan Activity: other (No Strenuous Activity for 24 Hours.) Wound: remove dressing (In 48 Hours. After removing the dressing, it is okay to shower and wash the wound with soap and water but do not soak the wound in water for 2 weeks.) Follow up with: URIAH JERRY MD [Staff Physician] - 7 Days Prescriptions: Oxycodone HCl/Acetaminophen [Percocet 7.5/325 mg] 1 each PO Q6HR PRN #30 tablet PRN Reason: Pain
[2021-04-16] MEDS ORDERED: oxyCODONE /ACETAMINOPHEN 5-325MG TAB PO PRN (15:46)
--- NOTE | 2021-04-16 15:47 | Operative Report ---
Operative Report Operative Report: Date of Procedure: 04/16/2021 Pre-operative Diagnosis: Right Lower Extremity Critical Limb Ischemia Post-operative Diagnosis: Same Procedure(s): 1. Ultrasound Guided Access Left Common Femoral Artery 2. Diagnostic Right Lower Extremity Angiogram (The Patient Had a Clinical Change) 3. Angioplasty of the Right Lateral Plantar Artery with a 3.0 x 12o NanoCross Balloon 4. Angioplasty and Stent of Right Posterior Tibial Artery with 2.5 x 220 Jethro Balloon, 3.5 x 100 Angiosculpt Balloon, 4.0 x 150 IN.PACT Drug-Coated Balloon (x3), and 4.0 x 38 mm Medtronic Resolute Yosi Drug-Eluting Stent 5. Angioplasty of Right Popliteal Artery with 5.0 x 150 IN.PACT Drug-Coated Balloon 6. Angioplasty of Right SFA with 6.0 x 150 IN.PACT Drug-Coated Balloon 7. Closure of Left Femoral Arteriotomy with Pro-Mobile Perclose Closure Device 8. Radiologic Supervision with Interpretation 9. Monitored Moderate Sedation (Total Anesthesia Time: 146 Minutes) Surgeon: Flaquito Nair M.D. Static Balancer: None Anesthesia: Local/Monitored Moderate Sedation Total Anesthesia Time: 146 Minutes EBL: Minimal Counts: Correct Complications: None Condition: Stable Specimen: None Indication: The patient is a 65-year-old male with a history of peripheral vascular disease and bilateral transmetatarsal amputations that were performed approximately 1 year ago. He has had near complete healing of the amputations however there is a dehiscence of the right incision and despite local wound care the incision is failed to heal. He has had previous intervention of the right lower extremity to revascularize the leg. On physical exam he no longer has a palpable pulse and given the clinical picture he is in need of a diagnostic angiogram with possible intervention. He was given the risk, benefits, and alternative procedures and consented to the procedure. Angiographic Findings: The diagnostic right lower extremity angiogram revealed that the right common iliac artery was patent without evidence of flow-limiting stenosis. The external iliac artery was patent without evidence of flow-limiting stenosis. The hypogastric artery appeared to be occluded. There was approximately 30% stenosis of the common femoral artery however this was not flow-limiting. The profunda artery was patent without significant flow-limiting stenosis. The SFA had 20 to 30% stenosis however this was not flow-limiting. The proximal popliteal artery was patent without significant flow-limiting stenosis. There was an occlusion of the mid popliteal artery without reconstitution of the distal possible to artery. No tibial vessels were noted and there was no evidence of reconstitution of pedal vessels in the runoff. After intervention the mid and distal popliteal artery were patent with less than 20% residual stenosis. The tibial peroneal trunk was patent with less than 20% residual stenosis. The posterior tibial artery was patent with less than 15% residual stenosis. 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 The lateral plantar artery was patent with less than 20% residual stenosis and multiple collaterals in the hindfoot. Description of Procedure: The patient was brought to the Salon Coordinator and laid in supine position. After a timeout was performed the patient's left groin was prepped and draped in normal sterile fashion. Ultrasound was used to identify the left common femoral artery and confirm patency. Once patency was confirmed the overlying skin and soft tissue was anesthetized with lidocaine. An 11 blade was used to make a small stab incision and then a curved hemostat was used with ultrasound guidance to bluntly dissect down to the anterior surface of the left common femoral artery. A 21-gauge micropuncture needle was used ultrasound guidance in the left common femoral artery and a 0.018 micropuncture wire was advanced into the artery. The needle was removed and a micropuncture sheath was placed by Seldinger technique. The dilator and wire were removed and a 0.035 Bentson wire was advanced into the aorta. The micropuncture sheath was exchanged for a 5 [place]er sheath by Giovanna nataliia technique. I advanced an Omni Flush catheter into the aorta and then used a glide advantage wire with the Omni Flush catheter to advance up and over the bifurcation. I performed diagnostic angiogram of the iliofemoral segment with the previously described findings. I reinserted the wire and advanced the catheter into the common femoral artery and performed the remainder of the right lower extremity angiogram with the previously described findings. I advanced the wire to the level of the occlusion and exchanged the 5 [place]er sheath for 6 [place] 65 cm destination sheath by Seldinger technique. At this point I systemically heparinized the patient with 5000 units of heparin IV and this was redosed with 1000 units of heparin IV every 45 minutes into the completion of the case. I then used a Navicross catheter and 0.018V 18 wire and was able to traverse the occluded popliteal artery and tibial peroneal trunk and into the posterior tibial artery. I was then able to advance the wire into the lateral plantar artery and exchanged the Navicross catheter for 0.018 crossing catheter. I advanced the catheter into the lateral plantar artery and confirm position of the wire by angiogram. I reinserted the wire and performed angioplasty of the posterior tibial artery using a 2.5 x 220 Jethro Balloon. I reinserted the crossing catheter and then exchanged the V 18 wire for 0.014 Choice PT wire and performed angioplasty of the entire posterior tibial artery using a 3.5 x 100 Angiosculpt Balloon. Also uses balloon perform angioplasty of the tibial peroneal trunk as well as the popliteal artery. I then advanced a 3.5 x 120 NanoCross Balloon into the lateral plantar artery and performed angioplasty which resulted in less than 20% residual stenosis. I performed angioplasty of the posterior tibial artery using a 4.0 x 150 IN.PACT Drug-Coated Balloon (x3). This resulted in less than 15% residual stenosis however there was a pseudoaneurysm in the mid posterior tibial artery. I readvanced a 4 mm balloon into the artery and inflated this for 10 minutes however the pseudoaneurysm was persistent but sluggish. I decided to treat the below-knee and above-knee popliteal artery prior to addressing the pseudoaneurysm again. I performed angioplasty of the tibioperoneal trunk and below-knee popliteal artery with a 5.0 x 150 IN.PACT Drug-Coated Balloon which resulted in less than 20% residual stenosis followed by angioplasty of the above-knee popliteal artery with a 6.0 x 150 IN.PACT Drug-Coated Balloon which resulted in less than 20% residual stenosis. At this point I advanced the 6 [place]er MP guide catheter into the posterior tibial artery and placed a 4.0 x 38 mm Medtronic Resolute Yosi Drug- Eluting Stent and deployed this across the area of pseudoaneurysm to give a matrix for the artery to remodel. I then inflated the balloon and then inflated blood pressure cuff at the level of the pseudoaneurysm to give both an internal and external compression of the pseudoaneurysm. The blood pressure cuff was inflated to 210 mmHg which was approximately 20 mmHg greater than the patient systolic blood pressure. I left this inflated for approximately 8 minutes and then released the cuff followed by deflating the balloon. The pseudoaneurysm persisted but has sluggish flow. I injected 600 mcg of nitroglycerin into the foot and performed a final angiogram which revealed brisk flow of contrast throughout the posterior tibial artery despite the pseudoaneurysm. At this point I decided to finish the case with the plan to bring the patient back in 1 week for an ultrasound to reevaluate the pseudoaneurysm. I removed the 0.014 wire and pulled the sheath back into the left external iliac artery. I advanced a Bentson wire to the aorta and remove the sheath. I then used a Pro-glide closure device to close the left femoral arteriotomy. A sterile dressing was then applied to the groin entry site and the patient was transported to the recovery area in stable condition.
[2021-04-16 16:31] VITALS: BP 154/82
== END 2021-04-16 16:45 | disposition home or self-care (01) ==
LOC: CATHLABREC 10:42
PROVIDERS: ATTEND Surgery Vascular Surgery
DX: I70.245 Atherosclerosis of native arteries of left leg with ulceration of other part of foot (principal); I11.0 Hypertensive heart disease with heart failure; I50.9 Heart failure, unspecified; I25.10 Atherosclerotic heart disease of native coronary artery without angina pectoris; I48.91 Unspecified atrial fibrillation; E78.00 Pure hypercholesterolemia, unspecified; J44.9 Chronic obstructive pulmonary disease, unspecified; N40.0 Benign prostatic hyperplasia without lower urinary tract symptoms; E11.9 Type 2 diabetes mellitus without complications; E66.9 Obesity, unspecified; Z87.891 Personal history of nicotine dependence; Z79.82 Long term (current) use of aspirin; Z79.899 Other long term (current) drug therapy; Z98.890 Other specified postprocedural states
CPT/HCPCS: 36415; 37224; 37230; 75710; 76937; 80048; 84132; 85027; 85610; 99156; 99157; C1725; C1760; C1769; C1874; C1887; C2623; J0690; J1644; J1815; J2250; J3010; J3490; J7040; Q9967

== ENCOUNTER 2021-04-24 08:32 | Outpatient (CLI) | payer BC, MEDICAID, MEDICARE ==
[2021-04-24] MEDS ORDERED: LIDOCAINE (4%) 40 MG/ML TOPICAL SOLN 50 ML BOTTLE TP SCH (09:00)
== END 2021-04-24 08:33 | disposition home or self-care (01) ==
LOC: WOUND 08:32
PROVIDERS: ATTEND Surgery
DX: T87.89 Other complications of amputation stump (principal); E11.621 Type 2 diabetes mellitus with foot ulcer; I70.262 Atherosclerosis of native arteries of extremities with gangrene, left leg; L97.524 Non-pressure chronic ulcer of other part of left foot with necrosis of bone; L97.511 Non-pressure chronic ulcer of other part of right foot limited to breakdown of skin; L89.626 Pressure-induced deep tissue damage of left heel; L97.421 Non-pressure chronic ulcer of left heel and midfoot limited to breakdown of skin; E11.69 Type 2 diabetes mellitus with other specified complication; M86.672 Other chronic osteomyelitis, left ankle and foot; E11.52 Type 2 diabetes mellitus with diabetic peripheral angiopathy with gangrene; E11.22 Type 2 diabetes mellitus with diabetic chronic kidney disease; I13.0 Hypertensive heart and chronic kidney disease with heart failure and stage 1 through stage 4 chronic kidney disease, or unspecified chronic kidney disease; I50.9 Heart failure, unspecified; N18.9 Chronic kidney disease, unspecified; I25.2 Old myocardial infarction; I25.10 Atherosclerotic heart disease of native coronary artery without angina pectoris; Z86.73 Personal history of transient ischemic attack (TIA), and cerebral infarction without residual deficits; Z87.891 Personal history of nicotine dependence; Z79.82 Long term (current) use of aspirin; Z79.4 Long term (current) use of insulin; Z95.0 Presence of cardiac pacemaker; Z95.1 Presence of aortocoronary bypass graft; Z79.01 Long term (current) use of anticoagulants; Y83.5 Amputation of limb(s) as the cause of abnormal reaction of the patient, or of later complication, without mention of misadventure at the time of the procedure

== ENCOUNTER 2021-05-15 08:55 | Outpatient (CLI) | payer BC, MEDICARE, MEDICAID ==
[2021-05-15] MEDS ORDERED: LIDOCAINE (4%) 40 MG/ML TOPICAL SOLN 50 ML BOTTLE TP ONE (09:28)
== END 2021-05-15 08:56 | disposition home or self-care (01) ==
LOC: WOUND 08:55
PROVIDERS: ATTEND Surgery
DX: T87.89 Other complications of amputation stump (principal); E11.621 Type 2 diabetes mellitus with foot ulcer; I70.262 Atherosclerosis of native arteries of extremities with gangrene, left leg; L97.524 Non-pressure chronic ulcer of other part of left foot with necrosis of bone; L97.511 Non-pressure chronic ulcer of other part of right foot limited to breakdown of skin; L89.626 Pressure-induced deep tissue damage of left heel; L97.421 Non-pressure chronic ulcer of left heel and midfoot limited to breakdown of skin; E11.69 Type 2 diabetes mellitus with other specified complication; M86.672 Other chronic osteomyelitis, left ankle and foot; E11.52 Type 2 diabetes mellitus with diabetic peripheral angiopathy with gangrene; E11.22 Type 2 diabetes mellitus with diabetic chronic kidney disease; I13.0 Hypertensive heart and chronic kidney disease with heart failure and stage 1 through stage 4 chronic kidney disease, or unspecified chronic kidney disease; I50.9 Heart failure, unspecified; N18.9 Chronic kidney disease, unspecified; I25.2 Old myocardial infarction; I25.10 Atherosclerotic heart disease of native coronary artery without angina pectoris; Z86.73 Personal history of transient ischemic attack (TIA), and cerebral infarction without residual deficits; Z87.891 Personal history of nicotine dependence; Z79.82 Long term (current) use of aspirin; Z79.4 Long term (current) use of insulin; Z95.0 Presence of cardiac pacemaker; Z95.1 Presence of aortocoronary bypass graft; Z79.01 Long term (current) use of anticoagulants; Y83.5 Amputation of limb(s) as the cause of abnormal reaction of the patient, or of later complication, without mention of misadventure at the time of the procedure

== ENCOUNTER 2021-05-22 08:19 | Outpatient (CLI) | payer BC, MEDICARE, MEDICAID ==
[2021-05-22] MEDS ORDERED: LIDOCAINE (4%) 40 MG/ML TOPICAL SOLN 50 ML BOTTLE TP ONE (08:38)
== END 2021-05-22 08:20 | disposition home or self-care (01) ==
LOC: WOUND 08:19
PROVIDERS: ATTEND Surgery
DX: T87.89 Other complications of amputation stump (principal); E11.621 Type 2 diabetes mellitus with foot ulcer; L97.524 Non-pressure chronic ulcer of other part of left foot with necrosis of bone; E11.69 Type 2 diabetes mellitus with other specified complication; M86.672 Other chronic osteomyelitis, left ankle and foot; E11.22 Type 2 diabetes mellitus with diabetic chronic kidney disease; I13.0 Hypertensive heart and chronic kidney disease with heart failure and stage 1 through stage 4 chronic kidney disease, or unspecified chronic kidney disease; I50.9 Heart failure, unspecified; N18.9 Chronic kidney disease, unspecified; E11.51 Type 2 diabetes mellitus with diabetic peripheral angiopathy without gangrene; I25.2 Old myocardial infarction; Z86.73 Personal history of transient ischemic attack (TIA), and cerebral infarction without residual deficits; Z95.1 Presence of aortocoronary bypass graft; Z95.0 Presence of cardiac pacemaker; Z87.891 Personal history of nicotine dependence; Z79.82 Long term (current) use of aspirin; Z79.4 Long term (current) use of insulin; Z79.899 Other long term (current) drug therapy; Y83.5 Amputation of limb(s) as the cause of abnormal reaction of the patient, or of later complication, without mention of misadventure at the time of the procedure

== ENCOUNTER 2021-05-29 08:29 | Outpatient (CLI) | payer BC, MEDICARE, MEDICAID ==
[2021-05-29] MEDS ORDERED: LIDOCAINE (4%) 40 MG/ML TOPICAL SOLN 50 ML BOTTLE TP ONE (08:37)
== END 2021-05-29 08:30 | disposition home or self-care (01) ==
LOC: WOUND 08:29
PROVIDERS: ATTEND Surgery
DX: T87.89 Other complications of amputation stump (principal); E11.621 Type 2 diabetes mellitus with foot ulcer; L97.524 Non-pressure chronic ulcer of other part of left foot with necrosis of bone; E11.69 Type 2 diabetes mellitus with other specified complication; M86.672 Other chronic osteomyelitis, left ankle and foot; E11.22 Type 2 diabetes mellitus with diabetic chronic kidney disease; I13.0 Hypertensive heart and chronic kidney disease with heart failure and stage 1 through stage 4 chronic kidney disease, or unspecified chronic kidney disease; I50.9 Heart failure, unspecified; N18.9 Chronic kidney disease, unspecified; E11.51 Type 2 diabetes mellitus with diabetic peripheral angiopathy without gangrene; I25.2 Old myocardial infarction; Z86.73 Personal history of transient ischemic attack (TIA), and cerebral infarction without residual deficits; Z95.1 Presence of aortocoronary bypass graft; Z95.0 Presence of cardiac pacemaker; Z87.891 Personal history of nicotine dependence; Z79.82 Long term (current) use of aspirin; Z79.4 Long term (current) use of insulin; Z79.899 Other long term (current) drug therapy; Y83.5 Amputation of limb(s) as the cause of abnormal reaction of the patient, or of later complication, without mention of misadventure at the time of the procedure

== ENCOUNTER 2021-06-05 09:24 | Outpatient (CLI) | payer BC, MEDICARE, MEDICAID | END 2021-06-05 09:25 | disposition home or self-care (01) | LOC: WOUND 09:24 | PROVIDERS: ATTEND Surgery | DX: T87.89 Other complications of amputation stump (principal); E11.621 Type 2 diabetes mellitus with foot ulcer; L97.524 Non-pressure chronic ulcer of other part of left foot with necrosis of bone; E11.69 Type 2 diabetes mellitus with other specified complication; M86.672 Other chronic osteomyelitis, left ankle and foot; E11.22 Type 2 diabetes mellitus with diabetic chronic kidney disease; I13.0 Hypertensive heart and chronic kidney disease with heart failure and stage 1 through stage 4 chronic kidney disease, or unspecified chronic kidney disease; I50.9 Heart failure, unspecified; N18.9 Chronic kidney disease, unspecified; E11.51 Type 2 diabetes mellitus with diabetic peripheral angiopathy without gangrene; I25.2 Old myocardial infarction; Z86.73 Personal history of transient ischemic attack (TIA), and cerebral infarction without residual deficits; Z95.1 Presence of aortocoronary bypass graft; Z95.0 Presence of cardiac pacemaker; Z87.891 Personal history of nicotine dependence; Z79.82 Long term (current) use of aspirin; Z79.4 Long term (current) use of insulin; Z79.899 Other long term (current) drug therapy; Y83.5 Amputation of limb(s) as the cause of abnormal reaction of the patient, or of later complication, without mention of misadventure at the time of the procedure ==

== ENCOUNTER 2021-06-19 08:26 | Outpatient (CLI) | payer BC, MEDICARE, MEDICAID ==
[2021-06-19] MEDS ORDERED: LIDOCAINE (4%) 40 MG/ML TOPICAL SOLN 50 ML BOTTLE TP ONE (08:33)
== END 2021-06-19 08:27 | disposition home or self-care (01) ==
LOC: WOUND 08:26
PROVIDERS: ATTEND Surgery
DX: T87.89 Other complications of amputation stump (principal); E11.621 Type 2 diabetes mellitus with foot ulcer; L97.524 Non-pressure chronic ulcer of other part of left foot with necrosis of bone; E11.69 Type 2 diabetes mellitus with other specified complication; M86.672 Other chronic osteomyelitis, left ankle and foot; E11.22 Type 2 diabetes mellitus with diabetic chronic kidney disease; I13.0 Hypertensive heart and chronic kidney disease with heart failure and stage 1 through stage 4 chronic kidney disease, or unspecified chronic kidney disease; I50.9 Heart failure, unspecified; N18.9 Chronic kidney disease, unspecified; E11.51 Type 2 diabetes mellitus with diabetic peripheral angiopathy without gangrene; I25.2 Old myocardial infarction; Z86.73 Personal history of transient ischemic attack (TIA), and cerebral infarction without residual deficits; Z95.1 Presence of aortocoronary bypass graft; Z95.0 Presence of cardiac pacemaker; Z87.891 Personal history of nicotine dependence; Z79.82 Long term (current) use of aspirin; Z79.4 Long term (current) use of insulin; Z79.899 Other long term (current) drug therapy; Y83.5 Amputation of limb(s) as the cause of abnormal reaction of the patient, or of later complication, without mention of misadventure at the time of the procedure

== ENCOUNTER 2021-06-26 10:05 | Day surgery (SDC) | payer BC, MEDICARE, MEDICAID ==
[~2021-06-26 10:05] MED LIST changes: -LACTATED RINGERS 1,000 ML IV SCH; +SODIUM CHLORIDE 0.9% 1000 ML 1,000 ML IV SCH; -ceFAZolin/Water 2 GM/20 ML 2 GM/20 ML SYRINGE IV NR
[2021-06-26] MEDS ORDERED: HEPARIN 5,000 UNIT/1 ML VIAL SUB-Q SCH (11:00)
[2021-06-26] MEDS ORDERED: ceFAZolin/STERILE WATER 2 GM/20 ML SYRINGE IV SCH (11:00)
--- NOTE | 2021-06-26 11:10 | Anesthesia Consultation ---
Anesthesia Consult and Med Hx Date of service: 06/26/21 - Airway Anesthetic Teeth Evaluation: Poor (denies loose teeth) ROM Head & Neck: Adequate Mental/Hyoid Distance: Adequate Mallampati Class: Class III Intubation Access Assessment: Possibly Difficult - Pre-Operative Health Status ASA Pre-Surgery Classification: ASA4 Proposed Anesthetic Plan: MAC Nerve Block: Ank - Pulmonary Hx Smoking: Yes (former smoker) SOB: Yes (chronic VALDEZ, stable) Home Oxygen Therapy: No - Cardiovascular System Hx Hypertension: Yes Hx Coronary Artery Disease: Yes (iCMP EF 15% (patient and state EF improved to 30%)) Hx Heart Attack/AMI: Yes (2019 s/p CABG) Hx Cardia Arrhythmia: Yes Hx Pacemaker: Yes Hx Internal Defibrillator: Yes Hx Peripheral Vascular Disease: Yes (anticoagulants held since 06/21/21) - Central Nervous System Hx Seizures: Yes CVA: Yes (2019) - Endocrine Hx Renal Disease: No Hx Liver Disease: No Hx Insulin Dependent Diabetes: No Hx Non-Insulin Dependent Diabetes: No Hx Thyroid Disease: No - Additional Comments Anesthesia Medical History Comments: No hx anesthetic complications. Previous similar surgeries done with ankle block which patient states worked well. Preop cardiology eval on chart reviewed.
--- NOTE | 2021-06-26 11:11 | Anesthesia Day of Surgery ---
Anesthesia Day of Surgery - Day of Surgery Patient Examined: Yes Patient H&P Reviewed: Yes Patient is NPO: Yes Beta Blockers: Yes Cardiac Clearance: Yes
[2021-06-26] MEDS ORDERED: BUPIVACAINE/PF (0.5%) 5 MG/1 ML 30 ML VIAL INFILTRATI ONE ×2 (11:14→12:20)
[2021-06-26 11:20] LABS: Basophils # (Auto) 0.1 K/mm3 (0.0-0.1); Basophils % (Auto) 1.8 % (0.0-1.8); Eosinophils # (Auto) 0.1 K/mm3 (0.0-0.4); Eosinophils % (Auto) 2.5 % (0.0-4.3); Hematocrit 35.5 % (35.5-45.6); Hemoglobin 11.1 gm/dl (11.8-15.2); Lymphocytes # (Auto) 2.4 K/mm3 (1.2-5.4); Lymphocytes % (Auto) 40.7 % (13.4-35.0); Mean Corpuscular HGB Conc 31 % (32-34); Mean Corpuscular Volume 80 fl (84-94); Monocytes # (Auto) 0.5 K/mm3 (0.0-0.8); Platelet Count 247 K/mm3 (140-440); Red Blood Count 4.45 M/mm3 (3.65-5.03); Red Cell Distribution Width 15.8 % (13.2-15.2)
[2021-06-26 11:32] LABS: BUN/Creatinine Ratio 13; Blood Urea Nitrogen 12 mg/dL (9-20); Calcium 9.6 mg/dL (8.4-10.2); Hemolysis Index 4
[2021-06-26] MEDS ORDERED: LIDOCAINE (1%) 10 MG/1 ML VIAL 20 ML MDV ONE ×2 (12:19→13:01)
[2021-06-26] MEDS ORDERED: MIDAZOLAM 5 MG/5 ML INJ MDV IV ONE (13:23)
--- NOTE | 2021-06-26 14:28 | Procedure Note ---
Date of procedure: 06/26/21 Pre-op diagnosis: Osteomyelitis of left 1st metatarsal diaphysis Post-op diagnosis: other (Also, osteomyelitis of the medial cuneiform and middle cuneiform) Procedure: Amputation of the remaining left 1st metatarsal and medial cuneiform Description of procedure: Pt was positioned supine on the OR table. A left ankle block was performed. The left foot was prepped and draped. An incision was made over the remaining 1st metatarsal diaphysis. The shaft of the diaphysis and base of the metatarsal was also grossly involved with osteomyelitis. These two bones were removed with scissor dissection. Removal of the infected medial cuneiform revealed that the medial aspect of the middle cuneiform was also involved with osteomyelitis. Hemostasis was obtained with a suture ligature of 0-Vicryl and the Bovie. Wound was irrigated with warm saline. Wound was packed open with a dilute Betadine moistened Kerlix roll followed by dry fluffs, Kerlix wrap and Coban wrap. Pt tolerated the procedure well. Pt was taken to PACU in stable condition. Anesthesia: regional Surgeon: LUIS ARNOLD Estimated blood loss: 50-100ml Pathology: list (1) Remaining left 1st metatarsal bone 2) Left medial cuneiform) Specimen disposition: to lab Condition: stable Disposition: PACU
[2021-06-26] MEDS ORDERED: oxyCODONE /ACETAMINOPHEN 5-325MG TAB PO PRN (14:35)
[2021-06-26 15:48] VITALS: BP 154/79
== END 2021-06-26 15:30 | disposition home or self-care (01) ==
LOC: OR 10:05
PROVIDERS: ATTEND Surgery
DX: M86.8X6 Other osteomyelitis, lower leg (principal); H40.9 Unspecified glaucoma; I11.0 Hypertensive heart disease with heart failure; I50.9 Heart failure, unspecified; E78.00 Pure hypercholesterolemia, unspecified; I48.91 Unspecified atrial fibrillation; F41.9 Anxiety disorder, unspecified; Z79.899 Other long term (current) drug therapy; Z79.82 Long term (current) use of aspirin; Z87.891 Personal history of nicotine dependence; Z95.1 Presence of aortocoronary bypass graft; Z86.718 Personal history of other venous thrombosis and embolism; Z90.49 Acquired absence of other specified parts of digestive tract; Z87.440 Personal history of urinary (tract) infections; Z98.890 Other specified postprocedural states; Z86.73 Personal history of transient ischemic attack (TIA), and cerebral infarction without residual deficits
CPT/HCPCS: 28810; 36415; 64417; 80048; 82962; 85025; 88304; 88311; J0690; J1644; J2250; J3490; J7030; 64450; 88302; Q0162

== ENCOUNTER 2021-07-10 08:43 | Outpatient (CLI) | payer BC, MEDICARE, MEDICAID ==
[2021-07-10] MEDS ORDERED: LIDOCAINE (4%) 40 MG/ML TOPICAL SOLN 50 ML BOTTLE TP ONE (08:50)
[2021-07-10] MEDS ORDERED: SODIUM HYPOCHLORITE, DAKIN'S FULL STRENGTH (0.5%) 473 ML TOPICAL SOLN TP ONE (10:55)
== END 2021-07-10 08:44 | disposition home or self-care (01) ==
LOC: WOUND 08:43
PROVIDERS: ATTEND Surgery
DX: T87.89 Other complications of amputation stump (principal); E11.621 Type 2 diabetes mellitus with foot ulcer; L97.524 Non-pressure chronic ulcer of other part of left foot with necrosis of bone; E11.69 Type 2 diabetes mellitus with other specified complication; M86.672 Other chronic osteomyelitis, left ankle and foot; E11.22 Type 2 diabetes mellitus with diabetic chronic kidney disease; I13.0 Hypertensive heart and chronic kidney disease with heart failure and stage 1 through stage 4 chronic kidney disease, or unspecified chronic kidney disease; I50.9 Heart failure, unspecified; N18.9 Chronic kidney disease, unspecified; E11.51 Type 2 diabetes mellitus with diabetic peripheral angiopathy without gangrene; I25.2 Old myocardial infarction; Z86.73 Personal history of transient ischemic attack (TIA), and cerebral infarction without residual deficits; Z95.1 Presence of aortocoronary bypass graft; Z95.0 Presence of cardiac pacemaker; Z87.891 Personal history of nicotine dependence; Z79.82 Long term (current) use of aspirin; Z79.4 Long term (current) use of insulin; Z79.899 Other long term (current) drug therapy; Y83.5 Amputation of limb(s) as the cause of abnormal reaction of the patient, or of later complication, without mention of misadventure at the time of the procedure

== ENCOUNTER 2021-07-22 10:54 | Emergency (ER) | payer BC, MEDICARE, MEDICAID ==
--- NOTE | 2021-07-22 11:11 | Emergency Department Report ---
ED Seizure HPI - General Chief Complaint: Seizure Stated Complaint: SEIZURE Time Seen by Provider: 07/22/21 11:08 Source: EMS, old records reviewed Mode of arrival: Stretcher Limitations: No Limitations - History of Present Illness Initial Comments: 65-year-old -[place] male with history of CAD s/p CABG, [place], CVA with right-sided residual deficits, HTN, HLD, seizure, glaucoma, legally blind, bilateral toe amputations presents to the hospital presents to the hospital after having a seizure. Patient states history of seizures last seizure appr oximately 1 year ago. He states he used to see a neurologist but he has since moved and therefore he is not currently taking any seizure medication. He denies any physical complaints at this time other than ongoing left foot pain. Patient had a recent amputation of the remaining left 1st metatarsal and medial cuneiform performed by Dr. Corona on June 26. He is obtaining q. Thursday and Thursday wound dressing changes at the home and is scheduled to follow-up with Dr. Corona in the office in 2 days. He denies any fever. Patient states he is chronically not ambulatory - Related Data Home Medications Medication Instructions Recorded Confirmed Last Taken Nitroglycerin [Nitrostat] 0.4 mg SL Q5M PRN 10/17/19 06/18/21 Unknown lisinopriL [Zestril TAB] 5 mg PO QDAY 10/17/19 06/26/21 06/26/21 08:00 Gabapentin 400 mg PO Q8HR 03/29/21 06/26/21 06/25/21 Spironolactone [Aldactone] 25 mg PO DAILY 03/29/21 06/18/21 06/21/21 Furosemide [Lasix TAB] 40 mg PO QDAY PRN 06/18/21 06/18/21 06/21/21 Lispro Insulin [HumaLOG] 0 unit SUB-Q PRN PRN 06/18/21 06/18/21 03/20/21 Oxycodone HCl/Acetaminophen 1 each PO Q6H PRN 06/18/21 06/18/21 06/21/21 [Oxycodone-Acetaminophen 10-325] Previous Rx's Medication Instructions Recorded Last Taken Type AtorvaSTATin [Lipitor] 40 mg PO QHS #30 tablet 08/12/19 06/21/21 Rx Clopidogrel [Plavix] 75 mg PO QDAY #30 tablet 08/12/19 06/21/21 Rx carvediloL [Coreg] 3.125 mg PO BID #60 tablet 09/22/19 06/21/21 Rx Apixaban [Eliquis] 5 mg PO BID #60 tablet 03/29/21 06/21/21 Rx Aspirin EC [Halfprin EC] 81 mg PO QDAY #90 tablet. 03/29/21 06/21/21 Rx Pantoprazole [Protonix TAB] 40 mg PO QDAY #90 tablet 03/29/21 06/21/21 Rx levETIRAcetam [Keppra TAB] 500 mg PO BID #60 tablet 07/22/21 Unknown Rx Allergies Allergy/AdvReac Type Severity Reaction Status Date / Time No Known Allergies Allergy Verified 07/22/21 10:57 ED Review of Systems ROS: Stated complaint: SEIZURE Other details as noted in HPI Comment: All other systems reviewed and negative ED Past Medical Hx - Past Medical History Hx Hypertension: Yes Hx CVA: Yes (right sided weakness from previous stroke) Hx Heart Attack/AMI: Yes (2019 s/p CABG) Hx Congestive Heart Failure: Yes (Dx 2018) Hx Diabetes: Yes (DIET CONTROLLED. DOES USE INSULIN PRN.) Hx Deep Vein Thrombosis: Yes (RIGHT AND LEFT LEG) Hx Liver Disease: No Hx Renal Disease: No Hx Seizures: Yes Hx COPD: No (noted in chart however patient and deny. No inhalers in med list.) Hx Tuberculosis: No Hx HIV: No Additional medical history: Glaucoma. Legally blind - Surgical History Hx Open Heart Surgery: Yes (CABG 2018. DEFIB/AICD 07/2020.) Hx Pacemaker: Yes Hx Internal Defibrillator: Yes Hx Cholecystectomy: Yes Additional Surgical History: Hernia, CABG 4 vessel - Social History Smoking Status: Former Smoker - Medications Home Medications: Home Medications Medication Instructions Recorded Confirmed Last Taken Type AtorvaSTATin [Lipitor] 40 mg PO QHS #30 tablet 08/12/19 06/18/21 06/21/21 Rx Clopidogrel [Plavix] 75 mg PO QDAY #30 tablet 08/12/19 06/18/21 06/21/21 Rx carvediloL [Coreg] 3.125 mg PO BID #60 tablet 09/22/19 06/18/21 06/21/21 Rx Nitroglycerin [Nitrostat] 0.4 mg SL Q5M PRN 10/17/19 06/18/21 Unknown History lisinopriL [Zestril TAB] 5 mg PO QDAY 10/17/19 06/26/21 06/26/21 08:00 History Apixaban [Eliquis] 5 mg PO BID #60 tablet 03/29/21 06/18/21 06/21/21 Rx Aspirin EC [Halfprin EC] 81 mg PO QDAY #90 tablet. 03/29/21 06/18/21 06/21/21 Rx Gabapentin 400 mg PO Q8HR 03/29/21 06/26/21 06/25/21 History Pantoprazole [Protonix TAB] 40 mg PO QDAY #90 tablet 03/29/21 06/18/21 06/21/21 Rx Spironolactone [Aldactone] 25 mg PO DAILY 03/29/21 06/18/21 06/21/21 History Furosemide [Lasix TAB] 40 mg PO QDAY PRN 06/18/21 06/18/21 06/21/21 History Lispro Insulin [HumaLOG] 0 unit SUB-Q PRN PRN 06/18/21 06/18/21 03/20/21 History Oxycodone HCl/Acetaminophen 1 each PO Q6H PRN 06/18/21 06/18/21 06/21/21 History [Oxycodone-Acetaminophen 10-325] levETIRAcetam [Keppra TAB] 500 mg PO BID #60 tablet 07/22/21 Unknown Rx ED Physical Exam - General Limitations: No Limitations - Other Other exam information: General: No acute distress Head: Atraumatic Eyes: normal appearance ENT: Moist mucous membranes Neck: Normal appearance, no midline tenderness Chest: Clear to auscultation bilaterally CV: Regular rate and rhythm Abdomen: Soft, normal bowel sounds, nontender, nondistended, no rebound or g uarding Back: Normal inspection Extremity: Left foot wound dressing removed. Medial anterior foot wound noted with gauze pack dressing. Bloody serosanguineous drainage noted without purulence or odor. Nurse instructed to place a new dressing Neuro: Alert O x 3, no facial asymmetry, speech clear, mild drift right leg. Equal handgrip. No drift to either bilateral upper or left lower extremity Psych: Appropriate behavior Skin: No rash ED Course Vital Signs 04/04/22 04/04/22 04/04/22 10:55 11:21 11:23 Pulse Rate 73 85 Respiratory 33 H Rate Blood Pressure Blood Pressure 140/80 [Left] O2 Sat by Pulse 98 93 Oximetry 07/22/21 07/22/21 07/22/21 11:25 11:27 11:29 Pulse Rate 79 83 82 Respiratory 22 17 12 Rate Blood Pressure 132/62 132/62 132/62 Blood Pressure [Left] O2 Sat by Pulse Oximetry 07/22/21 07/22/21 07/22/21 11:31 11:33 11:35 Pulse Rate 78 75 80 Respiratory 16 14 20 Rate Blood Pressure 132/62 132/62 132/62 Blood Pressure [Left] O2 Sat by Pulse 99 100 99 Oximetry 07/22/21 07/22/21 07/22/21 11:37 11:39 11:41 Pulse Rate 79 80 76 Respiratory 24 24 18 Rate Blood Pressure 132/62 132/62 132/62 Blood Pressure [Left] O2 Sat by Pulse 99 99 99 Oximetry 07/22/21 07/22/21 07/22/21 11:43 11:45 11:47 Pulse Rate 84 77 73 Respiratory 25 H 20 22 Rate Blood Pressure 132/62 132/62 132/62 Blood Pressure [Left] O2 Sat by Pulse 98 99 99 Oximetry 07/22/21 07/22/21 07/22/21 11:49 11:51 11:53 Pulse Rate 74 73 74 Respiratory 15 18 14 Rate Blood Pressure 132/62 132/62 132/62 Blood Pressure [Left] O2 Sat by Pulse 99 98 99 Oximetry 07/22/21 07/22/21 07/22/21 11:54 11:55 11:57 Pulse Rate 70 70 74 Respiratory 21 20 16 Rate Blood Pressure 85/39 85/39 85/39 Blood Pressure [Left] O2 Sat by Pulse 96 94 96 Oximetry 07/22/21 07/22/21 07/22/21 11:59 12:01 12:03 Pulse Rate 75 75 79 Respiratory 15 16 16 Rate Blood Pressure 85/39 85/39 85/39 Blood Pressure [Left] O2 Sat by Pulse 97 96 97 Oximetry 07/22/21 07/22/21 07/22/21 12:05 12:07 12:09 Pulse Rate 74 79 74 Respiratory 17 13 20 Rate Blood Pressure 85/39 85/39 85/39 Blood Pressure [Left] O2 Sat by Pulse 99 99 97 Oximetry 07/22/21 07/22/21 07/22/21 12:11 12:13 12:15 Pulse Rate 71 81 76 Respiratory 22 14 14 Rate Blood Pressure 85/39 85/39 85/39 Blood Pressure [Left] O2 Sat by Pulse 99 99 100 Oximetry 07/22/21 07/22/21 07/22/21 12:16 12:17 12:19 Pulse Rate 79 80 83 Respiratory 14 24 28 H Rate Blood Pressure 107/70 107/70 107/70 Blood Pressure [Left] O2 Sat by Pulse 100 99 97 Oximetry 07/22/21 07/22/21 07/22/21 12:21 12:23 12:24 Pulse Rate 82 79 74 Respiratory 15 16 18 Rate Blood Pressure 107/70 107/70 118/55 Blood Pressure [Left] O2 Sat by Pulse 97 100 99 Oximetry 07/22/21 07/22/21 07/22/21 12:25 12:27 12:29 Pulse Rate 79 75 77 Respiratory 20 16 22 Rate Blood Pressure 118/55 118/55 118/55 Blood Pressure [Left] O2 Sat by Pulse 99 99 97 Oximetry 07/22/21 07/22/21 07/22/21 12:31 12:33 12:35 Pulse Rate 73 81 76 Respiratory 18 16 16 Rate Blood Pressure 118/55 118/55 118/55 Blood Pressure [Left] O2 Sat by Pulse 98 98 99 Oximetry 07/22/21 07/22/21 07/22/21 12:37 12:39 12:41 Pulse Rate 77 77 80 Respiratory 13 13 14 Rate Blood Pressure 118/55 118/55 118/55 Blood Pressure [Left] O2 Sat by Pulse 99 99 99 Oximetry 07/22/21 07/22/21 07/22/21 12:43 12:45 12:47 Pulse Rate 78 77 73 Respiratory 17 17 17 Rate Blood Pressure 118/55 118/55 118/55 Blood Pressure [Left] O2 Sat by Pulse 99 99 99 Oximetry 07/22/21 07/22/21 07/22/21 12:49 12:51 12:53 Pulse Rate 71 73 71 Respiratory 20 18 16 Rate Blood Pressure 118/55 118/55 91/49 Blood Pressure [Left] O2 Sat by Pulse 99 98 96 Oximetry 07/22/21 07/22/21 07/22/21 12:55 12:57 12:59 Pulse Rate 72 73 74 Respiratory 17 18 19 Rate Blood Pressure 91/49 91/49 91/49 Blood Pressure [Left] O2 Sat by Pulse 97 98 98 Oximetry 07/22/21 07/22/21 07/22/21 13:01 13:03 13:05 Pulse Rate 69 83 74 Respiratory 13 18 16 Rate Blood Pressure 91/49 91/49 91/49 Blood Pressure [Left] O2 Sat by Pulse 98 97 98 Oximetry 07/22/21 07/22/21 07/22/21 13:07 13:09 13:11 Pulse Rate 70 75 70 Respiratory 18 15 21 Rate Blood Pressure 91/49 91/49 91/49 Blood Pressure [Left] O2 Sat by Pulse 97 100 98 Oximetry 07/22/21 07/22/21 07/22/21 13:13 13:15 13:17 Pulse Rate 70 67 68 Respiratory 17 17 15 Rate Blood Pressure 91/49 91/49 91/49 Blood Pressure [Left] O2 Sat by Pulse 97 97 99 Oximetry 07/22/21 07/22/21 07/22/21 13:19 13:21 13:23 Pulse Rate 66 72 70 Respiratory 16 16 16 Rate Blood Pressure 91/49 91/49 91/49 Blood Pressure [Left] O2 Sat by Pulse 97 98 98 Oximetry 07/22/21 07/22/21 07/22/21 13:24 13:25 13:27 Pulse Rate 69 68 81 Respiratory 19 17 14 Rate Blood Pressure 85/40 85/40 85/40 Blood Pressure [Left] O2 Sat by Pulse 98 97 98 Oximetry 07/22/21 07/22/21 07/22/21 13:29 13:31 13:33 Pulse Rate 80 78 67 Respiratory 14 19 18 Rate Blood Pressure 85/40 85/40 85/40 Blood Pressure [Left] O2 Sat by Pulse 97 98 98 Oximetry 07/22/21 07/22/21 07/22/21 13:35 13:37 13:39 Pulse Rate 66 67 66 Respiratory 17 14 13 Rate Blood Pressure 85/40 85/40 85/40 Blood Pressure [Left] O2 Sat by Pulse 98 97 96 Oximetry 07/22/21 07/22/21 07/22/21 13:41 13:43 13:45 Pulse Rate 72 65 74 Respiratory 15 15 13 Rate Blood Pressure 85/40 85/40 85/40 Blood Pressure [Left] O2 Sat by Pulse 99 98 99 Oximetry 07/22/21 07/22/21 07/22/21 13:47 13:49 13:51 Pulse Rate 66 71 68 Respiratory 15 15 14 Rate Blood Pressure 85/40 85/40 85/40 Blood Pressure [Left] O2 Sat by Pulse 97 96 98 Oximetry 07/22/21 07/22/21 07/22/21 13:53 13:55 13:57 Pulse Rate 66 70 74 Respiratory 16 17 17 Rate Blood Pressure 77/42 77/42 77/42 Blood Pressure [Left] O2 Sat by Pulse 97 97 99 Oximetry 07/22/21 07/22/21 07/22/21 13:59 14:01 14:03 Pulse Rate 73 73 73 Respiratory 18 17 22 Rate Blood Pressure 77/42 77/42 77/42 Blood Pressure [Left] O2 Sat by Pulse 98 99 99 Oximetry 07/22/21 07/22/21 07/22/21 14:05 14:07 14:09 Pulse Rate 81 80 78 Respiratory 21 23 17 Rate Blood Pressure 77/42 77/42 77/42 Blood Pressure [Left] O2 Sat by Pulse 100 100 Oximetry 07/22/21 07/22/21 07/22/21 14:11 14:13 14:15 Pulse Rate 77 74 75 Respiratory 18 20 17 Rate Blood Pressure 77/42 108/48 108/48 Blood Pressure [Left] O2 Sat by Pulse 100 100 98 Oximetry 07/22/21 07/22/21 07/22/21 14:17 14:19 14:21 Pulse Rate 70 69 73 Respiratory 14 16 15 Rate Blood Pressure 108/48 108/48 108/48 Blood Pressure [Left] O2 Sat by Pulse 98 99 98 Oximetry 07/22/21 07/22/21 07/22/21 14:23 14:25 14:27 Pulse Rate 74 70 70 Respiratory 14 12 13 Rate Blood Pressure 108/48 108/48 108/48 Blood Pressure [Left] O2 Sat by Pulse 100 98 97 Oximetry 07/22/21 07/22/21 07/22/21 14:29 14:31 14:33 Pulse Rate 74 76 75 Respiratory 17 17 17 Rate Blood Pressure 108/48 108/48 108/48 Blood Pressure [Left] O2 Sat by Pulse 99 99 100 Oximetry 07/22/21 07/22/21 07/22/21 14:34 14:35 14:37 Pulse Rate 78 82 82 Respiratory 18 15 10 L Rate Blood Pressure 87/48 87/48 87/48 Blood Pressure [Left] O2 Sat by Pulse 98 100 98 Oximetry 07/22/21 07/22/21 07/22/21 14:39 14:41 14:42 Pulse Rate 80 77 74 Respiratory 22 16 16 Rate Blood Pressure 87/48 87/48 96/57 Blood Pressure [Left] O2 Sat by Pulse 99 99 98 Oximetry 07/22/21 07/22/21 07/22/21 14:43 14:45 14:46 Pulse Rate 75 77 Respiratory 14 12 Rate Blood Pressure 96/57 96/57 Blood Pressure 96/54 [Left] O2 Sat by Pulse 99 98 Oximetry 07/22/21 07/22/21 07/22/21 14:47 14:49 14:51 Pulse Rate 80 77 78 Respiratory 11 L 15 13 Rate Blood Pressure 96/57 96/57 96/57 Blood Pressure [Left] O2 Sat by Pulse 98 99 98 Oximetry 07/22/21 14:53 Pulse Rate 78 Respiratory 15 Rate Blood Pressure 113/52 Blood Pressure [Left] O2 Sat by Pulse 98 Oximetry ED Medical Decision Making - Lab Data Result diagrams: 07/22/21 12:21 07/22/21 12:21 Lab Results 07/22/21 07/22/21 Range/Units 12:21 12:21 WBC 10.1 (4.5-11.0) K/mm3 RBC 4.28 (3.65-5.03) M/mm3 Hgb 10.4 L (11.8-15.2) gm/dl Hct 33.0 L (35.5-45.6) % MCV 77 L (84-94) fl MCH 24 L (28-32) pg MCHC 32 (32-34) % RDW 15.9 H (13.2-15.2) % Plt Count 478 H (140-440) K/mm3 Lymph % (Auto) 11.8 L (13.4-35.0) % [place] % (Auto) 8.3 H (0.0-7.3) % Eos % (Auto) 0.5 (0.0-4.3) % Baso % (Auto) 0.9 (0.0-1.8) % Lymph # (Auto) 1.2 (1.2-5.4) K/mm3 [place] # (Auto) 0.8 (0.0-0.8) K/mm3 Eos # (Auto) 0.0 (0.0-0.4) K/mm3 Baso # (Auto) 0.1 (0.0-0.1) K/mm3 Seg Neutrophils % 78.5 H (40.0-70.0) % Seg Neutrophils # 7.9 H (1.8-7.7) K/mm3 Sodium 136 L (137-145) mmol/L Potassium 4.1 (3.6-5.0) mmol/L Chloride 102.2 (98-107) mmol/L Carbon Dioxide 20 L (22-30) mmol/L Anion Gap 18 mmol/L BUN 19 (9-20) mg/dL Creatinine 1.3 (0.8-1.3) mg/dL Estimated GFR > 60 ml/min BUN/Creatinine Ratio 15 % Glucose 155 H (75-100) mg/dL Calcium 9.3 (8.4-10.2) mg/dL Magnesium 2.00 (1.7-2.3) mg/dL - Medical Decision Making 65-year-old male with a history of previous stroke and seizures presents to the hospital status post seizure. Patient states he is not on any specific seizure medication. Patient loaded with 1 g of Keppra and is at neurologic baseline without any pain complaints. Labs unremarkable. Patient observed without further seizure activity and will be discharged home with outpatient neurology follow Patient also was provided a wound dressing change of his left postop foot. Dilaudid was provided for pain during ED stay Critical Care Time: No Critical care attestation.: If time is entered above; I have spent that time in minutes in the direct care of this critically ill patient, excluding procedure time. ED Disposition Clinical Impression: Seizure, Post-op pain, Dressing change or removal, surgical wound Disposition: 01 HOME / SELF CARE / HOMELESS Is pt being admited?: No Does the pt Need Aspirin: No Condition: Stable Instructions: Seizure, Adult Additional Instructions: Take the medication as prescribed. Follow-up with your neurologist or the neurologist provided. return if symptoms worsen as indicated by your discharge instructions. Prescriptions: levETIRAcetam [Keppra TAB] 500 mg PO BID #60 tablet Referrals: PAVITHRA GAFFNEY MD [Other] - 3-5 Days LUCI WHITTEN MD [Staff Physician] - 3-5 Days (Neurology) Time of Disposition: 15:27
[2021-07-22] MEDS ORDERED: levETIRAcetam 1000 MG/NS 0.75% 1,000 MG/100 ML BAG IV ONE (11:26)
[2021-07-22] MEDS ORDERED: ONDANSETRON 4 MG/2 ML INJ IV ONE (11:26)
[2021-07-22] MEDS ORDERED: HYDROmorphone 1 MG/1 ML INJ IV ONE ×2 (11:26→15:25)
[2021-07-22 12:48] LABS: Basophils # (Auto) 0.1 K/mm3 (0.0-0.1); Basophils % (Auto) 0.9 % (0.0-1.8); Eosinophils % (Auto) 0.5 % (0.0-4.3); Hemoglobin 10.4 gm/dl (11.8-15.2); Lymphocytes # (Auto) 1.2 K/mm3 (1.2-5.4); Lymphocytes % (Auto) 11.8 % (13.4-35.0); Mean Corpuscular HGB Conc 32 % (32-34); Mean Corpuscular Volume 77 fl (84-94); Monocytes # (Auto) 0.8 K/mm3 (0.0-0.8); Monocytes % (Auto) 8.3 % (0.0-7.3); Platelet Count 478 K/mm3 (140-440); Red Blood Count 4.28 M/mm3 (3.65-5.03); Red Cell Distribution Width 15.9 % (13.2-15.2)
[2021-07-22 12:58] LABS: BUN/Creatinine Ratio 15; Blood Urea Nitrogen 19 mg/dL (9-20); Calcium 9.3 mg/dL (8.4-10.2); Hemolysis Index 3
[2021-07-22] MEDS ORDERED: oxyCODONE /ACETAMINOPHEN 5-325MG TAB PO ONE (15:40)
[2021-07-22 16:28] VITALS: BP 116/56
--- NOTE | 2021-07-23 11:51 | Electrocardiograph Report ---
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
== END 2021-07-22 16:30 | disposition home or self-care (01) ==
LOC: ED 10:54
DX: R56.9 Unspecified convulsions (principal); G89.18 Other acute postprocedural pain; Z48.01 Encounter for change or removal of surgical wound dressing; I11.0 Hypertensive heart disease with heart failure; I50.9 Heart failure, unspecified; Z86.73 Personal history of transient ischemic attack (TIA), and cerebral infarction without residual deficits; E11.9 Type 2 diabetes mellitus without complications; I21.9 Acute myocardial infarction, unspecified; Z90.49 Acquired absence of other specified parts of digestive tract; Z98.890 Other specified postprocedural states; Z79.899 Other long term (current) drug therapy; Z87.891 Personal history of nicotine dependence
CPT/HCPCS: 36415; 80048; 83735; 85025; 93005; 96374; 96375; 99284; J1170; J1953; J2405

== ENCOUNTER 2021-07-31 08:14 | Outpatient (CLI) | payer BC, MEDICARE, MEDICAID ==
[2021-07-31] MEDS ORDERED: LIDOCAINE (4%) 40 MG/ML TOPICAL SOLN 50 ML BOTTLE TP ONE (08:26)
== END 2021-07-31 08:15 | disposition home or self-care (01) ==
LOC: WOUND 08:14
PROVIDERS: ATTEND Surgery
DX: T87.89 Other complications of amputation stump (principal); E11.621 Type 2 diabetes mellitus with foot ulcer; L97.524 Non-pressure chronic ulcer of other part of left foot with necrosis of bone; E11.22 Type 2 diabetes mellitus with diabetic chronic kidney disease; I13.0 Hypertensive heart and chronic kidney disease with heart failure and stage 1 through stage 4 chronic kidney disease, or unspecified chronic kidney disease; N18.9 Chronic kidney disease, unspecified; I50.9 Heart failure, unspecified; E11.51 Type 2 diabetes mellitus with diabetic peripheral angiopathy without gangrene; E11.69 Type 2 diabetes mellitus with other specified complication; M86.672 Other chronic osteomyelitis, left ankle and foot; I25.2 Old myocardial infarction; Z87.891 Personal history of nicotine dependence; Z86.73 Personal history of transient ischemic attack (TIA), and cerebral infarction without residual deficits; Z95.1 Presence of aortocoronary bypass graft; Z95.0 Presence of cardiac pacemaker; Z79.4 Long term (current) use of insulin; Z79.82 Long term (current) use of aspirin; Z79.899 Other long term (current) drug therapy; Y83.5 Amputation of limb(s) as the cause of abnormal reaction of the patient, or of later complication, without mention of misadventure at the time of the procedure

== ENCOUNTER 2021-08-07 08:14 | Outpatient (CLI) | payer BC, MEDICARE, MEDICAID ==
[2021-08-07] MEDS ORDERED: LIDOCAINE (4%) 40 MG/ML TOPICAL SOLN 50 ML BOTTLE TP ONE (08:17)
[2021-08-07] MEDS ORDERED: SODIUM HYPOCHLORITE, DAKIN'S FULL STRENGTH (0.5%) 473 ML TOPICAL SOLN TP ONE (08:35)
== END 2021-08-07 08:15 | disposition home or self-care (01) ==
LOC: WOUND 08:14
PROVIDERS: ATTEND Surgery
DX: T87.89 Other complications of amputation stump (principal); E11.621 Type 2 diabetes mellitus with foot ulcer; L97.524 Non-pressure chronic ulcer of other part of left foot with necrosis of bone; E11.22 Type 2 diabetes mellitus with diabetic chronic kidney disease; I13.0 Hypertensive heart and chronic kidney disease with heart failure and stage 1 through stage 4 chronic kidney disease, or unspecified chronic kidney disease; N18.9 Chronic kidney disease, unspecified; I50.9 Heart failure, unspecified; E11.51 Type 2 diabetes mellitus with diabetic peripheral angiopathy without gangrene; E11.69 Type 2 diabetes mellitus with other specified complication; M86.672 Other chronic osteomyelitis, left ankle and foot; I25.2 Old myocardial infarction; Z87.891 Personal history of nicotine dependence; Z86.73 Personal history of transient ischemic attack (TIA), and cerebral infarction without residual deficits; Z95.1 Presence of aortocoronary bypass graft; Z95.0 Presence of cardiac pacemaker; Z79.4 Long term (current) use of insulin; Z79.82 Long term (current) use of aspirin; Z79.899 Other long term (current) drug therapy; Y83.5 Amputation of limb(s) as the cause of abnormal reaction of the patient, or of later complication, without mention of misadventure at the time of the procedure

== ENCOUNTER 2021-08-12 10:11 | Outpatient (CLI) | payer BC, MEDICARE, MEDICAID ==
--- NOTE | 2021-08-12 12:25 | XRay Report ---
CHEST 2 VIEWS INDICATION: M86.672 E11.621. COMPARISON: 07/30/2020 FINDINGS: Support devices: Multilead pacemaker device remains in the same position. Heart: Within normal limits. Lungs/pleura: No acute air space or interstitial disease. No pleural abnormality or pneumothorax. Additional findings: None. IMPRESSION: No acute findings. Signer Name: Derik Lizarraga Jr, MD Signed: 08/12/2021 12:06 PM Workstation Name: [id number]
== END 2021-08-12 10:12 | disposition home or self-care (01) ==
LOC: XRAY 10:11
PROVIDERS: ATTEND Surgery
DX: E11.621 Type 2 diabetes mellitus with foot ulcer (principal); M86.672 Other chronic osteomyelitis, left ankle and foot
CPT/HCPCS: 71046

== ENCOUNTER 2021-08-14 08:33 | Outpatient (CLI) | payer BC, MEDICARE, MEDICAID | END 2021-08-14 08:34 | disposition home or self-care (01) | LOC: WOUND 08:33 | PROVIDERS: ATTEND Surgery | DX: T87.89 Other complications of amputation stump (principal); E11.621 Type 2 diabetes mellitus with foot ulcer; L97.524 Non-pressure chronic ulcer of other part of left foot with necrosis of bone; E11.22 Type 2 diabetes mellitus with diabetic chronic kidney disease; I13.0 Hypertensive heart and chronic kidney disease with heart failure and stage 1 through stage 4 chronic kidney disease, or unspecified chronic kidney disease; I50.9 Heart failure, unspecified; N18.9 Chronic kidney disease, unspecified; E11.51 Type 2 diabetes mellitus with diabetic peripheral angiopathy without gangrene; E11.69 Type 2 diabetes mellitus with other specified complication; M86.672 Other chronic osteomyelitis, left ankle and foot; I25.2 Old myocardial infarction; Z87.891 Personal history of nicotine dependence; Z86.73 Personal history of transient ischemic attack (TIA), and cerebral infarction without residual deficits; Z95.1 Presence of aortocoronary bypass graft; Z95.0 Presence of cardiac pacemaker; Z79.4 Long term (current) use of insulin; Z79.82 Long term (current) use of aspirin; Z79.899 Other long term (current) drug therapy; Y83.5 Amputation of limb(s) as the cause of abnormal reaction of the patient, or of later complication, without mention of misadventure at the time of the procedure ==

== ENCOUNTER 2021-08-16 09:03 | Outpatient (CLI) | payer BC, MEDICARE, MEDICAID | END 2021-08-16 09:04 | disposition home or self-care (01) | LOC: LAB 09:03 | PROVIDERS: ATTEND Surgery | DX: E11.621 Type 2 diabetes mellitus with foot ulcer (principal) | CPT/HCPCS: 36415; 83036 ==

== ENCOUNTER 2021-08-21 08:40 | Outpatient (CLI) | payer BC, MEDICARE, MEDICAID ==
[2021-08-21] MEDS ORDERED: LIDOCAINE (4%) 40 MG/ML TOPICAL SOLN 50 ML BOTTLE TP ONE (08:52)
== END 2021-08-21 08:41 | disposition home or self-care (01) ==
LOC: WOUND 08:40
PROVIDERS: ATTEND Surgery
DX: T87.89 Other complications of amputation stump (principal); E11.621 Type 2 diabetes mellitus with foot ulcer; L97.524 Non-pressure chronic ulcer of other part of left foot with necrosis of bone; E11.51 Type 2 diabetes mellitus with diabetic peripheral angiopathy without gangrene; E11.22 Type 2 diabetes mellitus with diabetic chronic kidney disease; I13.0 Hypertensive heart and chronic kidney disease with heart failure and stage 1 through stage 4 chronic kidney disease, or unspecified chronic kidney disease; I50.9 Heart failure, unspecified; N18.9 Chronic kidney disease, unspecified; E11.69 Type 2 diabetes mellitus with other specified complication; M86.672 Other chronic osteomyelitis, left ankle and foot; I25.2 Old myocardial infarction; Z87.891 Personal history of nicotine dependence; Z79.4 Long term (current) use of insulin; Z79.82 Long term (current) use of aspirin; Z79.899 Other long term (current) drug therapy; Y83.5 Amputation of limb(s) as the cause of abnormal reaction of the patient, or of later complication, without mention of misadventure at the time of the procedure

== ENCOUNTER 2021-08-22 09:48 | Outpatient (CLI) | payer BC, MEDICAID ==
--- NOTE | 2021-08-22 14:23 | Vascular Lab Report ---
DUPLEX DOPPLER LOWER EXTREMITY ARTERIAL, BILATERAL DALY EVALUATION INDICATION / CLINICAL INFORMATION: atherosclerosis of arteries of lt.leg with ulceration.. TECHNIQUE: Arterial duplex examination of both lower extremities performed using B-mode, color flow a nd spectral Doppler assessment. COMPARISON: 08/10/2019. FINDINGS: RIGHT: Common Femoral Artery: PSV 215 cm/sec. Triphasic waveform. Proximal SFA: PSV 185 cm/sec. Biphasic waveform. Mid SFA: PSV 89 cm/sec. Biphasic waveform. Distal SFA: PSV 44 cm/sec. Biphasic waveform. Popliteal Artery: PSV 69 cm/sec. Monophasic waveform. Posterior Tibial Artery: PSV 14 cm/sec. Monophasic waveform. Dorsalis Pedis Artery: PSV 6 cm/sec. Monophasic waveform. LEFT: Common Femoral Artery: PSV 251 cm/sec. Monophasic waveform. Proximal SFA: PSV 130 cm/sec. Monophasic waveform. Mid SFA: PSV 82 cm/sec. Monophasic waveform. Distal SFA: PSV 44 cm/sec. Monophasic waveform. Popliteal Artery: PSV 23 cm/sec. Monophasic waveform. Posterior Tibial Artery: PSV 30 cm/sec. Monophasic waveform. Dorsalis Pedis Artery: PSV 9 cm/sec. Monophasic waveform. ADDITIONAL FINDINGS: Occluded right anterior tibial artery. RIGHT DALY: 0.52 LEFT DALY: 0.96 IMPRESSION: 1. Moderate to severe peripheral arterial disease, left greater than right. Suspected high-grade sten oses at the level of both proximal superficial femoral arteries. Occluded right anterior tibial arter y. 2. Diminished right DALY, measuring 0.52. 3. Left DALY is within normal limits, though this is likely falsely elevated related to densely calcif ied vasculature. Previously left DALY measured 0.57 on 2019 exam. Ankle-Brachial Index (DALY): - Calcified arteries > 1.4 - Normal = 0.9-1.4 - Mild PAD = 0.7-0.89 - Moderate PAD = 0.51-0.69 - Severe PAD < 0.5 Doppler Waveform: - Triphasic is normal. - Biphasic is abnormal if clear transition from triphasic signal along vascular tree. - Monophasic is abnormal. Scribed by: Tory Engle RDMS, RVT, MARILYN Scribed: 08/22/2021 12:43 PM I have reviewed the images, agree with this report, and edited this report as needed. Signer Name: Yaw Oakley MD Signed: 08/22/2021 2:18 PM Workstation Name: [id number]
== END 2021-08-22 09:49 | disposition home or self-care (01) ==
LOC: VAS 09:48
PROVIDERS: ATTEND Surgery Vascular Surgery
DX: I70.245 Atherosclerosis of native arteries of left leg with ulceration of other part of foot (principal); I73.89 Other specified peripheral vascular diseases; I70.201 Unspecified atherosclerosis of native arteries of extremities, right leg
CPT/HCPCS: 93922; 93925

== ENCOUNTER 2021-08-27 09:47 | Day surgery (SDC) | payer BC, MEDICAID, MEDICARE ==
[~2021-08-27 09:47] MED LIST changes: +LACTATED RINGERS 1,000 ML IV SCH; -MIDAZOLAM 2 MG/2 ML INJ IV NR; -SODIUM CHLORIDE 0.9% 1000 ML 1,000 ML IV SCH; +ceFAZolin/Water 2 GM/20 ML 2 GM/20 ML SYRINGE IV NR
[2021-08-27 11:06] LABS: Hematocrit 30.9 % (35.5-45.6); Hemoglobin 9.8 gm/dl (11.8-15.2); Mean Corpuscular HGB Conc 32 % (32-34); Mean Corpuscular Volume 75 fl (84-94); Platelet Count 315 K/mm3 (140-440); Red Blood Count 4.12 M/mm3 (3.65-5.03); Red Cell Distribution Width 18.2 % (13.2-15.2)
[2021-08-27 11:20] LABS: BUN/Creatinine Ratio 27; Blood Urea Nitrogen 35 mg/dL (9-20); Calcium 9.5 mg/dL (8.4-10.2); Hemolysis Index 0
--- NOTE | 2021-08-27 12:57 | Anesthesia Consultation ---
Anesthesia Consult and Med Hx Date of service: 08/27/21 - Airway Anesthetic Teeth Evaluation: Poor (multiple missing teeth, evidence of decay. Denies loose teeth.) ROM Head & Neck: Adequate Mental/Hyoid Distance: Adequate Mallampati Class: Class III Intubation Access Assessment: Possibly Difficult - Pre-Operative Health Status ASA Pre-Surgery Classification: ASA4 Proposed Anesthetic Plan: MAC Nerve Block: Ank - Pulmonary Hx Smoking: Yes (former smoker) Hx Respiratory Symptoms: No - Cardiovascular System Hx Hypertension: Yes Hx Coronary Artery Disease: Yes (iCMP EF 30-35%) Hx Heart Attack/AMI: Yes (2019 s/p CABG) Hx Cardia Arrhythmia: Yes (hx VT) Hx Pacemaker: Yes Hx Internal Defibrillator: Yes Hx Peripheral Vascular Disease: Yes (anticoagulants held x3days) - Central Nervous System Hx Seizures: Yes (last seziure 1.5 months ago) CVA: Yes (2019) - Endocrine Hx Renal Disease: No Hx Liver Disease: No Hx Insulin Dependent Diabetes: No Hx Non-Insulin Dependent Diabetes: No Hx Thyroid Disease: No - Additional Comments Anesthesia Medical History Comments: No hx anesthetic complications. Discussed GA vs ankle block w/ sedation. Patient and elect for ankle block. Has had several similar procedures w/ ankle block without complications.
--- NOTE | 2021-08-27 12:57 | Anesthesia Day of Surgery ---
Anesthesia Day of Surgery - Day of Surgery Patient Examined: Yes Patient H&P Reviewed: Yes Patient is NPO: Yes
[2021-08-27] MEDS ORDERED: BUPIVACAINE/PF (0.25%) 2.5 MG/ML 30 ML VIAL INFILTRATI ONE (12:59)
[2021-08-27] MEDS ORDERED: levETIRAcetam 500 MG TAB PO ONE (13:58)
[2021-08-27] MEDS: MIDAZOLAM 2 MG/2 ML INJ IV NR ×2 (14:12→15:27)
[2021-08-27] MEDS ORDERED: LIDOCAINE MPF (2%) 20 MG/1 ML VIAL 5 ML ONE (16:26)
[2021-08-27] MEDS ORDERED: propofoL 200 MG/20 ML VIAL IV ONE (16:27)
[2021-08-27] MEDS ORDERED: SODIUM CHLORIDE 0.9% IRR 1,500 ML BOTTLE IR ONE (17:01)
--- NOTE | 2021-08-27 17:24 | Short Stay Summary ---
Short Stay Documentation Date of service: 08/27/21 Narrative H&P: See H&P - History H&P: obtained from office - Allergies and Medications Current Medications: Allergies No Known Allergies Allergy (Verified 08/26/21 10:16) Home Medications Medication Instructions Recorded Confirmed Last Taken Type AtorvaSTATin [Lipitor] 40 mg PO QHS #30 tablet 08/12/19 08/26/21 06/21/21 Rx carvediloL [Coreg] 3.125 mg PO BID #60 tablet 09/22/19 08/26/21 06/21/21 Rx Nitroglycerin [Nitrostat] 0.4 mg SL Q5M PRN 10/17/19 08/26/21 Unknown History lisinopriL [Zestril TAB] 5 mg PO QDAY 10/17/19 08/26/21 06/26/21 08:00 History Gabapentin 400 mg PO Q8HR 03/29/21 08/26/21 06/25/21 History Pantoprazole [Protonix TAB] 40 mg PO QDAY #90 tablet 03/29/21 08/26/21 06/21/21 Rx Spironolactone [Aldactone] 25 mg PO DAILY 03/29/21 08/26/21 06/21/21 History Furosemide [Lasix TAB] 40 mg PO QDAY 06/18/21 08/26/21 06/21/21 History Oxycodone HCl/Acetaminophen 1 each PO QID PRN 06/18/21 08/26/21 06/21/21 History [Oxycodone-Acetaminophen 10-325] levETIRAcetam [Keppra TAB] 500 mg PO BID #60 tablet 07/22/21 08/26/21 Unknown Rx Active Medications Cefazolin Sodium (Ancef/Sterile Water 2 Gm/20 Ml) 2 gm in 20 mls @ 80 mls/hr IV PREOP NR; Protocol Stop: 08/27/21 23:59 Lactated Ringer's (Lactated Ringers) 1,000 mls @ 100 mls/hr IV DIRECT THOMPSON Stop: 08/27/21 23:59 Last Admin: 08/27/21 10:58 Dose: 100 mls/hr Midazolam HCl (Midazolam 2 Mg/2 Ml Inj) 2 mg IV PREOP NR Stop: 08/27/21 23:59 Last Admin: 08/27/21 15:27 Dose: 1 mg - Brief post op/procedure progress note Date of procedure: 08/27/21 Pre-op diagnosis: Peripheral Vascular Disease with Nonhealing Left Transmetatarsal Amputation Post-op diagnosis: same Procedure: 1. Excisional Debridement of Left Transmetatarsal Amputation (Wound Measures 7 x 3 x 4 cm) 2. Placement of 4 in x 5 in Integra Bilayer Matrix Wound Dressing Anesthesia: MAC, regional Surgeon: URIAH JERRY Estimated blood loss: minimal Pathology: list (Soft tissue from left transmetatarsal amputation) Specimen disposition: discarded Condition: stable - Disposition Condition at discharge: Good Disposition: 01 HOME / SELF CARE / HOMELESS Short Stay Discharge Plan Wound: per your surgeon's advice (Do not get left foot wound wet. Keep left foot dressing intact until follow-up with vascular surgeon.) Follow up with: URIAH JERRY MD [Staff Physician] - 7 Days (Call the office and schedule an appointment for Thursday09/02/2021) Prescriptions: Oxycodone HCl/Acetaminophen [Percocet 7.5/325 mg] 1 each PO Q6HR PRN #30 tab PRN Reason: Pain
--- NOTE | 2021-08-27 17:32 | Operative Report ---
Operative Report Operative Report: Date of Procedure: 08/27/2021 Pre-operative Diagnosis: Peripheral Vascular Disease with Nonhealing Left Transm etatarsal Amputation Post-operative Diagnosis: Same Procedure(s): 1. Excisional Debridement of Soft Tissue of left Transmetatarsal Amputation (Wound Measures 7 x 3 x 4 cm) 2. Placement of 4 in x 5 in Integra Bilayer Matrix Wound Dressing Surgeon: Flaquito Nair M.D. Membership Correspondent: None Anesthesia: Regional/MAC EBL: None Counts: Correct Complications: None Condition: Stable Findings: All remaining tissue within the wound bed appeared healthy and viable without any overt signs of infection. Specimen: Soft tissue from left transmetatarsal amputation site was discarded. Indication: The patient is a 65-year-old male with history of peripheral vascular disease who has undergone multiple interventions to revascularize his bilateral lower extremities. Additionally the patient has had transmetatarsal amputations of bilateral feet and recently required excision of his left second metatarsal secondary to osteomyelitis. The wound has been slow to heal and he requires debridement with an extracellular matrix to assist with healing. He was given the risk, benefits, and alternative procedures and consented to the procedure. Description of Procedure: A regional block was performed on the patient's left ankle in the preoperative area. The patient was then transported to the operating room and a timeout was performed. After a timeout was performed the patient was sedated and his left foot was prepped and draped in normal sterile fashion. The left foot wound was then debrided using a combination of curved Mayos and a curette. Once the wound to be adequately debrided to healthy bleeding tissue the wound was copiously irrigated and hemostasis within the wound was achieved with a combination of cautery and manual pressure. Once hemostasis had been achieved a 4 in x 5 in Integra Bilayer Matrix Wound Dressing was chosen to assist with healing of the wound. The wound matrix was cut in half and the collagen from one half of the matrix was from the silicone layer using the back end of a DeBakey. The collagen was then used to fill the defect in the wound. The other half was then cut to the dimensions of the wound and then secured in place, over the wound, using 2-0 PDS in interrupted fashion. Once this had been adequately secured the wound was dressed with an Adaptic, fluffs that were rolled to create a bolster, a Kerlix roll, and a 4 inch Salvador bandage. The patient tolerated the procedure well. All sponge, needle, and instrument counts were correct. The patient was taken to the recovery area in stable condition.
[2021-08-27 21:10] VITALS: BP 140/67
== END 2021-08-27 18:30 | disposition home or self-care (01) ==
LOC: OR 09:47
PROVIDERS: ATTEND Surgery Vascular Surgery
DX: I70.245 Atherosclerosis of native arteries of left leg with ulceration of other part of foot (principal); I25.2 Old myocardial infarction; G93.40 Encephalopathy, unspecified; D64.9 Anemia, unspecified; G40.909 Epilepsy, unspecified, not intractable, without status epilepticus; I25.5 Ischemic cardiomyopathy; I70.261 Atherosclerosis of native arteries of extremities with gangrene, right leg; E11.51 Type 2 diabetes mellitus with diabetic peripheral angiopathy without gangrene; I25.118 Atherosclerotic heart disease of native coronary artery with other forms of angina pectoris; J43.9 Emphysema, unspecified; I11.0 Hypertensive heart disease with heart failure; I50.9 Heart failure, unspecified; H40.9 Unspecified glaucoma; I48.91 Unspecified atrial fibrillation; E78.00 Pure hypercholesterolemia, unspecified; F41.9 Anxiety disorder, unspecified; Z79.899 Other long term (current) drug therapy; Z87.891 Personal history of nicotine dependence; Z86.79 Personal history of other diseases of the circulatory system; Z95.1 Presence of aortocoronary bypass graft; Z86.718 Personal history of other venous thrombosis and embolism; Z98.890 Other specified postprocedural states; Z90.49 Acquired absence of other specified parts of digestive tract; Z86.69 Personal history of other diseases of the nervous system and sense organs; Z86.73 Personal history of transient ischemic attack (TIA), and cerebral infarction without residual deficits
CPT/HCPCS: 11043; 36415; 80048; 82962; 85027; J0690; J2250; J2704; J3490; J7120

== ENCOUNTER 2021-09-30 09:52 | Outpatient (CLI) | payer BC, MEDICAID, MEDICARE | END 2021-09-30 09:53 | disposition home or self-care (01) | LOC: WOUND 09:52 | PROVIDERS: ATTEND Surgery | DX: T87.89 Other complications of amputation stump (principal); E11.621 Type 2 diabetes mellitus with foot ulcer; L97.524 Non-pressure chronic ulcer of other part of left foot with necrosis of bone; E11.51 Type 2 diabetes mellitus with diabetic peripheral angiopathy without gangrene; E11.22 Type 2 diabetes mellitus with diabetic chronic kidney disease; I13.0 Hypertensive heart and chronic kidney disease with heart failure and stage 1 through stage 4 chronic kidney disease, or unspecified chronic kidney disease; I50.9 Heart failure, unspecified; N18.9 Chronic kidney disease, unspecified; E11.69 Type 2 diabetes mellitus with other specified complication; M86.672 Other chronic osteomyelitis, left ankle and foot; I25.2 Old myocardial infarction; Z87.891 Personal history of nicotine dependence; Z79.4 Long term (current) use of insulin; Z79.82 Long term (current) use of aspirin; Z79.899 Other long term (current) drug therapy; Y83.5 Amputation of limb(s) as the cause of abnormal reaction of the patient, or of later complication, without mention of misadventure at the time of the procedure | CPT/HCPCS: 82962; G0277; 99183 ==

== ENCOUNTER 2021-10-01 08:54 | Outpatient (CLI) | payer BC, MEDICAID, MEDICARE | END 2021-10-01 08:55 | disposition home or self-care (01) | LOC: WOUND 08:54 | PROVIDERS: ATTEND Internal Medicine | DX: M86.672 Other chronic osteomyelitis, left ankle and foot (principal); E11.69 Type 2 diabetes mellitus with other specified complication; T87.89 Other complications of amputation stump; E11.621 Type 2 diabetes mellitus with foot ulcer; L97.524 Non-pressure chronic ulcer of other part of left foot with necrosis of bone; E11.51 Type 2 diabetes mellitus with diabetic peripheral angiopathy without gangrene; E11.22 Type 2 diabetes mellitus with diabetic chronic kidney disease; I13.0 Hypertensive heart and chronic kidney disease with heart failure and stage 1 through stage 4 chronic kidney disease, or unspecified chronic kidney disease; N18.9 Chronic kidney disease, unspecified; I50.9 Heart failure, unspecified; I25.2 Old myocardial infarction; I25.10 Atherosclerotic heart disease of native coronary artery without angina pectoris; Z79.4 Long term (current) use of insulin; Z79.82 Long term (current) use of aspirin; Z79.899 Other long term (current) drug therapy; Z87.891 Personal history of nicotine dependence; Z95.0 Presence of cardiac pacemaker; Z86.73 Personal history of transient ischemic attack (TIA), and cerebral infarction without residual deficits; Y83.5 Amputation of limb(s) as the cause of abnormal reaction of the patient, or of later complication, without mention of misadventure at the time of the procedure | CPT/HCPCS: 82962; G0277; 99183 ==

== ENCOUNTER 2021-10-08 09:09 | Outpatient (CLI) | payer BC, MEDICAID, MEDICARE | END 2021-10-08 09:10 | disposition home or self-care (01) | LOC: WOUND 09:09 | PROVIDERS: ATTEND Internal Medicine | DX: M86.672 Other chronic osteomyelitis, left ankle and foot (principal); E11.69 Type 2 diabetes mellitus with other specified complication; T87.89 Other complications of amputation stump; E11.621 Type 2 diabetes mellitus with foot ulcer; L97.524 Non-pressure chronic ulcer of other part of left foot with necrosis of bone; E11.51 Type 2 diabetes mellitus with diabetic peripheral angiopathy without gangrene; E11.22 Type 2 diabetes mellitus with diabetic chronic kidney disease; I13.0 Hypertensive heart and chronic kidney disease with heart failure and stage 1 through stage 4 chronic kidney disease, or unspecified chronic kidney disease; I50.9 Heart failure, unspecified; N18.9 Chronic kidney disease, unspecified; I25.2 Old myocardial infarction; I25.10 Atherosclerotic heart disease of native coronary artery without angina pectoris; Z79.4 Long term (current) use of insulin; Z79.82 Long term (current) use of aspirin; Z79.899 Other long term (current) drug therapy; Z87.891 Personal history of nicotine dependence; Z86.73 Personal history of transient ischemic attack (TIA), and cerebral infarction without residual deficits; Z95.1 Presence of aortocoronary bypass graft; Z95.0 Presence of cardiac pacemaker; Y83.5 Amputation of limb(s) as the cause of abnormal reaction of the patient, or of later complication, without mention of misadventure at the time of the procedure | CPT/HCPCS: 82962; G0277; 99183 ==

== ENCOUNTER 2021-10-09 08:55 | Outpatient (CLI) | payer BC, MEDICAID | END 2021-10-09 08:56 | disposition home or self-care (01) | LOC: WOUND 08:55 | PROVIDERS: ATTEND Surgery | DX: M86.672 Other chronic osteomyelitis, left ankle and foot (principal); E11.69 Type 2 diabetes mellitus with other specified complication; T87.89 Other complications of amputation stump; E11.621 Type 2 diabetes mellitus with foot ulcer; L97.524 Non-pressure chronic ulcer of other part of left foot with necrosis of bone; E11.51 Type 2 diabetes mellitus with diabetic peripheral angiopathy without gangrene; E11.22 Type 2 diabetes mellitus with diabetic chronic kidney disease; I13.0 Hypertensive heart and chronic kidney disease with heart failure and stage 1 through stage 4 chronic kidney disease, or unspecified chronic kidney disease; I50.9 Heart failure, unspecified; N18.9 Chronic kidney disease, unspecified; I25.2 Old myocardial infarction; Z79.4 Long term (current) use of insulin; Z79.82 Long term (current) use of aspirin; Z79.899 Other long term (current) drug therapy; Z87.891 Personal history of nicotine dependence; Z86.73 Personal history of transient ischemic attack (TIA), and cerebral infarction without residual deficits; Y83.5 Amputation of limb(s) as the cause of abnormal reaction of the patient, or of later complication, without mention of misadventure at the time of the procedure | CPT/HCPCS: 82962; G0277; 99183 ==

== ENCOUNTER 2021-10-10 08:59 | Outpatient (CLI) | payer BC, MEDICAID | END 2021-10-10 09:00 | disposition home or self-care (01) | LOC: WOUND 08:59 | PROVIDERS: ATTEND Internal Medicine | DX: M86.672 Other chronic osteomyelitis, left ankle and foot (principal); E11.69 Type 2 diabetes mellitus with other specified complication; T87.89 Other complications of amputation stump; E11.621 Type 2 diabetes mellitus with foot ulcer; L97.524 Non-pressure chronic ulcer of other part of left foot with necrosis of bone; E11.51 Type 2 diabetes mellitus with diabetic peripheral angiopathy without gangrene; E11.22 Type 2 diabetes mellitus with diabetic chronic kidney disease; I13.0 Hypertensive heart and chronic kidney disease with heart failure and stage 1 through stage 4 chronic kidney disease, or unspecified chronic kidney disease; I50.9 Heart failure, unspecified; N18.9 Chronic kidney disease, unspecified; I25.2 Old myocardial infarction; I25.10 Atherosclerotic heart disease of native coronary artery without angina pectoris; Z79.4 Long term (current) use of insulin; Z79.82 Long term (current) use of aspirin; Z79.899 Other long term (current) drug therapy; Z86.73 Personal history of transient ischemic attack (TIA), and cerebral infarction without residual deficits; Z87.891 Personal history of nicotine dependence; Z95.1 Presence of aortocoronary bypass graft; Z95.0 Presence of cardiac pacemaker; Y83.5 Amputation of limb(s) as the cause of abnormal reaction of the patient, or of later complication, without mention of misadventure at the time of the procedure | CPT/HCPCS: 82962; G0277; 99183 ==

== ENCOUNTER 2021-10-11 09:50 | Outpatient (CLI) | payer BC, MEDICAID | END 2021-10-11 09:51 | disposition home or self-care (01) | LOC: WOUND 09:50 | PROVIDERS: ATTEND Surgery | DX: M86.672 Other chronic osteomyelitis, left ankle and foot (principal); E11.69 Type 2 diabetes mellitus with other specified complication; T87.89 Other complications of amputation stump; E11.621 Type 2 diabetes mellitus with foot ulcer; L97.524 Non-pressure chronic ulcer of other part of left foot with necrosis of bone; E11.51 Type 2 diabetes mellitus with diabetic peripheral angiopathy without gangrene; E11.22 Type 2 diabetes mellitus with diabetic chronic kidney disease; I13.0 Hypertensive heart and chronic kidney disease with heart failure and stage 1 through stage 4 chronic kidney disease, or unspecified chronic kidney disease; I50.9 Heart failure, unspecified; N18.9 Chronic kidney disease, unspecified; I25.2 Old myocardial infarction; I25.10 Atherosclerotic heart disease of native coronary artery without angina pectoris; Z79.4 Long term (current) use of insulin; Z79.82 Long term (current) use of aspirin; Z79.899 Other long term (current) drug therapy; Z86.73 Personal history of transient ischemic attack (TIA), and cerebral infarction without residual deficits; Z87.891 Personal history of nicotine dependence; Z95.1 Presence of aortocoronary bypass graft; Z95.0 Presence of cardiac pacemaker; Y83.5 Amputation of limb(s) as the cause of abnormal reaction of the patient, or of later complication, without mention of misadventure at the time of the procedure | CPT/HCPCS: 82962 ==

== ENCOUNTER 2021-10-14 09:07 | Outpatient (CLI) | payer BC, MEDICAID | END 2021-10-14 09:08 | disposition home or self-care (01) | LOC: WOUND 09:07 | PROVIDERS: ATTEND Surgery | DX: M86.672 Other chronic osteomyelitis, left ankle and foot (principal); E11.69 Type 2 diabetes mellitus with other specified complication; T87.89 Other complications of amputation stump; E11.621 Type 2 diabetes mellitus with foot ulcer; L97.524 Non-pressure chronic ulcer of other part of left foot with necrosis of bone; E11.51 Type 2 diabetes mellitus with diabetic peripheral angiopathy without gangrene; E11.22 Type 2 diabetes mellitus with diabetic chronic kidney disease; I13.0 Hypertensive heart and chronic kidney disease with heart failure and stage 1 through stage 4 chronic kidney disease, or unspecified chronic kidney disease; I50.9 Heart failure, unspecified; N18.9 Chronic kidney disease, unspecified; I25.2 Old myocardial infarction; Z79.4 Long term (current) use of insulin; Z79.82 Long term (current) use of aspirin; Z79.899 Other long term (current) drug therapy; Z86.73 Personal history of transient ischemic attack (TIA), and cerebral infarction without residual deficits; Z87.891 Personal history of nicotine dependence; Z95.1 Presence of aortocoronary bypass graft; Z95.0 Presence of cardiac pacemaker; Y83.5 Amputation of limb(s) as the cause of abnormal reaction of the patient, or of later complication, without mention of misadventure at the time of the procedure | CPT/HCPCS: 82962; G0277; 99183 ==

== ENCOUNTER 2021-10-15 08:59 | Outpatient (CLI) | payer BC, MEDICAID | END 2021-10-15 09:00 | disposition home or self-care (01) | LOC: WOUND 08:59 | PROVIDERS: ATTEND Surgery | DX: T87.89 Other complications of amputation stump (principal); E11.621 Type 2 diabetes mellitus with foot ulcer; L97.524 Non-pressure chronic ulcer of other part of left foot with necrosis of bone; E11.69 Type 2 diabetes mellitus with other specified complication; M86.672 Other chronic osteomyelitis, left ankle and foot; E11.51 Type 2 diabetes mellitus with diabetic peripheral angiopathy without gangrene; E11.22 Type 2 diabetes mellitus with diabetic chronic kidney disease; I13.0 Hypertensive heart and chronic kidney disease with heart failure and stage 1 through stage 4 chronic kidney disease, or unspecified chronic kidney disease; I50.9 Heart failure, unspecified; N18.9 Chronic kidney disease, unspecified; I25.2 Old myocardial infarction; Z79.4 Long term (current) use of insulin; Z79.82 Long term (current) use of aspirin; Z79.899 Other long term (current) drug therapy; Z86.73 Personal history of transient ischemic attack (TIA), and cerebral infarction without residual deficits; Z87.891 Personal history of nicotine dependence; Z95.1 Presence of aortocoronary bypass graft; Z95.0 Presence of cardiac pacemaker; Y83.5 Amputation of limb(s) as the cause of abnormal reaction of the patient, or of later complication, without mention of misadventure at the time of the procedure | CPT/HCPCS: 82962 ==

== ENCOUNTER 2021-10-16 09:07 | Outpatient (CLI) | payer BC, MEDICAID | END 2021-10-16 09:08 | disposition home or self-care (01) | LOC: WOUND 09:07 | PROVIDERS: ATTEND Surgery | DX: M86.672 Other chronic osteomyelitis, left ankle and foot (principal); E11.69 Type 2 diabetes mellitus with other specified complication; T87.89 Other complications of amputation stump; E11.621 Type 2 diabetes mellitus with foot ulcer; L97.524 Non-pressure chronic ulcer of other part of left foot with necrosis of bone; E11.51 Type 2 diabetes mellitus with diabetic peripheral angiopathy without gangrene; E11.22 Type 2 diabetes mellitus with diabetic chronic kidney disease; I13.0 Hypertensive heart and chronic kidney disease with heart failure and stage 1 through stage 4 chronic kidney disease, or unspecified chronic kidney disease; I50.9 Heart failure, unspecified; N18.9 Chronic kidney disease, unspecified; I25.2 Old myocardial infarction; Z79.4 Long term (current) use of insulin; Z79.82 Long term (current) use of aspirin; Z79.899 Other long term (current) drug therapy; Z86.73 Personal history of transient ischemic attack (TIA), and cerebral infarction without residual deficits; Z87.891 Personal history of nicotine dependence; Z95.1 Presence of aortocoronary bypass graft; Z95.0 Presence of cardiac pacemaker; Y83.5 Amputation of limb(s) as the cause of abnormal reaction of the patient, or of later complication, without mention of misadventure at the time of the procedure | CPT/HCPCS: 82962; G0277; 99183 ==

== ENCOUNTER 2021-10-17 09:31 | Outpatient (CLI) | payer BC, MEDICAID | END 2021-10-17 09:32 | disposition home or self-care (01) | LOC: WOUND 09:31 | PROVIDERS: ATTEND Internal Medicine | DX: M86.672 Other chronic osteomyelitis, left ankle and foot (principal); E11.69 Type 2 diabetes mellitus with other specified complication; T87.89 Other complications of amputation stump; E11.621 Type 2 diabetes mellitus with foot ulcer; L97.524 Non-pressure chronic ulcer of other part of left foot with necrosis of bone; E11.51 Type 2 diabetes mellitus with diabetic peripheral angiopathy without gangrene; E11.22 Type 2 diabetes mellitus with diabetic chronic kidney disease; I13.0 Hypertensive heart and chronic kidney disease with heart failure and stage 1 through stage 4 chronic kidney disease, or unspecified chronic kidney disease; N18.9 Chronic kidney disease, unspecified; I50.9 Heart failure, unspecified; I25.2 Old myocardial infarction; I25.10 Atherosclerotic heart disease of native coronary artery without angina pectoris; Z79.4 Long term (current) use of insulin; Z79.82 Long term (current) use of aspirin; Z79.899 Other long term (current) drug therapy; Z87.891 Personal history of nicotine dependence; Z86.73 Personal history of transient ischemic attack (TIA), and cerebral infarction without residual deficits; Z95.0 Presence of cardiac pacemaker; Z95.1 Presence of aortocoronary bypass graft; Y83.5 Amputation of limb(s) as the cause of abnormal reaction of the patient, or of later complication, without mention of misadventure at the time of the procedure | CPT/HCPCS: 82962; G0277; 99183 ==

== ENCOUNTER 2021-10-18 09:00 | Outpatient (CLI) | payer BC, MEDICAID | END 2021-10-18 09:01 | disposition home or self-care (01) | LOC: WOUND 09:00 | PROVIDERS: ATTEND Surgery | DX: M86.672 Other chronic osteomyelitis, left ankle and foot (principal); E11.69 Type 2 diabetes mellitus with other specified complication; T87.89 Other complications of amputation stump; E11.621 Type 2 diabetes mellitus with foot ulcer; L97.524 Non-pressure chronic ulcer of other part of left foot with necrosis of bone; E11.51 Type 2 diabetes mellitus with diabetic peripheral angiopathy without gangrene; E11.22 Type 2 diabetes mellitus with diabetic chronic kidney disease; I13.0 Hypertensive heart and chronic kidney disease with heart failure and stage 1 through stage 4 chronic kidney disease, or unspecified chronic kidney disease; N18.9 Chronic kidney disease, unspecified; I50.9 Heart failure, unspecified; I25.2 Old myocardial infarction; I25.10 Atherosclerotic heart disease of native coronary artery without angina pectoris; Z79.4 Long term (current) use of insulin; Z79.82 Long term (current) use of aspirin; Z79.899 Other long term (current) drug therapy; Z87.891 Personal history of nicotine dependence; Z86.73 Personal history of transient ischemic attack (TIA), and cerebral infarction without residual deficits; Z95.0 Presence of cardiac pacemaker; Z95.1 Presence of aortocoronary bypass graft; Y83.5 Amputation of limb(s) as the cause of abnormal reaction of the patient, or of later complication, without mention of misadventure at the time of the procedure | CPT/HCPCS: 82962; G0277; 99183 ==

== ENCOUNTER 2021-10-24 10:40 | Outpatient (CLI) | payer BC, MEDICAID | END 2021-10-24 10:41 | disposition home or self-care (01) | LOC: WOUND 10:40 | PROVIDERS: ATTEND Internal Medicine | DX: M86.672 Other chronic osteomyelitis, left ankle and foot (principal); E11.69 Type 2 diabetes mellitus with other specified complication; T87.89 Other complications of amputation stump; E11.621 Type 2 diabetes mellitus with foot ulcer; L97.524 Non-pressure chronic ulcer of other part of left foot with necrosis of bone; E11.51 Type 2 diabetes mellitus with diabetic peripheral angiopathy without gangrene; E11.22 Type 2 diabetes mellitus with diabetic chronic kidney disease; I13.0 Hypertensive heart and chronic kidney disease with heart failure and stage 1 through stage 4 chronic kidney disease, or unspecified chronic kidney disease; N18.9 Chronic kidney disease, unspecified; I50.9 Heart failure, unspecified; I25.2 Old myocardial infarction; I25.10 Atherosclerotic heart disease of native coronary artery without angina pectoris; Z79.4 Long term (current) use of insulin; Z79.82 Long term (current) use of aspirin; Z79.899 Other long term (current) drug therapy; Z86.73 Personal history of transient ischemic attack (TIA), and cerebral infarction without residual deficits; Z87.891 Personal history of nicotine dependence; Z95.0 Presence of cardiac pacemaker; Z95.1 Presence of aortocoronary bypass graft; Y83.5 Amputation of limb(s) as the cause of abnormal reaction of the patient, or of later complication, without mention of misadventure at the time of the procedure | CPT/HCPCS: 82962; G0277; 99183 ==

== ENCOUNTER 2021-10-25 08:48 | Outpatient (CLI) | payer BC, MEDICAID | END 2021-10-25 08:49 | disposition home or self-care (01) | LOC: WOUND 08:48 | PROVIDERS: ATTEND Surgery | DX: M86.672 Other chronic osteomyelitis, left ankle and foot (principal); E11.69 Type 2 diabetes mellitus with other specified complication; T87.89 Other complications of amputation stump; E11.621 Type 2 diabetes mellitus with foot ulcer; L97.524 Non-pressure chronic ulcer of other part of left foot with necrosis of bone; E11.51 Type 2 diabetes mellitus with diabetic peripheral angiopathy without gangrene; E11.22 Type 2 diabetes mellitus with diabetic chronic kidney disease; I13.0 Hypertensive heart and chronic kidney disease with heart failure and stage 1 through stage 4 chronic kidney disease, or unspecified chronic kidney disease; N18.9 Chronic kidney disease, unspecified; I50.9 Heart failure, unspecified; I25.2 Old myocardial infarction; I25.10 Atherosclerotic heart disease of native coronary artery without angina pectoris; Z79.4 Long term (current) use of insulin; Z79.82 Long term (current) use of aspirin; Z79.899 Other long term (current) drug therapy; Z86.73 Personal history of transient ischemic attack (TIA), and cerebral infarction without residual deficits; Z87.891 Personal history of nicotine dependence; Z95.0 Presence of cardiac pacemaker; Y83.5 Amputation of limb(s) as the cause of abnormal reaction of the patient, or of later complication, without mention of misadventure at the time of the procedure | CPT/HCPCS: 82962; G0277; 99183 ==

== ENCOUNTER 2021-10-28 09:08 | Outpatient (CLI) | payer BC, MEDICAID | END 2021-10-28 09:09 | disposition home or self-care (01) | LOC: WOUND 09:08 | PROVIDERS: ATTEND Surgery | DX: M86.672 Other chronic osteomyelitis, left ankle and foot (principal); E11.69 Type 2 diabetes mellitus with other specified complication; T87.89 Other complications of amputation stump; E11.621 Type 2 diabetes mellitus with foot ulcer; L97.524 Non-pressure chronic ulcer of other part of left foot with necrosis of bone; E11.51 Type 2 diabetes mellitus with diabetic peripheral angiopathy without gangrene; E11.22 Type 2 diabetes mellitus with diabetic chronic kidney disease; I13.0 Hypertensive heart and chronic kidney disease with heart failure and stage 1 through stage 4 chronic kidney disease, or unspecified chronic kidney disease; N18.9 Chronic kidney disease, unspecified; I50.9 Heart failure, unspecified; I25.2 Old myocardial infarction; I25.10 Atherosclerotic heart disease of native coronary artery without angina pectoris; Z79.4 Long term (current) use of insulin; Z79.82 Long term (current) use of aspirin; Z79.899 Other long term (current) drug therapy; Z86.73 Personal history of transient ischemic attack (TIA), and cerebral infarction without residual deficits; Z87.891 Personal history of nicotine dependence; Y83.5 Amputation of limb(s) as the cause of abnormal reaction of the patient, or of later complication, without mention of misadventure at the time of the procedure | CPT/HCPCS: 82962; G0277; 99183 ==

== ENCOUNTER 2021-10-29 09:00 | Outpatient (CLI) | payer BC, MEDICAID | END 2021-10-29 09:01 | disposition home or self-care (01) | LOC: WOUND 09:00 | PROVIDERS: ATTEND Internal Medicine | DX: M86.672 Other chronic osteomyelitis, left ankle and foot (principal); E11.69 Type 2 diabetes mellitus with other specified complication; T87.89 Other complications of amputation stump; E11.621 Type 2 diabetes mellitus with foot ulcer; L97.524 Non-pressure chronic ulcer of other part of left foot with necrosis of bone; E11.51 Type 2 diabetes mellitus with diabetic peripheral angiopathy without gangrene; E11.22 Type 2 diabetes mellitus with diabetic chronic kidney disease; I13.0 Hypertensive heart and chronic kidney disease with heart failure and stage 1 through stage 4 chronic kidney disease, or unspecified chronic kidney disease; N18.9 Chronic kidney disease, unspecified; I50.9 Heart failure, unspecified; I25.2 Old myocardial infarction; I25.10 Atherosclerotic heart disease of native coronary artery without angina pectoris; Z79.4 Long term (current) use of insulin; Z79.82 Long term (current) use of aspirin; Z79.899 Other long term (current) drug therapy; Z95.0 Presence of cardiac pacemaker; Z95.1 Presence of aortocoronary bypass graft; Z86.73 Personal history of transient ischemic attack (TIA), and cerebral infarction without residual deficits; Z87.891 Personal history of nicotine dependence; Y83.5 Amputation of limb(s) as the cause of abnormal reaction of the patient, or of later complication, without mention of misadventure at the time of the procedure | CPT/HCPCS: 82962; G0277; 99183 ==

== ENCOUNTER 2021-10-30 10:04 | Outpatient (CLI) | payer BC, MEDICAID | END 2021-10-30 10:05 | disposition home or self-care (01) | LOC: WOUND 10:04 | PROVIDERS: ATTEND Surgery | DX: M86.672 Other chronic osteomyelitis, left ankle and foot (principal); E11.69 Type 2 diabetes mellitus with other specified complication; T87.89 Other complications of amputation stump; E11.621 Type 2 diabetes mellitus with foot ulcer; L97.524 Non-pressure chronic ulcer of other part of left foot with necrosis of bone; E11.51 Type 2 diabetes mellitus with diabetic peripheral angiopathy without gangrene; E11.22 Type 2 diabetes mellitus with diabetic chronic kidney disease; I13.0 Hypertensive heart and chronic kidney disease with heart failure and stage 1 through stage 4 chronic kidney disease, or unspecified chronic kidney disease; N18.9 Chronic kidney disease, unspecified; I50.9 Heart failure, unspecified; I25.2 Old myocardial infarction; I25.10 Atherosclerotic heart disease of native coronary artery without angina pectoris; Z79.4 Long term (current) use of insulin; Z79.82 Long term (current) use of aspirin; Z79.899 Other long term (current) drug therapy; Z87.891 Personal history of nicotine dependence; Z86.73 Personal history of transient ischemic attack (TIA), and cerebral infarction without residual deficits; Y83.5 Amputation of limb(s) as the cause of abnormal reaction of the patient, or of later complication, without mention of misadventure at the time of the procedure | CPT/HCPCS: 82962; G0277; 99183 ==

== ENCOUNTER 2021-10-31 08:46 | Outpatient (CLI) | payer BC, MEDICARE, MEDICAID | END 2021-10-31 08:47 | disposition home or self-care (01) | LOC: WOUND 08:46 | PROVIDERS: ATTEND Internal Medicine | DX: M86.672 Other chronic osteomyelitis, left ankle and foot (principal); E11.69 Type 2 diabetes mellitus with other specified complication; T87.89 Other complications of amputation stump; E11.621 Type 2 diabetes mellitus with foot ulcer; L97.524 Non-pressure chronic ulcer of other part of left foot with necrosis of bone; E11.51 Type 2 diabetes mellitus with diabetic peripheral angiopathy without gangrene; E11.22 Type 2 diabetes mellitus with diabetic chronic kidney disease; I13.0 Hypertensive heart and chronic kidney disease with heart failure and stage 1 through stage 4 chronic kidney disease, or unspecified chronic kidney disease; N18.9 Chronic kidney disease, unspecified; I50.9 Heart failure, unspecified; I25.2 Old myocardial infarction; I25.10 Atherosclerotic heart disease of native coronary artery without angina pectoris; Z79.4 Long term (current) use of insulin; Z79.82 Long term (current) use of aspirin; Z79.899 Other long term (current) drug therapy; Z87.891 Personal history of nicotine dependence; Z86.73 Personal history of transient ischemic attack (TIA), and cerebral infarction without residual deficits; Y83.5 Amputation of limb(s) as the cause of abnormal reaction of the patient, or of later complication, without mention of misadventure at the time of the procedure | CPT/HCPCS: 82962; G0277; 99183 ==

== ENCOUNTER 2021-11-01 08:56 | Outpatient (CLI) | payer BC, MEDICARE, MEDICAID | END 2021-11-01 08:57 | disposition home or self-care (01) | LOC: WOUND 08:56 | PROVIDERS: ATTEND Surgery | DX: M86.672 Other chronic osteomyelitis, left ankle and foot (principal); E11.69 Type 2 diabetes mellitus with other specified complication; T87.89 Other complications of amputation stump; E11.621 Type 2 diabetes mellitus with foot ulcer; L97.524 Non-pressure chronic ulcer of other part of left foot with necrosis of bone; E11.51 Type 2 diabetes mellitus with diabetic peripheral angiopathy without gangrene; E11.22 Type 2 diabetes mellitus with diabetic chronic kidney disease; I13.0 Hypertensive heart and chronic kidney disease with heart failure and stage 1 through stage 4 chronic kidney disease, or unspecified chronic kidney disease; N18.9 Chronic kidney disease, unspecified; I50.9 Heart failure, unspecified; I25.2 Old myocardial infarction; I25.10 Atherosclerotic heart disease of native coronary artery without angina pectoris; Z79.4 Long term (current) use of insulin; Z79.82 Long term (current) use of aspirin; Z79.899 Other long term (current) drug therapy; Z87.891 Personal history of nicotine dependence; Z86.73 Personal history of transient ischemic attack (TIA), and cerebral infarction without residual deficits; Y83.5 Amputation of limb(s) as the cause of abnormal reaction of the patient, or of later complication, without mention of misadventure at the time of the procedure | CPT/HCPCS: 82962; G0277; 99183 ==

== ENCOUNTER 2021-11-04 08:54 | Outpatient (CLI) | payer BC, MEDICARE, MEDICAID | END 2021-11-04 08:55 | disposition home or self-care (01) | LOC: WOUND 08:54 | PROVIDERS: ATTEND Surgery | DX: M86.672 Other chronic osteomyelitis, left ankle and foot (principal); E11.69 Type 2 diabetes mellitus with other specified complication; T87.89 Other complications of amputation stump; E11.621 Type 2 diabetes mellitus with foot ulcer; L97.524 Non-pressure chronic ulcer of other part of left foot with necrosis of bone; E11.51 Type 2 diabetes mellitus with diabetic peripheral angiopathy without gangrene; E11.22 Type 2 diabetes mellitus with diabetic chronic kidney disease; I13.0 Hypertensive heart and chronic kidney disease with heart failure and stage 1 through stage 4 chronic kidney disease, or unspecified chronic kidney disease; N18.9 Chronic kidney disease, unspecified; I50.9 Heart failure, unspecified; I25.2 Old myocardial infarction; I25.10 Atherosclerotic heart disease of native coronary artery without angina pectoris; Z79.4 Long term (current) use of insulin; Z79.82 Long term (current) use of aspirin; Z79.899 Other long term (current) drug therapy; Z87.891 Personal history of nicotine dependence; Z95.1 Presence of aortocoronary bypass graft; Z86.73 Personal history of transient ischemic attack (TIA), and cerebral infarction without residual deficits; Y83.5 Amputation of limb(s) as the cause of abnormal reaction of the patient, or of later complication, without mention of misadventure at the time of the procedure | CPT/HCPCS: 82962; G0277; 99183 ==

== ENCOUNTER 2021-11-06 09:57 | Outpatient (CLI) | payer BC, MEDICARE, MEDICAID | END 2021-11-06 09:58 | disposition home or self-care (01) | LOC: WOUND 09:57 | PROVIDERS: ATTEND Surgery | DX: M86.672 Other chronic osteomyelitis, left ankle and foot (principal); E11.69 Type 2 diabetes mellitus with other specified complication; T87.89 Other complications of amputation stump; E11.621 Type 2 diabetes mellitus with foot ulcer; L97.524 Non-pressure chronic ulcer of other part of left foot with necrosis of bone; E11.51 Type 2 diabetes mellitus with diabetic peripheral angiopathy without gangrene; E11.22 Type 2 diabetes mellitus with diabetic chronic kidney disease; I13.0 Hypertensive heart and chronic kidney disease with heart failure and stage 1 through stage 4 chronic kidney disease, or unspecified chronic kidney disease; N18.9 Chronic kidney disease, unspecified; I50.9 Heart failure, unspecified; I25.2 Old myocardial infarction; I25.10 Atherosclerotic heart disease of native coronary artery without angina pectoris; Z79.4 Long term (current) use of insulin; Z79.82 Long term (current) use of aspirin; Z79.899 Other long term (current) drug therapy; Z87.891 Personal history of nicotine dependence; Z95.1 Presence of aortocoronary bypass graft; Z86.73 Personal history of transient ischemic attack (TIA), and cerebral infarction without residual deficits; Y83.5 Amputation of limb(s) as the cause of abnormal reaction of the patient, or of later complication, without mention of misadventure at the time of the procedure | CPT/HCPCS: 82962; G0277; 99183 ==

== ENCOUNTER 2021-11-07 08:48 | Outpatient (CLI) | payer BC, MEDICARE, MEDICAID | END 2021-11-07 08:49 | disposition home or self-care (01) | LOC: WOUND 08:48 | PROVIDERS: ATTEND Internal Medicine | DX: M86.672 Other chronic osteomyelitis, left ankle and foot (principal); E11.69 Type 2 diabetes mellitus with other specified complication; T87.89 Other complications of amputation stump; E11.621 Type 2 diabetes mellitus with foot ulcer; L97.524 Non-pressure chronic ulcer of other part of left foot with necrosis of bone; E11.51 Type 2 diabetes mellitus with diabetic peripheral angiopathy without gangrene; E11.22 Type 2 diabetes mellitus with diabetic chronic kidney disease; I13.0 Hypertensive heart and chronic kidney disease with heart failure and stage 1 through stage 4 chronic kidney disease, or unspecified chronic kidney disease; N18.9 Chronic kidney disease, unspecified; I50.9 Heart failure, unspecified; I25.2 Old myocardial infarction; I25.10 Atherosclerotic heart disease of native coronary artery without angina pectoris; Z79.4 Long term (current) use of insulin; Z79.82 Long term (current) use of aspirin; Z79.899 Other long term (current) drug therapy; Z87.891 Personal history of nicotine dependence; Z95.1 Presence of aortocoronary bypass graft; Z86.73 Personal history of transient ischemic attack (TIA), and cerebral infarction without residual deficits; Y83.5 Amputation of limb(s) as the cause of abnormal reaction of the patient, or of later complication, without mention of misadventure at the time of the procedure | CPT/HCPCS: 82962; G0277; 99183 ==

== ENCOUNTER 2021-11-08 09:10 | Outpatient (CLI) | payer BC, MEDICARE, MEDICAID | END 2021-11-08 09:11 | disposition home or self-care (01) | LOC: WOUND 09:10 | PROVIDERS: ATTEND Surgery | DX: M86.672 Other chronic osteomyelitis, left ankle and foot (principal); E11.69 Type 2 diabetes mellitus with other specified complication; T87.89 Other complications of amputation stump; E11.621 Type 2 diabetes mellitus with foot ulcer; L97.524 Non-pressure chronic ulcer of other part of left foot with necrosis of bone; E11.51 Type 2 diabetes mellitus with diabetic peripheral angiopathy without gangrene; E11.22 Type 2 diabetes mellitus with diabetic chronic kidney disease; I13.0 Hypertensive heart and chronic kidney disease with heart failure and stage 1 through stage 4 chronic kidney disease, or unspecified chronic kidney disease; N18.9 Chronic kidney disease, unspecified; I50.9 Heart failure, unspecified; I25.2 Old myocardial infarction; I25.10 Atherosclerotic heart disease of native coronary artery without angina pectoris; Z79.4 Long term (current) use of insulin; Z79.82 Long term (current) use of aspirin; Z79.899 Other long term (current) drug therapy; Z87.891 Personal history of nicotine dependence; Z95.1 Presence of aortocoronary bypass graft; Z86.73 Personal history of transient ischemic attack (TIA), and cerebral infarction without residual deficits; Y83.5 Amputation of limb(s) as the cause of abnormal reaction of the patient, or of later complication, without mention of misadventure at the time of the procedure | CPT/HCPCS: 82962; G0277; 99183 ==

== ENCOUNTER 2021-11-11 08:44 | Outpatient (CLI) | payer BC, MEDICARE, MEDICAID ==
[2021-11-11] MEDS ORDERED: LIDOCAINE (4%) 40 MG/ML TOPICAL SOLN 50 ML BOTTLE TP ONE (10:03)
== END 2021-11-11 08:45 | disposition home or self-care (01) ==
LOC: WOUND 08:44
PROVIDERS: ATTEND Surgery
DX: M86.672 Other chronic osteomyelitis, left ankle and foot (principal); E11.69 Type 2 diabetes mellitus with other specified complication; T87.89 Other complications of amputation stump; E11.621 Type 2 diabetes mellitus with foot ulcer; L97.524 Non-pressure chronic ulcer of other part of left foot with necrosis of bone; E11.51 Type 2 diabetes mellitus with diabetic peripheral angiopathy without gangrene; E11.22 Type 2 diabetes mellitus with diabetic chronic kidney disease; I13.0 Hypertensive heart and chronic kidney disease with heart failure and stage 1 through stage 4 chronic kidney disease, or unspecified chronic kidney disease; N18.9 Chronic kidney disease, unspecified; I50.9 Heart failure, unspecified; I25.2 Old myocardial infarction; I25.10 Atherosclerotic heart disease of native coronary artery without angina pectoris; Z79.4 Long term (current) use of insulin; Z79.82 Long term (current) use of aspirin; Z79.899 Other long term (current) drug therapy; Z87.891 Personal history of nicotine dependence; Z95.1 Presence of aortocoronary bypass graft; Z86.73 Personal history of transient ischemic attack (TIA), and cerebral infarction without residual deficits; Y83.5 Amputation of limb(s) as the cause of abnormal reaction of the patient, or of later complication, without mention of misadventure at the time of the procedure
CPT/HCPCS: 82962; G0277; 99183

== ENCOUNTER 2021-11-12 09:44 | Outpatient (CLI) | payer BC, MEDICARE, MEDICAID | END 2021-11-12 09:45 | disposition home or self-care (01) | LOC: WOUND 09:44 | PROVIDERS: ATTEND Internal Medicine | DX: M86.672 Other chronic osteomyelitis, left ankle and foot (principal); E11.69 Type 2 diabetes mellitus with other specified complication; T87.89 Other complications of amputation stump; E11.621 Type 2 diabetes mellitus with foot ulcer; L97.524 Non-pressure chronic ulcer of other part of left foot with necrosis of bone; E11.51 Type 2 diabetes mellitus with diabetic peripheral angiopathy without gangrene; E11.22 Type 2 diabetes mellitus with diabetic chronic kidney disease; I13.0 Hypertensive heart and chronic kidney disease with heart failure and stage 1 through stage 4 chronic kidney disease, or unspecified chronic kidney disease; N18.9 Chronic kidney disease, unspecified; I50.9 Heart failure, unspecified; I25.2 Old myocardial infarction; I25.10 Atherosclerotic heart disease of native coronary artery without angina pectoris; Z79.4 Long term (current) use of insulin; Z79.82 Long term (current) use of aspirin; Z79.899 Other long term (current) drug therapy; Z87.891 Personal history of nicotine dependence; Z95.1 Presence of aortocoronary bypass graft; Z86.73 Personal history of transient ischemic attack (TIA), and cerebral infarction without residual deficits; Y83.5 Amputation of limb(s) as the cause of abnormal reaction of the patient, or of later complication, without mention of misadventure at the time of the procedure | CPT/HCPCS: 82962; G0277; 99183 ==

== ENCOUNTER 2021-11-13 08:27 | Outpatient (CLI) | payer BC, MEDICAID | END 2021-11-13 08:28 | disposition home or self-care (01) | LOC: WOUND 08:27 | PROVIDERS: ATTEND Internal Medicine | DX: M86.672 Other chronic osteomyelitis, left ankle and foot (principal); E11.69 Type 2 diabetes mellitus with other specified complication; T87.89 Other complications of amputation stump; E11.621 Type 2 diabetes mellitus with foot ulcer; L97.524 Non-pressure chronic ulcer of other part of left foot with necrosis of bone; E11.51 Type 2 diabetes mellitus with diabetic peripheral angiopathy without gangrene; E11.22 Type 2 diabetes mellitus with diabetic chronic kidney disease; I13.0 Hypertensive heart and chronic kidney disease with heart failure and stage 1 through stage 4 chronic kidney disease, or unspecified chronic kidney disease; N18.9 Chronic kidney disease, unspecified; I50.9 Heart failure, unspecified; I25.2 Old myocardial infarction; I25.10 Atherosclerotic heart disease of native coronary artery without angina pectoris; Z79.4 Long term (current) use of insulin; Z79.82 Long term (current) use of aspirin; Z79.899 Other long term (current) drug therapy; Z87.891 Personal history of nicotine dependence; Z95.1 Presence of aortocoronary bypass graft; Z86.73 Personal history of transient ischemic attack (TIA), and cerebral infarction without residual deficits; Y83.5 Amputation of limb(s) as the cause of abnormal reaction of the patient, or of later complication, without mention of misadventure at the time of the procedure | CPT/HCPCS: 82962; G0277; 99183 ==

== ENCOUNTER 2021-11-14 08:47 | Outpatient (CLI) | payer BC, MEDICAID | END 2021-11-14 08:48 | disposition home or self-care (01) | LOC: WOUND 08:47 | PROVIDERS: ATTEND Surgery | DX: M86.672 Other chronic osteomyelitis, left ankle and foot (principal); E11.69 Type 2 diabetes mellitus with other specified complication; T87.89 Other complications of amputation stump; E11.621 Type 2 diabetes mellitus with foot ulcer; L97.524 Non-pressure chronic ulcer of other part of left foot with necrosis of bone; E11.51 Type 2 diabetes mellitus with diabetic peripheral angiopathy without gangrene; E11.22 Type 2 diabetes mellitus with diabetic chronic kidney disease; I13.0 Hypertensive heart and chronic kidney disease with heart failure and stage 1 through stage 4 chronic kidney disease, or unspecified chronic kidney disease; N18.9 Chronic kidney disease, unspecified; I50.9 Heart failure, unspecified; I25.2 Old myocardial infarction; I25.10 Atherosclerotic heart disease of native coronary artery without angina pectoris; Z79.4 Long term (current) use of insulin; Z79.82 Long term (current) use of aspirin; Z79.899 Other long term (current) drug therapy; Z87.891 Personal history of nicotine dependence; Z95.1 Presence of aortocoronary bypass graft; Z86.73 Personal history of transient ischemic attack (TIA), and cerebral infarction without residual deficits; Y83.5 Amputation of limb(s) as the cause of abnormal reaction of the patient, or of later complication, without mention of misadventure at the time of the procedure | CPT/HCPCS: 82962; G0277; 99183 ==

== ENCOUNTER 2021-11-15 08:53 | Outpatient (CLI) | payer BC, MEDICAID | END 2021-11-15 08:54 | disposition home or self-care (01) | LOC: WOUND 08:53 | PROVIDERS: ATTEND Surgery | DX: M86.672 Other chronic osteomyelitis, left ankle and foot (principal); E11.69 Type 2 diabetes mellitus with other specified complication; T87.89 Other complications of amputation stump; E11.621 Type 2 diabetes mellitus with foot ulcer; L97.524 Non-pressure chronic ulcer of other part of left foot with necrosis of bone; E11.51 Type 2 diabetes mellitus with diabetic peripheral angiopathy without gangrene; E11.22 Type 2 diabetes mellitus with diabetic chronic kidney disease; I13.0 Hypertensive heart and chronic kidney disease with heart failure and stage 1 through stage 4 chronic kidney disease, or unspecified chronic kidney disease; N18.9 Chronic kidney disease, unspecified; I50.9 Heart failure, unspecified; I25.2 Old myocardial infarction; I25.10 Atherosclerotic heart disease of native coronary artery without angina pectoris; Z79.4 Long term (current) use of insulin; Z79.82 Long term (current) use of aspirin; Z79.899 Other long term (current) drug therapy; Z87.891 Personal history of nicotine dependence; Z95.1 Presence of aortocoronary bypass graft; Z86.73 Personal history of transient ischemic attack (TIA), and cerebral infarction without residual deficits; Y83.5 Amputation of limb(s) as the cause of abnormal reaction of the patient, or of later complication, without mention of misadventure at the time of the procedure | CPT/HCPCS: 82962; G0277; 99183 ==

== ENCOUNTER 2021-11-18 08:55 | Outpatient (CLI) | payer BC, MEDICAID | END 2021-11-18 08:56 | disposition home or self-care (01) | LOC: WOUND 08:55 | PROVIDERS: ATTEND Surgery | DX: M86.672 Other chronic osteomyelitis, left ankle and foot (principal); E11.69 Type 2 diabetes mellitus with other specified complication; T87.89 Other complications of amputation stump; E11.621 Type 2 diabetes mellitus with foot ulcer; L97.524 Non-pressure chronic ulcer of other part of left foot with necrosis of bone; E11.51 Type 2 diabetes mellitus with diabetic peripheral angiopathy without gangrene; E11.22 Type 2 diabetes mellitus with diabetic chronic kidney disease; I13.0 Hypertensive heart and chronic kidney disease with heart failure and stage 1 through stage 4 chronic kidney disease, or unspecified chronic kidney disease; N18.9 Chronic kidney disease, unspecified; I50.9 Heart failure, unspecified; I25.2 Old myocardial infarction; I25.10 Atherosclerotic heart disease of native coronary artery without angina pectoris; Z79.4 Long term (current) use of insulin; Z79.82 Long term (current) use of aspirin; Z79.899 Other long term (current) drug therapy; Z87.891 Personal history of nicotine dependence; Z95.1 Presence of aortocoronary bypass graft; Z86.73 Personal history of transient ischemic attack (TIA), and cerebral infarction without residual deficits; Y83.5 Amputation of limb(s) as the cause of abnormal reaction of the patient, or of later complication, without mention of misadventure at the time of the procedure | CPT/HCPCS: 82962; G0277; 99183 ==

== ENCOUNTER 2021-11-19 08:53 | Outpatient (CLI) | payer BC, MEDICAID | END 2021-11-19 08:54 | disposition home or self-care (01) | LOC: WOUND 08:53 | PROVIDERS: ATTEND Internal Medicine | DX: M86.672 Other chronic osteomyelitis, left ankle and foot (principal); E11.69 Type 2 diabetes mellitus with other specified complication; T87.89 Other complications of amputation stump; E11.621 Type 2 diabetes mellitus with foot ulcer; L97.524 Non-pressure chronic ulcer of other part of left foot with necrosis of bone; E11.51 Type 2 diabetes mellitus with diabetic peripheral angiopathy without gangrene; E11.22 Type 2 diabetes mellitus with diabetic chronic kidney disease; I13.0 Hypertensive heart and chronic kidney disease with heart failure and stage 1 through stage 4 chronic kidney disease, or unspecified chronic kidney disease; N18.9 Chronic kidney disease, unspecified; I50.9 Heart failure, unspecified; I25.2 Old myocardial infarction; I25.10 Atherosclerotic heart disease of native coronary artery without angina pectoris; Z79.4 Long term (current) use of insulin; Z79.82 Long term (current) use of aspirin; Z79.899 Other long term (current) drug therapy; Z87.891 Personal history of nicotine dependence; Z95.1 Presence of aortocoronary bypass graft; Z86.73 Personal history of transient ischemic attack (TIA), and cerebral infarction without residual deficits; Y83.5 Amputation of limb(s) as the cause of abnormal reaction of the patient, or of later complication, without mention of misadventure at the time of the procedure | CPT/HCPCS: 82962; G0277; 99183 ==

== ENCOUNTER 2021-11-20 08:59 | Outpatient (CLI) | payer BC, MEDICAID ==
[2021-11-20] MEDS ORDERED: LIDOCAINE (4%) 40 MG/ML TOPICAL SOLN 50 ML BOTTLE TP ONE (11:36)
== END 2021-11-20 09:00 | disposition home or self-care (01) ==
LOC: WOUND 08:59
PROVIDERS: ATTEND Surgery
DX: M86.672 Other chronic osteomyelitis, left ankle and foot (principal); E11.69 Type 2 diabetes mellitus with other specified complication; T87.89 Other complications of amputation stump; E11.621 Type 2 diabetes mellitus with foot ulcer; L97.524 Non-pressure chronic ulcer of other part of left foot with necrosis of bone; E11.51 Type 2 diabetes mellitus with diabetic peripheral angiopathy without gangrene; E11.22 Type 2 diabetes mellitus with diabetic chronic kidney disease; I13.0 Hypertensive heart and chronic kidney disease with heart failure and stage 1 through stage 4 chronic kidney disease, or unspecified chronic kidney disease; N18.9 Chronic kidney disease, unspecified; I50.9 Heart failure, unspecified; I25.2 Old myocardial infarction; I25.10 Atherosclerotic heart disease of native coronary artery without angina pectoris; Z79.4 Long term (current) use of insulin; Z79.82 Long term (current) use of aspirin; Z79.899 Other long term (current) drug therapy; Z87.891 Personal history of nicotine dependence; Z95.1 Presence of aortocoronary bypass graft; Z86.73 Personal history of transient ischemic attack (TIA), and cerebral infarction without residual deficits; Y83.5 Amputation of limb(s) as the cause of abnormal reaction of the patient, or of later complication, without mention of misadventure at the time of the procedure
CPT/HCPCS: 11043; 82962; G0277; 99183

== ENCOUNTER 2021-11-21 09:17 | Outpatient (CLI) | payer BC, MEDICAID | END 2021-11-21 09:18 | disposition home or self-care (01) | LOC: WOUND 09:17 | PROVIDERS: ATTEND Internal Medicine | DX: M86.672 Other chronic osteomyelitis, left ankle and foot (principal); E11.69 Type 2 diabetes mellitus with other specified complication; T87.89 Other complications of amputation stump; E11.621 Type 2 diabetes mellitus with foot ulcer; L97.524 Non-pressure chronic ulcer of other part of left foot with necrosis of bone; E11.51 Type 2 diabetes mellitus with diabetic peripheral angiopathy without gangrene; E11.22 Type 2 diabetes mellitus with diabetic chronic kidney disease; I13.0 Hypertensive heart and chronic kidney disease with heart failure and stage 1 through stage 4 chronic kidney disease, or unspecified chronic kidney disease; N18.9 Chronic kidney disease, unspecified; I50.9 Heart failure, unspecified; I25.2 Old myocardial infarction; I25.10 Atherosclerotic heart disease of native coronary artery without angina pectoris; Z79.4 Long term (current) use of insulin; Z79.82 Long term (current) use of aspirin; Z79.899 Other long term (current) drug therapy; Z87.891 Personal history of nicotine dependence; Z95.1 Presence of aortocoronary bypass graft; Z86.73 Personal history of transient ischemic attack (TIA), and cerebral infarction without residual deficits; Y83.5 Amputation of limb(s) as the cause of abnormal reaction of the patient, or of later complication, without mention of misadventure at the time of the procedure | CPT/HCPCS: 82962; G0277; 99183 ==

== ENCOUNTER 2021-11-25 08:54 | Outpatient (CLI) | payer BC, MEDICAID | END 2021-11-25 08:55 | disposition home or self-care (01) | LOC: WOUND 08:54 | PROVIDERS: ATTEND Surgery | DX: M86.672 Other chronic osteomyelitis, left ankle and foot (principal); E11.69 Type 2 diabetes mellitus with other specified complication; T87.89 Other complications of amputation stump; E11.621 Type 2 diabetes mellitus with foot ulcer; L97.524 Non-pressure chronic ulcer of other part of left foot with necrosis of bone; E11.51 Type 2 diabetes mellitus with diabetic peripheral angiopathy without gangrene; E11.22 Type 2 diabetes mellitus with diabetic chronic kidney disease; I13.0 Hypertensive heart and chronic kidney disease with heart failure and stage 1 through stage 4 chronic kidney disease, or unspecified chronic kidney disease; N18.9 Chronic kidney disease, unspecified; I50.9 Heart failure, unspecified; I25.2 Old myocardial infarction; I25.10 Atherosclerotic heart disease of native coronary artery without angina pectoris; Z79.4 Long term (current) use of insulin; Z79.82 Long term (current) use of aspirin; Z79.899 Other long term (current) drug therapy; Z87.891 Personal history of nicotine dependence; Z95.1 Presence of aortocoronary bypass graft; Z86.73 Personal history of transient ischemic attack (TIA), and cerebral infarction without residual deficits; Y83.5 Amputation of limb(s) as the cause of abnormal reaction of the patient, or of later complication, without mention of misadventure at the time of the procedure | CPT/HCPCS: 82962; G0277; 99183 ==

== ENCOUNTER 2021-11-26 08:52 | Outpatient (CLI) | payer BC, MEDICAID | END 2021-11-26 08:53 | disposition home or self-care (01) | LOC: WOUND 08:52 | PROVIDERS: ATTEND Internal Medicine | DX: M86.672 Other chronic osteomyelitis, left ankle and foot (principal); E11.69 Type 2 diabetes mellitus with other specified complication; T87.89 Other complications of amputation stump; E11.621 Type 2 diabetes mellitus with foot ulcer; L97.524 Non-pressure chronic ulcer of other part of left foot with necrosis of bone; E11.51 Type 2 diabetes mellitus with diabetic peripheral angiopathy without gangrene; E11.22 Type 2 diabetes mellitus with diabetic chronic kidney disease; I13.0 Hypertensive heart and chronic kidney disease with heart failure and stage 1 through stage 4 chronic kidney disease, or unspecified chronic kidney disease; N18.9 Chronic kidney disease, unspecified; I50.9 Heart failure, unspecified; I25.2 Old myocardial infarction; I25.10 Atherosclerotic heart disease of native coronary artery without angina pectoris; Z79.4 Long term (current) use of insulin; Z79.82 Long term (current) use of aspirin; Z79.899 Other long term (current) drug therapy; Z87.891 Personal history of nicotine dependence; Z95.1 Presence of aortocoronary bypass graft; Z86.73 Personal history of transient ischemic attack (TIA), and cerebral infarction without residual deficits; Y83.5 Amputation of limb(s) as the cause of abnormal reaction of the patient, or of later complication, without mention of misadventure at the time of the procedure | CPT/HCPCS: 82962; G0277; 99183 ==

== ENCOUNTER 2021-11-27 10:42 | Outpatient (CLI) | payer BC, MEDICAID | END 2021-11-27 10:43 | disposition home or self-care (01) | LOC: WOUND 10:42 | PROVIDERS: ATTEND Surgery | DX: M86.672 Other chronic osteomyelitis, left ankle and foot (principal); E11.69 Type 2 diabetes mellitus with other specified complication; T87.89 Other complications of amputation stump; E11.621 Type 2 diabetes mellitus with foot ulcer; L97.524 Non-pressure chronic ulcer of other part of left foot with necrosis of bone; E11.51 Type 2 diabetes mellitus with diabetic peripheral angiopathy without gangrene; E11.22 Type 2 diabetes mellitus with diabetic chronic kidney disease; I13.0 Hypertensive heart and chronic kidney disease with heart failure and stage 1 through stage 4 chronic kidney disease, or unspecified chronic kidney disease; N18.9 Chronic kidney disease, unspecified; I50.9 Heart failure, unspecified; I25.2 Old myocardial infarction; I25.10 Atherosclerotic heart disease of native coronary artery without angina pectoris; Z79.4 Long term (current) use of insulin; Z79.82 Long term (current) use of aspirin; Z79.899 Other long term (current) drug therapy; Z87.891 Personal history of nicotine dependence; Z95.1 Presence of aortocoronary bypass graft; Z86.73 Personal history of transient ischemic attack (TIA), and cerebral infarction without residual deficits; Y83.5 Amputation of limb(s) as the cause of abnormal reaction of the patient, or of later complication, without mention of misadventure at the time of the procedure | CPT/HCPCS: 82962; G0277; 99183 ==

== ENCOUNTER 2021-11-28 08:45 | Outpatient (CLI) | payer BC, MEDICAID | END 2021-11-28 08:46 | disposition home or self-care (01) | LOC: WOUND 08:45 | PROVIDERS: ATTEND Internal Medicine | DX: M86.672 Other chronic osteomyelitis, left ankle and foot (principal); E11.69 Type 2 diabetes mellitus with other specified complication; T87.89 Other complications of amputation stump; E11.621 Type 2 diabetes mellitus with foot ulcer; L97.524 Non-pressure chronic ulcer of other part of left foot with necrosis of bone; E11.51 Type 2 diabetes mellitus with diabetic peripheral angiopathy without gangrene; E11.22 Type 2 diabetes mellitus with diabetic chronic kidney disease; I13.0 Hypertensive heart and chronic kidney disease with heart failure and stage 1 through stage 4 chronic kidney disease, or unspecified chronic kidney disease; N18.9 Chronic kidney disease, unspecified; I50.9 Heart failure, unspecified; I25.2 Old myocardial infarction; I25.10 Atherosclerotic heart disease of native coronary artery without angina pectoris; Z87.891 Personal history of nicotine dependence; Z79.4 Long term (current) use of insulin; Z79.82 Long term (current) use of aspirin; Z79.899 Other long term (current) drug therapy; Z95.1 Presence of aortocoronary bypass graft; Z86.73 Personal history of transient ischemic attack (TIA), and cerebral infarction without residual deficits; Y83.5 Amputation of limb(s) as the cause of abnormal reaction of the patient, or of later complication, without mention of misadventure at the time of the procedure | CPT/HCPCS: 82962; G0277; 99183 ==

== ENCOUNTER 2021-11-29 08:47 | Outpatient (CLI) | payer BC, MEDICAID | END 2021-11-29 08:48 | disposition home or self-care (01) | LOC: WOUND 08:47 | PROVIDERS: ATTEND Surgery | DX: M86.672 Other chronic osteomyelitis, left ankle and foot (principal); E11.69 Type 2 diabetes mellitus with other specified complication; T87.89 Other complications of amputation stump; E11.621 Type 2 diabetes mellitus with foot ulcer; L97.524 Non-pressure chronic ulcer of other part of left foot with necrosis of bone; E11.51 Type 2 diabetes mellitus with diabetic peripheral angiopathy without gangrene; E11.22 Type 2 diabetes mellitus with diabetic chronic kidney disease; I13.0 Hypertensive heart and chronic kidney disease with heart failure and stage 1 through stage 4 chronic kidney disease, or unspecified chronic kidney disease; N18.9 Chronic kidney disease, unspecified; I50.9 Heart failure, unspecified; I25.2 Old myocardial infarction; I25.10 Atherosclerotic heart disease of native coronary artery without angina pectoris; Z79.4 Long term (current) use of insulin; Z79.82 Long term (current) use of aspirin; Z79.899 Other long term (current) drug therapy; Z87.891 Personal history of nicotine dependence; Z95.1 Presence of aortocoronary bypass graft; Z86.73 Personal history of transient ischemic attack (TIA), and cerebral infarction without residual deficits; Y83.5 Amputation of limb(s) as the cause of abnormal reaction of the patient, or of later complication, without mention of misadventure at the time of the procedure | CPT/HCPCS: 82962; G0277; 99183 ==

== ENCOUNTER 2021-12-03 09:26 | Outpatient (CLI) | payer BC, MEDICAID | END 2021-12-03 09:27 | disposition home or self-care (01) | LOC: WOUND 09:26 | PROVIDERS: ATTEND Internal Medicine | DX: M86.672 Other chronic osteomyelitis, left ankle and foot (principal); E11.69 Type 2 diabetes mellitus with other specified complication; T87.89 Other complications of amputation stump; E11.621 Type 2 diabetes mellitus with foot ulcer; L97.524 Non-pressure chronic ulcer of other part of left foot with necrosis of bone; E11.51 Type 2 diabetes mellitus with diabetic peripheral angiopathy without gangrene; E11.22 Type 2 diabetes mellitus with diabetic chronic kidney disease; I13.0 Hypertensive heart and chronic kidney disease with heart failure and stage 1 through stage 4 chronic kidney disease, or unspecified chronic kidney disease; N18.9 Chronic kidney disease, unspecified; I50.9 Heart failure, unspecified; I25.2 Old myocardial infarction; I25.10 Atherosclerotic heart disease of native coronary artery without angina pectoris; Z79.4 Long term (current) use of insulin; Z79.82 Long term (current) use of aspirin; Z79.899 Other long term (current) drug therapy; Z87.891 Personal history of nicotine dependence; Z95.1 Presence of aortocoronary bypass graft; Z86.73 Personal history of transient ischemic attack (TIA), and cerebral infarction without residual deficits; Y83.5 Amputation of limb(s) as the cause of abnormal reaction of the patient, or of later complication, without mention of misadventure at the time of the procedure | CPT/HCPCS: 82962; G0277; 99183 ==

== ENCOUNTER 2021-12-05 08:45 | Outpatient (CLI) | payer BC, MEDICAID | END 2021-12-05 08:46 | disposition home or self-care (01) | LOC: WOUND 08:45 | PROVIDERS: ATTEND Internal Medicine | DX: M86.672 Other chronic osteomyelitis, left ankle and foot (principal); E11.69 Type 2 diabetes mellitus with other specified complication; T87.89 Other complications of amputation stump; E11.621 Type 2 diabetes mellitus with foot ulcer; L97.524 Non-pressure chronic ulcer of other part of left foot with necrosis of bone; E11.51 Type 2 diabetes mellitus with diabetic peripheral angiopathy without gangrene; E11.22 Type 2 diabetes mellitus with diabetic chronic kidney disease; I13.0 Hypertensive heart and chronic kidney disease with heart failure and stage 1 through stage 4 chronic kidney disease, or unspecified chronic kidney disease; N18.9 Chronic kidney disease, unspecified; I50.9 Heart failure, unspecified; I25.2 Old myocardial infarction; I25.10 Atherosclerotic heart disease of native coronary artery without angina pectoris; Z79.4 Long term (current) use of insulin; Z79.82 Long term (current) use of aspirin; Z79.899 Other long term (current) drug therapy; Z87.891 Personal history of nicotine dependence; Z95.1 Presence of aortocoronary bypass graft; Z86.73 Personal history of transient ischemic attack (TIA), and cerebral infarction without residual deficits; Y83.5 Amputation of limb(s) as the cause of abnormal reaction of the patient, or of later complication, without mention of misadventure at the time of the procedure | CPT/HCPCS: 82962; G0277; 99183 ==

== ENCOUNTER 2021-12-06 08:37 | Outpatient (CLI) | payer BC, MEDICAID | END 2021-12-06 08:38 | disposition home or self-care (01) | LOC: WOUND 08:37 | PROVIDERS: ATTEND Surgery | DX: M86.672 Other chronic osteomyelitis, left ankle and foot (principal); E11.69 Type 2 diabetes mellitus with other specified complication; T87.89 Other complications of amputation stump; E11.621 Type 2 diabetes mellitus with foot ulcer; L97.524 Non-pressure chronic ulcer of other part of left foot with necrosis of bone; E11.51 Type 2 diabetes mellitus with diabetic peripheral angiopathy without gangrene; E11.22 Type 2 diabetes mellitus with diabetic chronic kidney disease; I13.0 Hypertensive heart and chronic kidney disease with heart failure and stage 1 through stage 4 chronic kidney disease, or unspecified chronic kidney disease; N18.9 Chronic kidney disease, unspecified; I50.9 Heart failure, unspecified; I25.2 Old myocardial infarction; I25.10 Atherosclerotic heart disease of native coronary artery without angina pectoris; Z79.4 Long term (current) use of insulin; Z79.82 Long term (current) use of aspirin; Z79.899 Other long term (current) drug therapy; Z87.891 Personal history of nicotine dependence; Z95.1 Presence of aortocoronary bypass graft; Z86.73 Personal history of transient ischemic attack (TIA), and cerebral infarction without residual deficits; Y83.5 Amputation of limb(s) as the cause of abnormal reaction of the patient, or of later complication, without mention of misadventure at the time of the procedure | CPT/HCPCS: 82962; G0277; 99183 ==

== ENCOUNTER 2021-12-09 09:02 | Outpatient (CLI) | payer BC, MEDICAID | END 2021-12-09 09:03 | disposition home or self-care (01) | LOC: WOUND 09:02 | PROVIDERS: ATTEND Surgery | DX: M86.672 Other chronic osteomyelitis, left ankle and foot (principal); E11.69 Type 2 diabetes mellitus with other specified complication; T87.89 Other complications of amputation stump; E11.621 Type 2 diabetes mellitus with foot ulcer; L97.524 Non-pressure chronic ulcer of other part of left foot with necrosis of bone; E11.51 Type 2 diabetes mellitus with diabetic peripheral angiopathy without gangrene; E11.22 Type 2 diabetes mellitus with diabetic chronic kidney disease; I13.0 Hypertensive heart and chronic kidney disease with heart failure and stage 1 through stage 4 chronic kidney disease, or unspecified chronic kidney disease; N18.9 Chronic kidney disease, unspecified; I50.9 Heart failure, unspecified; I25.2 Old myocardial infarction; I25.10 Atherosclerotic heart disease of native coronary artery without angina pectoris; Z79.4 Long term (current) use of insulin; Z79.82 Long term (current) use of aspirin; Z79.899 Other long term (current) drug therapy; Z87.891 Personal history of nicotine dependence; Z95.1 Presence of aortocoronary bypass graft; Z86.73 Personal history of transient ischemic attack (TIA), and cerebral infarction without residual deficits; Y83.5 Amputation of limb(s) as the cause of abnormal reaction of the patient, or of later complication, without mention of misadventure at the time of the procedure | CPT/HCPCS: 82962; G0277; 99183 ==

== ENCOUNTER 2021-12-10 09:23 | Outpatient (CLI) | payer BC, MEDICAID | END 2021-12-10 09:24 | disposition home or self-care (01) | LOC: WOUND 09:23 | PROVIDERS: ATTEND Internal Medicine | DX: M86.672 Other chronic osteomyelitis, left ankle and foot (principal); E11.69 Type 2 diabetes mellitus with other specified complication; T87.89 Other complications of amputation stump; E11.621 Type 2 diabetes mellitus with foot ulcer; L97.524 Non-pressure chronic ulcer of other part of left foot with necrosis of bone; E11.51 Type 2 diabetes mellitus with diabetic peripheral angiopathy without gangrene; E11.22 Type 2 diabetes mellitus with diabetic chronic kidney disease; I13.0 Hypertensive heart and chronic kidney disease with heart failure and stage 1 through stage 4 chronic kidney disease, or unspecified chronic kidney disease; N18.9 Chronic kidney disease, unspecified; I50.9 Heart failure, unspecified; I25.2 Old myocardial infarction; I25.10 Atherosclerotic heart disease of native coronary artery without angina pectoris; Z79.4 Long term (current) use of insulin; Z79.82 Long term (current) use of aspirin; Z79.899 Other long term (current) drug therapy; Z87.891 Personal history of nicotine dependence; Z95.1 Presence of aortocoronary bypass graft; Z86.73 Personal history of transient ischemic attack (TIA), and cerebral infarction without residual deficits; Y83.5 Amputation of limb(s) as the cause of abnormal reaction of the patient, or of later complication, without mention of misadventure at the time of the procedure | CPT/HCPCS: 82962; G0277; 99183 ==

== ENCOUNTER 2021-12-11 09:55 | Outpatient (CLI) | payer BC, MEDICAID | END 2021-12-11 09:56 | disposition home or self-care (01) | LOC: WOUND 09:55 | PROVIDERS: ATTEND Surgery | DX: M86.672 Other chronic osteomyelitis, left ankle and foot (principal); E11.69 Type 2 diabetes mellitus with other specified complication; T87.89 Other complications of amputation stump; E11.621 Type 2 diabetes mellitus with foot ulcer; L97.524 Non-pressure chronic ulcer of other part of left foot with necrosis of bone; E11.51 Type 2 diabetes mellitus with diabetic peripheral angiopathy without gangrene; E11.22 Type 2 diabetes mellitus with diabetic chronic kidney disease; I13.0 Hypertensive heart and chronic kidney disease with heart failure and stage 1 through stage 4 chronic kidney disease, or unspecified chronic kidney disease; N18.9 Chronic kidney disease, unspecified; I50.9 Heart failure, unspecified; I25.2 Old myocardial infarction; I25.10 Atherosclerotic heart disease of native coronary artery without angina pectoris; Z79.4 Long term (current) use of insulin; Z79.82 Long term (current) use of aspirin; Z79.899 Other long term (current) drug therapy; Z87.891 Personal history of nicotine dependence; Z95.1 Presence of aortocoronary bypass graft; Z86.73 Personal history of transient ischemic attack (TIA), and cerebral infarction without residual deficits; Y83.5 Amputation of limb(s) as the cause of abnormal reaction of the patient, or of later complication, without mention of misadventure at the time of the procedure | CPT/HCPCS: 82962; G0277; 99183 ==